=== PATIENT | male | born 1960 | race African-American/Black ===

== ENCOUNTER 2020-11-07 06:56 | Observation (INO) | payer OTHER, SELFPAY ==
[2020-11-07] VITALS (13 sets, daily range): BP systolic 102–141; BP diastolic 66–99; PULSE 70–93; RESP 18–20; TEMP 35.9–36.8; O2SAT 94–100; BMI 32.0
--- NOTE | ~2020-11-07 | US_ITS ---
US abdomen limited INDICATION: Elevated liver function tests PROCEDURE: Realtime right upper abdominal ultrasound. COMPARISON: No prior studies for comparison. FINDINGS: The pancreas is normal without focal mass or pancreatic ductal dilation. Liver echotexture is normal without focal mass or intrahepatic biliary dilatation. There is to and fro flow in the po rtal vein which can be indicative of increased portal venous pressure. There is ascites. There is gallbladder wall thickening. No gallstones. Common bile duct measures 6.5 mm. No sonograph ic Cueva's sign. IMPRESSION: 1: To and fro flow in the portal vein which can be indicative of increased portal venous pressure. 2: Ascites. 3: Mild gallbladder wall thickening measuring 6 mm. This could indicate interstitial edema, chronic l iver disease or chronic cholecystitis. Reviewed, dictated and finalized at location A. IMPRESSION: 1: To and fro flow in the portal vein which can be indicative of increased port al venous pressure. 2: Ascites. 3: Mild gallbladder wall thickening measuring 6 mm. This could indicate interst itial edema, chronic liver disease or chronic cholecystitis.
--- NOTE | ~2020-11-07 | CT_ITS ---
EXAMINATION: CT abdomen pelvis wo con DATE: 11/07/2020 17:18 INDICATION: Hematuria. TECHNIQUE: Computed tomography (CT) of the abdomen and pelvis was performed without intravenous contr ast. Automated exposure control and iterative reconstruction technique were employed. The dose-length product was 971.47 mGy-cm. COMPARISON: None. FINDINGS: The visualized portions of the lung bases demonstrate mild atelectasis. There is a small ri ght pleural effusion. Cardiomegaly is noted. There are pacer wires in the right ventricle and coronar y sinus. No pericardial effusion. Calcifications in the liver and spleen are consistent with old gran ulomatous disease. The gallbladder is normal in size. Gallbladder wall thickening is seen, likely sec ondary to interstitial edema. The pancreas, adrenal glands, and kidneys are normal. There is no uroli thiasis. Stool distends the rectum and sigmoid pain there is a large, severe on the colon. There is p rominent fat in the left inguinal canal that may be a hernia. There are widespread arterial calcifica tions. There is a mildly enlarged right external iliac lymph node, likely reactive. The bladder is de compressed. There is diffuse bladder wall thickening, likely secondary to chronic outlet obstruction from the mildly enlarged prostate. There is a small volume of ascites. There is mild thoracolumbar sp ondylosis. IMPRESSION: 1. Diffuse bladder wall thickening, likely secondary to chronic outlet obstruction from the mildly en larged prostate. 2. Stool distends the rectosigmoid. 3. Small volume of ascites. 4. Small right pleural effusion. 5. Mildly enlarged right external iliac lymph node, likely reactive. Reviewed, dictated and finalized at location A. IMPRESSION: 1. Diffuse bladder wall thickening, likely secondary to chronic outlet obstruct ion from the mildly enlarged prostate. 2. Stool distends the rectosigmoid. 3. Small volume of ascites. 4. Small right pleural effusion. 5. Mildly enlarged right external iliac lymph node, likely reactive.
--- NOTE | ~2020-11-07 | US_ITS ---
US pelvic limited 11/08/2020 09:49 Indication: Hematuria Procedure: High-resolution ultrasound of the pelvis Comparison: No prior studies for comparison. Findings: There is mild bladder wall thickening measuring 0.43 cm. No focal bladder wall mass identif ied. Bilateral ureteral jets are present. Impression: 1: Mild diffuse bladder wall thickening. Consider cystitis in the appropriate clinical setting. Reviewed, dictated and finalized at location A. Impression: 1: Mild diffuse bladder wall thickening. Consider cystitis in the appropriate c linical setting.
--- NOTE | ~2020-11-07 | CT_ITS ---
EXAMINATION: CT brain wo con DATE: 11/07/2020 17:18 INDICATION: Confusion. TECHNIQUE: Computed tomography (CT) of the head was performed without intravenous contrast. The mA wa s adjusted according to patient size. Iterative reconstruction technique was employed. The dose-lengt h product was 605.33 mGy-cm. COMPARISON: None FINDINGS: There is no intracranial hemorrhage, acute infarction, or abnormal intracranial mass lesion . The ventricles are normal in size. There is mucosal thickening in the paranasal sinuses. There is f luid in the maxillary sinuses. There is thickening and sclerosis of the lora of right sphenoid sinus , consistent chronic sinusitis. There is a trace right mastoid effusion. IMPRESSION: 1. Normal brain. 2. Chronic sinusitis. Reviewed, dictated and finalized at location A.
--- NOTE | ~2020-11-07 | XR_ITS ---
EXAMINATION: XR chest 1V portable DATE: 11/07/2020 17:30 INDICATION: Shortness of breath. TECHNIQUE: A single frontal view of the chest was obtained. COMPARISON: CT abdomen and pelvis 11/07/2020 FINDINGS: There is no pneumonia, pleural effusion, or pneumothorax. Cardiomegaly is noted. There is a left chest pacer/defibrillator with leads in right atrium, right ventricle, and coronary sinus. IMPRESSION: 1. Cardiomegaly. Reviewed, dictated and finalized at location A. IMPRESSION: 1. Cardiomegaly.
--- NOTE | ~2020-11-07 | US_ITS ---
EXAMINATION: US renal BI DATE: 11/09/2020 15:23 INDICATION: Acute kidney injury. TECHNIQUE: Multiple ultrasound grayscale images of the kidneys were obtained. COMPARISON: CT abdomen and pelvis 11/07/2020 FINDINGS: The right kidney measures 11.0 x 4.4 x 5.0 cm. The left kidney measures 11.6 x 5.2 x 4.6 cm. The kidn eys demonstrate normal parenchymal echogenicity. There is no hydronephrosis. The bladder is normal. IMPRESSION: 1. Normal kidneys. No hydronephrosis. Reviewed, dictated and finalized at location B.
--- NOTE | 2020-11-07 07:28 | ED.MALEGU ---
HPI - Male Genitourinary General Chief complaint: Urogenital-Male Stated complaint: LETHARGY,HEMATURIA Time Seen by Provider: 11/07/20 07:00 History of Present Illness HPI Narrative: 60 yo male w/ h/o DM, CHF, HTN, atrial fibrillation presents from senior living for hematuria. The patient says that he does not really know why he is here. He reports that the senior living staff woke him up and told him that there was blood in his diaper and he was going to the hospital. He denies dysuria, abdominal pain, back pain, nausea, vomiting, chest pain, SOB, weakness, or any other complaint. He says that he is on blood thinners, although only has aspirin in his med list. Per nurse and EMS report: He was found to have a long blood clot coming from his penis and when it was removed it was followed by dark urine. Related Data Home Medications Medication Instructions Recorded Confirmed allopurinol 100 mg PO DAILY 11/07/20 ascorbic acid (vitamin C) 1 g PO DAILY 11/07/20 aspirin 324 mg PO DAILY 11/07/20 carvedilol [Coreg] 3.125 mg PO BID 11/07/20 duloxetine [Cymbalta] 60 mg PO DAILY 11/07/20 emollient combination no.[id number] ea TOPICAL 11/07/20 [Eucerin] ferrous sulfate 325 mg PO DAILY 11/07/20 furosemide 80 mg PO DAILY 11/07/20 gabapentin 300 mg PO HS 11/07/20 insulin glargine [Lantus U-100 5 unit SUBCUT DAILY 11/07/20 Insulin] isosorbide dinitrate 5 mg PO BID 11/07/20 magnesium gluconate 27 mg PO DAILY 11/07/20 metolazone 2.5 mg PO DAILY 11/07/20 multivitamin [Multiple Vitamin] 1 tablet PO DAILY 11/07/20 potassium chloride 20 meq PO DAILY 11/07/20 pregabalin [Lyrica] 150 mg PO TID 11/07/20 ropinirole [Requip] 0.5 mg PO HS 11/07/20 thiamine HCl (vitamin B1) 100 mg PO DAILY 11/07/20 Allergies Allergy/AdvReac Type Severity Reaction Status Date / Time No Known Allergies Allergy Verified 11/07/20 07:31 Review of Systems Review of Systems: All systems reviewed & are unremarkable except as noted in HPI and below Constitutional: Constitutional: Denies chills, Denies fever(s) and Denies weakness Eyes: Eyes: Reports no additional eye complaints Cardiovascular: Cardiovascular: Denies chest pain Respiratory: Respiratory: Denies dyspnea Gastrointestinal: Gastrointestinal: Denies abdominal pain, Denies diarrhea, Denies nausea and Denies vomiting Genitourinary: Genitourinary: Denies dysuria Musculoskeletal: Musculoskeletal: Denies back pain Neurologic: Denies dizziness and Denies weakness PMFSH Past Medical History Medical History Atrial fibrillation CHF (congestive heart failure) Diabetes mellitus HTN (hypertension) Pacemaker Social History Social History Living arrangements: senior living Gender identity (if verbalized by the patient): Male Exam Const: General: no acute distress and alert Nutritional Appearance: well nourished Orientation/consciousness: patient oriented x3 HENMT: Mouth: Yes dry mucous membranes Eyes: Pupils: Equal, round and reactive pupils present EOM: EOMs intact bilaterally Other: mild exophthalmos and muddy sclera Neck: Neck: normal visual inspection Chest: Chest palpation & inspection: normal inspection of the chest and no tenderness Resp: Effort & Inspection: normal respiratory effort Auscultation: clear to auscultation bilaterally Cardio: Rate: regular rate Rhythm: regular rhythm GI: GI Palp: Yes Soft to palpation and No Tenderness to palpation present (GI) : General: Yes bladder normal to palpation Male General Exam: Yes normal external exam Penis: Yes normal penis and Yes uncircumcised Scrotum: scrotum normal Back/Spine/Pelvis: Back: no CVA tenderness Skin: General skin exam: normal color Rashes: no rashes Neuro: General: patient oriented x3, moves all extremities and no focal motor deficits Cranial nerves: Yes CN's II-XII intact bilaterally S
[2020-11-07] MEDS: SODIUM CHLORIDE 0.9% IV 500 ML 999 ML IV CONT (08:07)
--- NOTE | 2020-11-07 08:20 | PC.NURSE ---
Contacted lab in regards to patients blood and urine from [facility], states did not receive. MD and devulcanizer charger notified. Recollected all specimens and sent to lab.
[2020-11-07 09:09] LABS: Basophils Percent Auto 0.5 % (0.2-1.2); Eosinophils Absolute Auto 0.1 K/mm3 (0-0.3); Eosinophils Percent Auto 1.9 % (0-4.4); Hematocrit 31.4 % (42.0-52.0); Immature Granulocyte Absolute 0.02 K/mm3 (0.00-0.031); Immature Granulocyte Percent A 0.5 % (0-0.5); Immature Platelet Fraction Pct 11.5 % (0.9-11.2); Lymphocytes Absolute Auto 1.23 K/mm3 (0.9-3.2); Lymphocytes Percent Auto 28.6 % (18.3-44.2); Mean Corpuscular HGB Conc 31.8 g/dl (32-36); Mean Corpuscular Hemoglobin 32.3 pg (26-34); Mean Corpuscular Volume 101.3 fl (80-100); Mean Platelet Volume 13.3 fl (7.4-10.4); Monocytes Absolute Auto 0.5 K/mm3 (0.1-0.6); Monocytes Percent Auto 12.6 % (2.6-8.5); Neutrophils Absolute Auto 2.4 K/mm3 (1.3-6.7); Neutrophils Percent Auto 55.9 % (45.5-73.1); Platelet Count Result 61 k/mm3 (150-375); White Blood Count 4.3 K/mm3 (4.5-10.0)
[2020-11-07 09:17] LABS: Lactic Acid Reflex 2.2 mmol/L (0.7-2.1); Potassium 5.2 mmol/L (3.4-5.0)
[2020-11-07 09:18] LABS: Creatine Kinase 412 U/L (55-170)
[2020-11-07 09:20] LABS: Alanine Aminotransferase 22 U/L (4-50); Alkaline Phosphatase 221 U/L (38-126); Anion Gap 9 mmol/L (8-16); Aspartate Amino Transferase 39 U/L (17-59); Bilirubin,Total 2.6 mg/dL (0.2-1.3); Blood Urea Nitrogen 62 mg/dL (9-20); Carbon Dioxide 24 mmol/L (22-30); Chloride 106 mmol/L (98-107); Estimated CRCL calculation 43 ml/min; Estimated Glomerular Filt Rate 39; Glucose 96 mg/dL (75-110); Sodium 139 mmol/L (137-145)
[2020-11-07 09:25] LABS: Large Platelets Present; Macrocytosis 1+ (NORMAL); Ovalocytes 1+ (NORMAL); Platelet Estimate Decreased (Adequate)
[2020-11-07 09:44] LABS: Add Urine Microscopic? YES; Appearance Urine Cloudy (Clear); Bacteria Urine Trace /hpf; Bilirubin Urine Negative (Negative); Blood Urine 3+ (Negative); Color Urine Yellow (Yellow); Glucose Urine UA Negative (Negative); Ketones Urine Negative (Negative); Leukocyte Esterase Ur Trace LEU/UL (Negative); Nitrate Urine Negative (Negative); Protein Urine 1+ mg/dL (Negative); RBC Urine 21-50 /hpf (0-2); Specific Grav Ur 1.014 (1.001-1.035); Squamous Epithelial Cell Urine Rare /hpf (Few); WBC Urine 16-20 /hpf
[2020-11-07 11:33] LABS: T4 Thyroxine 8.57 ug/dL (5.53-11.0)
[2020-11-07 11:46] LABS: Total Triiodothyronine (T3) 0.92 NG/ML (0.97-1.69)
[2020-11-07 12:04] LABS: Reflex Lactic Acid Yes or No Add Lactic
[2020-11-07 12:36] LABS: Lactic Acid 1.8 mmol/L (0.7-2.1)
--- NOTE | 2020-11-07 13:27 | ADMGEN ---
This patient, Clark Montes De Oca, was admitted to [facility] Surg Room 307-01. Patient/family oriented to hospital policies and general routines including ID bracelet, bed and alarms, visiting hours, pain management, procedures, bathroom and other care routines, personal items, smoking policy, room service/diet, and visiting hours. Information on how to activate the Rapid Response Team has been discussed. Patient/Family are encouraged to report perceived risks to care and to ask questions if they do not understand what they are told or what they should do.
[2020-11-07] MEDS: LACTATED RINGERS 1,000 ML 100 ML IV CONT (14:33)
[2020-11-07 16:49] LABS: Glucose Point of Care 106 (65-105)
--- NOTE | 2020-11-07 16:53 | PM.IMHP ---
H&P: HPI History of Present Illness Date/Time: 11/07/20 16:53 this is a 60-year-old male patient who is at it was filled [facility]. The patient was sent to the emergency room due to confusion and a large clot was found in his diaper. The patient still continues to have difficulty urinating. The patient is a very poor historian and I am not able to get much information from the patient. He cannot recall of his information. I did call is power attorney general who gave me some information and also I did not receive any paperwork from the residential at this point. I am awaiting further information from them. I did call the residential and they stated that he is typically alert and orientated to person place and time. However today he had altered mental status changes and was not himself and that is why they sent him to the residential. The patient does not have a Romero catheter in is not unclear if he had previously had a Romero catheter. Or if he had any history of any problems with his prostate. The patient has exophthalmos. The patient's TSH was reported as 13.3 and his T3 0.92 and his T4 is normal. I reported these findings to my collaborative doctor continuous miner operator helper (Dr. Mcmillan) and recommended that there was nothing to do for this at this point. This gentleman looks from earlier to me however I do not see any previous admission note on this patient. The patient's lactic acid was initially 2.2 is now 1.8. Total bilirubin is 2.6 patient does appear to be jaundiced. His liver enzymes are all elevated. The patient is on thiamin so I suspect that he may have a history of alcoholism. He is also on Lyrica. I am awaiting further paperwork from the residential. The patient was started on IV fluids in the emergency room. Admitted for observation on the date of service of 11/07/2020. Chief Complaint: Hematuria Review of Systems Review of Systems: ROS unobtainable: Yes unobtainable due to mental status Constitutional: Constitutional: Reports as per HPI and Reports no additional constitutional complaints Eyes: Eyes: Reports as per HPI and Reports no additional eye complaints ENT: Reports system reviewed and no additional complaints, except as documented and Reports Normal hearing present Cardiovascular: Cardiovascular: Reports no additional cardiovascular complaints Respiratory: Respiratory: Reports no additional respiratory complaints and Reports no additional respiratory complaints Gastrointestinal: Gastrointestinal: Reports as per HPI and Reports no additional gastrointestinal complaints Musculoskeletal: Musculoskeletal: Reports no additional musculoskeletal complaints Integumentary/Breasts: Skin/Breast: Reports system reviewed and no additional complaints, except as docu and Reports as per HPI Neurologic: Reports system reviewed and no additional complaints, except as documented, Reports as per HPI and Reports Normal hearing present Psychiatric: Psychiatric: Reports no additional psychiatric complaints and Reports as per HPI Endocrine: Endocrine: Reports no additional endocrine complaints Hematologic/Lymphatic: Hematologic/Lymphatic: Reports no additional hematologic/lymphatic complaints Allergic/Immunologic: Allergic/Immunologic: Reports no additional allergic/immunologic complaints [facility] Past Medical History Medical History (Updated 11/07/20 @ 17:14 by Abigail Pillai NP) Atrial fibrillation CHF (congestive heart failure) Diabetes mellitus HTN (hypertension) Pacemaker Surgical History Surgical History (Updated 11/07/20 @ 17:07 by Abigail Pillai NP) Surgical history unknown Family History Family History Mother Heart failure Social History Social History (Updated 11/07/20 @ 17:10 by Abigail Pillai NP) Social History: The patient tells me that he is single and that he only has 1 child. The patient was not aware which residential he came from but I
[2020-11-07] MEDS: PREGABALIN (*CRX) 75 MG CAPSULE 150 MG PO (17:58)
[2020-11-07] MEDS: ISOSORBIDE DINITRATE 5 MG TABLET PO (17:59)
--- NOTE | 2020-11-07 18:25 | WPDURCON ---
Assessment and Plan Assessment and plan (1) Acute cystitis: Code(s): N30.00 - Acute cystitis without hematuria Status: Acute (2) BPH loc w urin obs/LUTS: Code(s): N40.1 - Benign prostatic hyperplasia with lower urinary tract symptoms Status: Acute (3) Microscopic hematuria: Code(s): R31.29 - Other microscopic hematuria Status: Acute Assessment and Plan: Combination of reports of difficulty voiding with microscopic hematuria, probable urinary tract infection and CT findings of prostatic enlargement with bladder wall thickening all suggest underlying BPH. I suspect his transient hematuria is a result of a hemorrhagic cystitis. A urine culture has been ordered. I will empirically start Omnicef pending culture completion. Additionally I will start both finasteride and tamsulosin for underlying BPH. Urology Consult Note HPI Date Seen: 11/07/20 Requesting Physician: Bing Mcmillan MD Primary Care Provider: Myke Varela, Consult Narrative Narrative: Clark Montes De Oca is a 60 year old male who was previously a known to our practice. He somewhat of a poor historian but was admitted through the emergency department after it was noted that he had a clot in his depends at his care home resident. In the intake history and physical there is also documentation of difficulty voiding in the past. When questioned specifically, however, the patient denies a sense of urinary hesitancy intermittency diminished stream, sense of incomplete emptying. He denies a history recurring urinary tract infection or urolithiasis in the past. Bladder scan for postvoid residual since admission was less than 25 cc. urinalysis is recently been obtained and does show signs of urinary tract infection. A CT scan abdomen pelvis without contrast shows prostatic enlargement and bladder wall thickening. Review of Systems Cardiovascular: Cardiovascular: Denies chest pain, Denies lightheadedness, Denies palpitations and Denies dyspnea Respiratory: Respiratory: Denies dyspnea Gastrointestinal: Gastrointestinal: Denies diarrhea, Denies nausea and Denies vomiting Genitourinary: Genitourinary: Denies hematuria and Denies dysuria Endocrine: Endocrine: Denies palpitations [facility] Past Medical History Medical History Atrial fibrillation CHF (congestive heart failure) Diabetes mellitus HTN (hypertension) Pacemaker Surgical History Surgical History Surgical history unknown Family History Family History Mother Heart failure Social History Social History Social History: The patient tells me that he is single and that he only has 1 child. The patient was not aware which care home he came from but I was able to talk to the contact acid plant operator helper who is also the power business attorney Misty Ortiz. The patient is listed as a full code. Again I did request information from [facility] rehab. The patient is unemployed most likely on disability. Smoking status: Never smoker Alcohol intake: never Substance use: never Living arrangements: care home Gender identity (if verbalized by the patient): Male Sexual Orientation (if Verbalized by the Patient): Straight or Heterosexual Spiritual care concerns: No Meds Home Medications and Allergies Home Medications Medication Instructions Recorded Confirmed Type allopurinol 100 mg PO DAILY 11/07/20 11/07/20 History ascorbic acid (vitamin C) 1 g PO DAILY 11/07/20 11/07/20 History aspirin 324 mg PO DAILY 11/07/20 11/07/20 History carvedilol [Coreg] 3.125 mg PO BID 11/07/20 11/07/20 History duloxetine [Cymbalta] 60 mg PO DAILY 11/07/20 11/07/20 History ferrous sulfate 325 mg PO DAILY 11/07/20 11/07/20 History furosem
[2020-11-07] MEDS: BISACODYL 10 MG SUPPOSITORY RECTAL (18:32)
[2020-11-07] MEDS: CEFDINIR 300 MG CAPSULE PO (18:33)
[2020-11-07] MEDS: TAMSULOSIN HCL 0.4 MG CAPSULE PO (18:33)
[2020-11-07 18:40] LABS: Hematocrit 32.6 % (42.0-52.0); Hemoglobin 10.3 g/dL (14.0-18.0)
[2020-11-07 18:48] LABS: Ammonia 39 umol/L (9-30)
[2020-11-07 19:03] LABS: Anion Gap 10 mmol/L (8-16); Blood Urea Nitrogen 60 mg/dL (9-20); Calcium 9.1 mg/dL (8.4-10.2); Carbon Dioxide 24 mmol/L (22-30); Chloride 105 mmol/L (98-107); Estimated CRCL calculation 40 ml/min; Estimated Glomerular Filt Rate 35; Glucose 128 mg/dL (75-110); Potassium 4.5 mmol/L (3.4-5.0); Sodium 139 mmol/L (137-145)
[2020-11-07 19:58] LABS: Hepatitis B Surface Antigen Negative (Negative)
[2020-11-07 20:04] LABS: HAV RESULT Negative (Negative); Hepatitis B Core IgM Result Negative (Negative)
[2020-11-07 20:16] LABS: Hepatitis C Virus Antibody Negative (Negative)
[2020-11-07] MEDS: carvediloL 3.125 MG TABLET PO (21:58)
[2020-11-07] MEDS: GABAPENTIN 300 MG CAPSULE PO (21:58)
[2020-11-07] MEDS: rOPINIRole HCL 0.5 MG TABLET PO (21:58)
[2020-11-07 22:09] LABS: Glucose Point of Care 121 (65-105)
[2020-11-07 23:58] LABS: Hematocrit 30.2 % (42.0-52.0); Hemoglobin 9.7 g/dL (14.0-18.0)
[2020-11-08] VITALS (11 sets, daily range): BP systolic 100–118; BP diastolic 71–81; PULSE 73–93; RESP 16–20; TEMP 36.1–36.5; O2SAT 99–100
[2020-11-08] MEDS: CEFDINIR 300 MG CAPSULE PO ×2 (05:28→16:59)
[2020-11-08 07:17] LABS: Basophils Percent Auto 0.5 % (0.2-1.2); Eosinophils Absolute Auto 0.1 K/mm3 (0-0.3); Eosinophils Percent Auto 1.2 % (0-4.4); Hematocrit 30.1 % (42.0-52.0); Hemoglobin 9.6 g/dL (14.0-18.0); Immature Granulocyte Absolute 0.01 K/mm3 (0.00-0.031); Immature Granulocyte Percent A 0.2 % (0-0.5); Lymphocytes Absolute Auto 1.15 K/mm3 (0.9-3.2); Lymphocytes Percent Auto 26.6 % (18.3-44.2); Mean Corpuscular HGB Conc 31.9 g/dl (32-36); Mean Corpuscular Hemoglobin 31.9 pg (26-34); Mean Platelet Volume 12.7 fl (7.4-10.4); Monocytes Absolute Auto 0.5 K/mm3 (0.1-0.6); Monocytes Percent Auto 11.3 % (2.6-8.5); Neutrophils Absolute Auto 2.6 K/mm3 (1.3-6.7); Neutrophils Percent Auto 60.2 % (45.5-73.1); Platelet Count Result 55 k/mm3 (150-375); Red Blood Count 3.01 M/mm3 (4.6-6.20); Red Cell Distribution Width 17.9 % (11.5-14.5); White Blood Count 4.3 K/mm3 (4.5-10.0)
[2020-11-08 07:25] LABS: Hemoglobin A1C 5.7 % (<5.7)
[2020-11-08 07:27] LABS: Lactic Acid Reflex 1.8 mmol/L (0.7-2.1)
[2020-11-08 07:31] LABS: Alanine Aminotransferase 21 U/L (4-50); Albumin Level 3.7 g/dL (3.5-5.1); Alkaline Phosphatase 207 U/L (38-126); Anion Gap 9 mmol/L (8-16); Aspartate Amino Transferase 32 U/L (17-59); Bilirubin,Total 2.8 mg/dL (0.2-1.3); Blood Urea Nitrogen 56 mg/dL (9-20); Calcium 8.9 mg/dL (8.4-10.2); Carbon Dioxide 23 mmol/L (22-30); Chloride 107 mmol/L (98-107); Estimated CRCL calculation 44 ml/min; Estimated Glomerular Filt Rate 39; Glucose 103 mg/dL (75-110); Magnesium 2.3 mg/dL (1.6-2.3); Sodium 139 mmol/L (137-145)
[2020-11-08 07:46] LABS: Glucose Point of Care 82 (65-105)
[2020-11-08 09:13] LABS: Ammonia 47 umol/L (9-30)
[2020-11-08 09:22] LABS: Free T4 Free Thyroxine Reflex 1.62 ng/dL (0.78-2.19)
[2020-11-08] MEDS: INSULIN GLARGINE (*BKC) 100 UNITS/ML SUB-Q (09:43)
[2020-11-08] MEDS: THIAMINE HCL 100 MG TABLET PO (09:57)
[2020-11-08] MEDS: MAGNESIUM 27 MG TABLET (500 MG MAG GLUCONATE) PO (09:57)
[2020-11-08] MEDS: FERROUS SULFATE 324 MG TABLET PO (09:57)
[2020-11-08] MEDS: FINASTERIDE 5 MG TABLET PO (09:57)
[2020-11-08] MEDS: FUROSEMIDE 80 MG TABLET PO (09:57)
[2020-11-08] MEDS: carvediloL 3.125 MG TABLET PO ×2 (09:58→20:14)
[2020-11-08] MEDS: ISOSORBIDE DINITRATE 5 MG TABLET PO ×2 (09:59→16:59)
[2020-11-08] MEDS: MULTIVITAMINS THERAPEUTIC TAB (*BKC) 1 TABLET PO (09:59)
[2020-11-08] MEDS: EUCERIN CREAM 120 GM JAR 1 APPLIC TOPICAL (09:59)
[2020-11-08] MEDS: ASCORBIC ACID 500 MG TABLET 1000 MG PO (10:00)
[2020-11-08] MEDS: PREGABALIN (*CRX) 75 MG CAPSULE 150 MG PO ×3 (10:03→16:59)
[2020-11-08 10:43] LABS: Hematocrit 30.1 % (42.0-52.0); Hemoglobin 9.8 g/dL (14.0-18.0)
[2020-11-08] MEDS: DULoxetine HCL 60 MG CAPSULE.DR PO (10:50)
[2020-11-08] MEDS: LACTULOSE 20 GM/30 ML UDC PO ×2 (10:50→20:17)
[2020-11-08 11:36] LABS: Glucose Point of Care 85 (65-105)
--- NOTE | 2020-11-08 11:37 | WPDUROPN2 ---
Progress Note: A&P Assessment and Plan (1) Acute cystitis: Code(s): N30.00 - Acute cystitis without hematuria Status: Acute (2) BPH loc w urin obs/LUTS: Code(s): N40.1 - Benign prostatic hyperplasia with lower urinary tract symptoms Status: Acute (3) Microscopic hematuria: Code(s): R31.29 - Other microscopic hematuria Status: Acute Assessment and Plan: Combination of reports of difficulty voiding with microscopic hematuria, probable urinary tract infection and CT findings of prostatic enlargement with bladder wall thickening all suggest underlying BPH. I suspect his transient hematuria is a result of a hemorrhagic cystitis. A urine culture has been ordered. I will empirically start Omnicef pending culture completion. Additionally I will start both finasteride and tamsulosin for underlying BPH. 11/08/2020 Continues to void well without gross hematuria or signs of retention. Await urine culture. Continue both Finasteride and Tamsulosin. Subjective Subjective Date/Time Seen: 11/08/20 11:37 Comfortable, voiding well Review of Systems Cardiovascular: Cardiovascular: Denies chest pain, Denies lightheadedness, Denies palpitations and Denies dyspnea Respiratory: Respiratory: Denies dyspnea Gastrointestinal: Gastrointestinal: Denies diarrhea, Denies nausea and Denies vomiting Genitourinary: Genitourinary: Denies hematuria and Denies dysuria Endocrine: Endocrine: Denies palpitations Exam Const: General: no acute distress Resp: Effort & Inspection: normal respiratory effort GI: Inspection: non-distended GI Palp: No abdominal tenderness and No Guarding due to palpation present (GI) Auscultation: normal bowel sounds Objective Data Vital Signs Vital Signs: Vital Signs - 24 hr 11/07/20 11:59 11/07/20 12:33 11/07/20 13:20 Temperature 97.3 F L 97.1 F L 97.4 F L Pulse Rate 92 90 75 Respiratory Rate 18 18 18 Blood Pressure 127/93 H 141/66 H 105/82 Pulse Oximetry 99 97 100 11/07/20 14:00 11/07/20 16:00 11/07/20 20:00 Temperature 97.5 F L Pulse Rate 78 92 91 Respiratory Rate 18 Blood Pressure 117/87 Pulse Oximetry 100 11/07/20 21:46 11/07/20 21:58 11/08/20 00:00 Temperature 98.2 F Pulse Rate 70 92 91 Respiratory Rate 20 Blood Pressure 113/81 Pulse Oximetry 95 11/08/20 04:00 11/08/20 05:30 11/08/20 08:00 Temperature 97.6 F Pulse Rate 90 91 93 Respiratory Rate 20 Blood Pressure 114/71 Pulse Oximetry 99 11/08/20 09:58 Temperature Pulse Rate 74 Respiratory Rate Blood Pressure Pulse Oximetry Intake/Output Intake/Output: Intake & Output 11/05/20 11/06/20 11/07/20 11/08/20 23:59 23:59 23:59 23:59 Intake Total 760 150 Output Total 300 Balance 760 -150 Meds/Results Medications: Active Medications Generic Name Dose Route Start Last Admin Trade Name Freq PRN Reason Stop Dose Admin Ascorbic Acid 1,000 mg 11/08/20 09:00 11/08/20 10:00 Ascorbic Acid 500 Mg Tablet PO 1,000 mg DAILY VALERIY Administration Carvedilol 3.125 mg 11/07/20 21:00 11/08/20 09:58 Carvedilol 3.125 Mg Tablet PO 3.125 mg Q12HR VALERIY Administration Cefdinir 300 mg 11/07/20 18:00 11/08/20 05:28 Cefdinir 300 Mg Capsule PO 300 mg Q12H VALERIY Administration Dextrose 12.5 gm 11/07/20 16:33 Dextrose 50% 25 Gm/50 Ml Syringe IV PUSH PRN PRN Hypoglycemia Protocol Duloxetine HCl 60 mg 11/08/20 09:00 11/08/20 10:50 Duloxetine Hcl 60 Mg Capsule.Dr PO 60 mg DAILY VALERIY Administration Ferrous Sulfate 324 mg 11/08/20 09:00 11/08/20 09:57 Ferrous Sulfate 324 Mg Tablet PO 324 mg DAILY VALERIY Administration Finasteride 5 mg 11/08/20 09:00 11/08/20 09:57 Finasteride 5 Mg Tablet PO 5 mg QAM VALERIY Administration Furosemide 80 mg 11/08/20 09:00 11/08/20 09:57 Furosemide 80 Mg Tablet PO 80 mg DAILY VALERIY Administration Gabapentin 300 mg 11/07/20 21:00
[2020-11-08] MEDS: TAMSULOSIN HCL 0.4 MG CAPSULE PO (12:14)
[2020-11-08] MEDS: LACTATED RINGERS 1,000 ML 100 ML IV CONT (15:15)
--- NOTE | 2020-11-08 15:16 | PM.IMPN ---
Progress Note: A&P Assessment and Plan (1) Hematuria: Qualifiers: Hematuria type: unspecified type Qualified Code(s): R31.9 - Hematuria, unspecified Code(s): R31.9 - Hematuria, unspecified Status: Acute Assessment and Plan: [facility] due to blood in [facility]. No further evidence of bleeding today. H&H low but stable. Appreciate urology recommendations. Suspect may be related to cystitis. Continue cefdinir while awaiting urine culture results. He has been started on Flomax and Proscar as well for BPH. (2) Encephalopathy: Code(s): G93.40 - Encephalopathy, unspecified Status: Acute Assessment and Plan: Differentials include possible metabolic encephalopathy related to acute UTI vs. hepatic encephalopathy vs. both. Unclear patient's cognitive baseline. Today he is oriented to self and place but not time. CT brain shows no acute intracranial abnormalities. Ammonia is elevated at 47, initiate lactulose and titrate to hopefully achieve 2-3 bowel movements per day and monitor mentation. (3) Elevated TSH: Code(s): R79.89 - Other specified abnormal findings of blood chemistry Status: Acute Assessment and Plan: TSH elevated at 10.7, total T3 mildly low, T4 within normal limits. Consider rechecking closer to discharge before initiating thyroid supplementation since he is acutely ill. Vital signs are stable. (4) Anemia: Qualifiers: Anemia type: unspecified type Qualified Code(s): D64.9 - Anemia, unspecified Code(s): D64.9 - Anemia, unspecified Status: Acute Assessment and Plan: H&H low but stable. Chronicity unclear without previous labs available to review. It is possible he may have underlying CKD contributing to anemia. No further hematuria today. Monitor for further bleeding and monitor CBC. Consider transfusion if Hgb less than 7. (5) Elevated liver enzymes: Code(s): R74.8 - Abnormal levels of other serum enzymes Status: Acute Assessment and Plan: AST, ALT within normal limits. Alk-phos is elevated. Again, chronicity unclear with no previous labs for review. Hepatitis panel is negative. Imaging is consistent with liver disease and portal venous hypertension. 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 Continue home Lantus. Blood sugars are appropriate today. Continue to monitor with accu-cheks and adjust treatment as needed, cover with SSI. (7) CHF (congestive heart failure): Qualifiers: Heart failure type: unspecified Heart failure chronicity: unspecified Qualified Code(s): I50.9 - Heart failure, unspecified Code(s): I50.9 - Heart failure, unspecified Status: Chronic Assessment and Plan: Unsure of type without records available. Maintained on home Lasix, metolazone, isosorbide. Monitor with daily weights, I&Os. (8) Atrial fibrillation: Qualifiers: Atrial fibrillation type: unspecified Qualified Code(s): I48.91 - Unspecified atrial fibrillation Code(s): I48.91 - Unspecified atrial fibrillation Status: Chronic Assessment and Plan: Maintained on home Coreg. Aspirin is held due to hematuria. Does not appear to be on sys
[2020-11-08 16:28] LABS: Glucose Point of Care 87 (65-105)
[2020-11-08] MEDS: rOPINIRole HCL 0.5 MG TABLET PO (20:17)
[2020-11-08] MEDS: GABAPENTIN 300 MG CAPSULE PO (20:17)
[2020-11-08 22:51] LABS: Glucose Point of Care 109 (65-105)
[2020-11-09] VITALS (11 sets, daily range): BP systolic 105–124; BP diastolic 68–96; PULSE 72–93; RESP 18–20; TEMP 36.1–36.6; O2SAT 90–99
[2020-11-09 05:55] LABS: Basophils Percent Auto 0.8 % (0.2-1.2); Eosinophils Absolute Auto 0.1 K/mm3 (0-0.3); Eosinophils Percent Auto 1.6 % (0-4.4); Hematocrit 31.8 % (42.0-52.0); Hemoglobin 10.1 g/dL (14.0-18.0); Immature Granulocyte Absolute 0.02 K/mm3 (0.00-0.031); Immature Granulocyte Percent A 0.4 % (0-0.5); Lymphocytes Absolute Auto 1.18 K/mm3 (0.9-3.2); Lymphocytes Percent Auto 24.3 % (18.3-44.2); Mean Corpuscular HGB Conc 31.8 g/dl (32-36); Mean Corpuscular Volume 100.6 fl (80-100); Mean Platelet Volume 12.4 fl (7.4-10.4); Monocytes Absolute Auto 0.5 K/mm3 (0.1-0.6); Monocytes Percent Auto 10.7 % (2.6-8.5); Neutrophils Percent Auto 62.2 % (45.5-73.1); Platelet Count Result 55 k/mm3 (150-375); Red Blood Count 3.16 M/mm3 (4.6-6.20); Red Cell Distribution Width 17.6 % (11.5-14.5); White Blood Count 4.9 K/mm3 (4.5-10.0)
[2020-11-09] MEDS: CEFDINIR 300 MG CAPSULE PO ×2 (06:01→17:03)
[2020-11-09] MEDS: LACTATED RINGERS 1,000 ML 75 ML IV CONT (06:02)
[2020-11-09 06:04] LABS: Alanine Aminotransferase 20 U/L (4-50); Albumin Level 3.5 g/dL (3.5-5.1); Alkaline Phosphatase 203 U/L (38-126); Anion Gap 7 mmol/L (8-16); Aspartate Amino Transferase 30 U/L (17-59); Bilirubin,Total 2.9 mg/dL (0.2-1.3); Blood Urea Nitrogen 50 mg/dL (9-20); Calcium 8.7 mg/dL (8.4-10.2); Carbon Dioxide 25 mmol/L (22-30); Chloride 107 mmol/L (98-107); Estimated CRCL calculation 48 ml/min; Estimated Glomerular Filt Rate 44; Glucose 107 mg/dL (75-110); Magnesium 2.2 mg/dL (1.6-2.3); Potassium 4.2 mmol/L (3.4-5.0); Sodium 139 mmol/L (137-145)
[2020-11-09 06:06] LABS: Ammonia 19 umol/L (9-30)
--- NOTE | 2020-11-09 06:41 | WPDUROPN2 ---
Progress Note: A&P Assessment and Plan (1) BPH loc w urin obs/LUTS: Code(s): N40.1 - Benign prostatic hyperplasia with lower urinary tract symptoms Status: Acute (2) Acute cystitis: Code(s): N30.00 - Acute cystitis without hematuria Status: Acute Assessment and Plan: Nothing new from standpoint. Still waiting for completion of urine culture Subjective Subjective Date/Time Seen: 11/09/20 06:41 Comfortable, voiding well Review of Systems Cardiovascular: Cardiovascular: Denies chest pain, Denies lightheadedness, Denies palpitations and Denies dyspnea Respiratory: Respiratory: Denies dyspnea Gastrointestinal: Gastrointestinal: Denies diarrhea, Denies nausea and Denies vomiting Genitourinary: Genitourinary: Denies hematuria and Denies dysuria Endocrine: Endocrine: Denies palpitations Exam Const: General: no acute distress Resp: Effort & Inspection: normal respiratory effort GI: Inspection: non-distended GI Palp: No abdominal tenderness and No Guarding due to palpation present (GI) Auscultation: normal bowel sounds Objective Data Vital Signs Vital Signs: Vital Signs - 24 hr 11/08/20 08:00 11/08/20 09:58 11/08/20 12:00 Temperature Pulse Rate 93 74 93 Respiratory Rate Blood Pressure Pulse Oximetry 11/08/20 14:00 11/08/20 16:00 11/08/20 20:00 Temperature 97.7 F Pulse Rate 85 87 89 Respiratory Rate 16 Blood Pressure 118/81 Pulse Oximetry 100 11/08/20 20:14 11/08/20 22:00 11/09/20 00:00 Temperature 97 F L Pulse Rate 73 73 76 Respiratory Rate 16 Blood Pressure 100/78 Pulse Oximetry 100 11/09/20 04:00 11/09/20 06:00 Temperature 96.9 F L Pulse Rate 75 78 Respiratory Rate 18 Blood Pressure 118/78 Pulse Oximetry 99 Intake/Output Intake/Output: Intake & Output 11/06/20 11/07/20 11/08/20 11/09/20 23:59 23:59 23:59 23:59 Intake Total 760 1640 1150 Output Total 735 400 Balance 760 905 750 Meds/Results Medications: Active Medications Generic Name Dose Route Start Last Admin Trade Name Freq PRN Reason Stop Dose Admin Ascorbic Acid 1,000 mg 11/08/20 09:00 11/08/20 10:00 Ascorbic Acid 500 Mg Tablet PO 1,000 mg DAILY VALERIY Administration Carvedilol 3.125 mg 11/07/20 21:00 11/08/20 20:14 Carvedilol 3.125 Mg Tablet PO 3.125 mg Q12HR VALERIY Administration Cefdinir 300 mg 11/07/20 18:00 11/09/20 06:01 Cefdinir 300 Mg Capsule PO 300 mg Q12H VALERIY Administration Dextrose 12.5 gm 11/07/20 16:33 Dextrose 50% 25 Gm/50 Ml Syringe IV PUSH PRN PRN Hypoglycemia Protocol Duloxetine HCl 60 mg 11/08/20 09:00 11/08/20 10:50 Duloxetine Hcl 60 Mg Capsule.Dr PO 60 mg DAILY VALERIY Administration Ferrous Sulfate 324 mg 11/08/20 09:00 11/08/20 09:57 Ferrous Sulfate 324 Mg Tablet PO 324 mg DAILY VALERIY Administration Finasteride 5 mg 11/08/20 09:00 11/08/20 09:57 Finasteride 5 Mg Tablet PO 5 mg QAM VALERIY Administration Furosemide 80 mg 11/08/20 09:00 11/08/20 09:57 Furosemide 80 Mg Tablet PO 80 mg DAILY VALERIY Administration Gabapentin 300 mg 11/07/20 21:00 11/08/20 20:17 Gabapentin 300 Mg Capsule PO 300 mg HS VALERIY Administration Glucagon 1 mg 11/07/20 16:33 Glucagon For Inj 1 Mg Vial IM PRN PRN Hypoglycemia Protocol Glucose 15 gm 11/07/20 16:33 Glucose Oral Gel 15 Gm Of Glucse In 37.5 Gm Tube PO PRN PRN Hypoglycemia Protocol Lactated Ringer's 1,000 mls @ 75 mls/hr 11/07/20 10:15 11/09/20 06:02 Lr - Lactated Ringers Iv IV CONT 75 mls/hr .[id number] VALERIY Administration Dextrose 1,000 mls @ 100 mls/hr 11/07/20 16:33 Dextrose 5% 1,000 Ml IVPB PRN PRN Hypoglycemia Protocol Insulin Aspart 2 - 5 units 11/07/20 17:00 11/08/20 16:27 Insulin Aspart (*Bkc) 100 Units/Ml SUB-Q Not Given TIDWM VALERIY Protocol Insulin Glargine 5 units 11/08/20 09:00 050
[2020-11-09 08:24] LABS: Glucose Point of Care 89 (65-105)
--- NOTE | 2020-11-09 11:14 | PM.IMPN ---
Progress Note: A&P Assessment and Plan (1) Hematuria: Qualifiers: Hematuria type: unspecified type Qualified Code(s): R31.9 - Hematuria, unspecified Code(s): R31.9 - Hematuria, unspecified Status: Acute Assessment and Plan: Brought in from intermediate due to blood in diaper. No further evidence of bleeding today. H&H stable and no ongoing blood loss Appreciate urology consultation. Concern for cystitis based on symptoms and findings of mild diffuse bladder wall thickening on pelvic US, however urine culture negative. Continue PO cefdinir until further urology recommendations. He has been started on Flomax and Proscar as well for BPH. (2) Encephalopathy: Code(s): G93.40 - Encephalopathy, unspecified Status: Acute Assessment and Plan: Seems to be improving. Differentials include possible metabolic encephalopathy related to acute UTI vs. hepatic encephalopathy vs. both. Unclear patient's cognitive baseline. He remains oriented to self and place. He can answer all questions appropriately. He cannot accurately state year. CT brain shows no acute intracranial abnormalities. Ammonia was elevated at 47, therefore lactulose was started with goal of 2-3 bowel movements per day. Bowel movements have been regular and ammonia is wnl. Monitor stool patterns for titration of lactulose (3) Elevated TSH: Code(s): R79.89 - Other specified abnormal findings of blood chemistry Status: Acute Assessment and Plan: TSH elevated at 10.7, total T3 mildly low, T4 within normal limits. Will plan to recheck TSH tomorrow morning. Vital signs are stable. (4) Anemia: Qualifiers: Anemia type: unspecified type Qualified Code(s): D64.9 - Anemia, unspecified Code(s): D64.9 - Anemia, unspecified Status: Acute Assessment and Plan: H&H low but stable. Chronicity unclear without previous labs available to review. It is possible he may have underlying CKD contributing to anemia. No further hematuria today. Monitor for further bleeding and monitor CBC. Consider transfusion if Hgb less than 7. Macrocytic anemia noted - will check B12 and folate. (5) Elevated liver enzymes: Code(s): R74.8 - Abnormal levels of other serum enzymes Status: Acute Assessment and Plan: AST, ALT within normal limits. Alk-phos is elevated. Again, chronicity unclear with no previous labs for review. Hepatitis panel is negative. Imaging is consistent with liver disease and portal venous hypertension. No significant ascites noted on exam. Platelets are low and will be monitored. Total bilirubin elevated with mild scleral icterus. Discussed case with GI Dr. Banuelos. Will plan for outpatient referral to GI for further evaluation. (6) Diabetes mellitus: Qualifiers: Diabetes mellitus type: type 2 Diabetes mellitus [facility] insulin use: with [facility] use Diabetes mellitus complication status: without complication Qualified Code(s): E11.9 - Type 2 diabetes mellitus without complications; Z79.4 - petroleum terminal plant operator (current) use of insulin Code(s): E11.9 - Type 2 diabetes mellitus without complications Status: Chronic Assessment and Plan: Hgb A1c 5.7%. Continue low-dose home Lantus. Blood sugars are appropriate today. Continue to monitor with accu-cheks and adjust treatment as needed, cover with SSI. (7) CHF (congestive heart failure): Qualifiers: Heart failure type: unspecified Heart failure chronicity: unspecified Qualified Code(s): I50.9 - Heart failure, unspecified Code(s): I50.9 - Heart failure, unspecified Status: Chronic Assessment and Plan: Unsure of type without records available. No prior echo available for review. Maintained on home Lasix, metolazone, isosorbide. He appears euvolemic. Monitor with daily weights, I&Os. (8) Atrial fibrillation: Qualifiers: A
[2020-11-09] MEDS: PREGABALIN (*CRX) 75 MG CAPSULE 150 MG PO ×2 (11:15→17:03)
[2020-11-09] MEDS: metOLazone 2.5 MG TABLET PO (11:15)
[2020-11-09] MEDS: ASCORBIC ACID 500 MG TABLET 1000 MG PO (11:15)
[2020-11-09] MEDS: FERROUS SULFATE 324 MG TABLET PO (11:15)
[2020-11-09] MEDS: ISOSORBIDE DINITRATE 5 MG TABLET PO ×2 (11:15→17:04)
[2020-11-09] MEDS: MULTIVITAMINS THERAPEUTIC TAB (*BKC) 1 TABLET PO (11:16)
[2020-11-09] MEDS: TAMSULOSIN HCL 0.4 MG CAPSULE PO (11:16)
[2020-11-09] MEDS: FINASTERIDE 5 MG TABLET PO (11:16)
[2020-11-09] MEDS: LACTULOSE 20 GM/30 ML UDC PO (11:16)
[2020-11-09] MEDS: carvediloL 3.125 MG TABLET PO ×2 (11:16→21:08)
[2020-11-09] MEDS: FUROSEMIDE 80 MG TABLET PO (11:16)
[2020-11-09] MEDS: MAGNESIUM 27 MG TABLET (500 MG MAG GLUCONATE) PO (11:17)
[2020-11-09] MEDS: THIAMINE HCL 100 MG TABLET PO (11:17)
[2020-11-09] MEDS: INSULIN GLARGINE (*BKC) 100 UNITS/ML SUB-Q (11:17)
[2020-11-09] MEDS: EUCERIN CREAM 120 GM JAR 1 APPLIC TOPICAL (11:17)
--- NOTE | 2020-11-09 12:08 | PC.NURSE ---
Pt IV access leaking upon assessment. Stopped fluids. Also, pt refusing to take lactulose. PA made aware of both. Okay to hold fluids for now and for pt to not have IV access. PA wants RN to encourage intake of other PO lactulose to promote stooling.
[2020-11-09 12:45] LABS: Glucose Point of Care 183 (65-105)
--- NOTE | 2020-11-09 13:00 | PDONCCN ---
HPI - Date of Consult Date/Time: 11/09/20 13:00 Requesting Physician: Jazmine Allen PA-C Primary Care Provider: Myke Varela, - Consult Narrative Reason for consult: Anemia. Narrative: Clark Montes De Oca is a 60 year old male with history of chronic kidney disease diagnosed more than 10 years ago. Patient is a rehab facility resident for last 6 weeks duration is status post fall. He is getting better with improvement in muscle strain. He remains quite tired and fatigued. He was brought into the hospital with complain of hematuria noted by the nursing staff. His labs showed hemoglobin of 10.0 on admission. Creatinine 1.9. I checked his urine there is no evidence of bleeding. He denies any melena hematochezia. He has been eating well. Patient denies being a vegetarian. He denies any previous history of anemia. Patient also has CT brain done for possible encephalopathy that showed no intracranial abnormalities. The TSH was found to be slightly elevated. Urology service was consulted for hematuria. Pelvic ultrasound showed diffuse bladder wall thickening Review of Systems - Review of Systems All systems reviewed & are unremarkable except as noted in HPI and bel - Neurologic Reports system reviewed and no additional complaints, except as documented, Reports hearing normal, Denies weakness PMFSH Medical History: Medical History (Last Reviewed 11/07/20 @ 18:27 by Gerry Monterroso MD) Atrial fibrillation CHF (congestive heart failure) Diabetes mellitus HTN (hypertension) Pacemaker Surgical History: Surgical History (Last Reviewed 11/07/20 @ 18:27 by Gerry Monterroso MD) Surgical history unknown Family History: Family History (Last Reviewed 11/07/20 @ 18:27 by Gerry Monterroso MD) Mother Heart failure - Social History Social History: Social History (Last Reviewed 11/07/20 @ 18:27 by Gerry Monterroso MD) Gender Identity: Gender identity (if verbalized by the patient): Male Sexual Orientation: Sexual Orientation (if Verbalized by the Patient): Straight or Heterosexual Alcohol Use: Alcohol intake: never Substance Use: Substance use: never Others: Spiritual care concerns: No Living Arrangements: Living arrangements: shelter Smoking Status: Smoking status: Never smoker Meds Home Medications Medication Instructions Recorded Confirmed Type allopurinol 100 mg PO DAILY 11/07/20 11/07/20 History ascorbic acid (vitamin C) 1 g PO DAILY 11/07/20 11/07/20 History aspirin 324 mg PO DAILY 11/07/20 11/07/20 History carvedilol [Coreg] 3.125 mg PO BID 11/07/20 11/07/20 History duloxetine [Cymbalta] 60 mg PO DAILY 11/07/20 11/07/20 History ferrous sulfate 325 mg PO DAILY 11/07/20 11/07/20 History furosemide 80 mg PO DAILY 11/07/20 11/07/20 History gabapentin 300 mg PO HS 11/07/20 11/07/20 History insulin glargine [Lantus U-100 5 unit SUBCUT DAILY 11/07/20 11/07/20 History Insulin] isosorbide dinitrate 5 mg PO BID 11/07/20 11/07/20 History magnesium gluconate 27 mg PO DAILY 11/07/20 11/07/20 History metolazone 2.5 mg PO DAILY 11/07/20 11/07/20 History multivitamin [Multiple Vitamin] 1 tablet PO DAILY 11/07/20 11/07/20 History potassium chloride 20 meq PO DAILY 11/07/20 11/07/20 History pregabalin [Lyrica] 150 mg PO TID 11/07/20 11/07/20 History ropinirole [Requip] 0.5 mg PO HS 11/07/20 11/07/20 History thiamine HCl (vitamin B1) 100 mg PO DAILY 11/07/20 11/07/20 History Allergies Allergy/AdvReac Type Severity Reaction Status Date / Time No Known Allergies Allergy Verified 11/07/20 13:36 Results - Labs CBC & Chem 7: 11/09/20 05:37 11/09/20 05:37 Labs: Short CBC 11/09/20 Range/Units 05:37 WBC 4.9 (4.5-10.0) K/mm3 Hgb 10.1 L (14.0-18.0) g/dL Hct 31.8 L (42.0-52.0) % Plt Count 55 L (150-375) k/mm3 [facility] 11/09/20 05:37 Sodium 139 Potassium 4.2 Chloride 107 Carbon Dioxide 25
[2020-11-09 14:59] LABS: INR 1.7
[2020-11-09 15:00] LABS: Partial Thromboplastin Time 41.5 SECONDS (22.3-36.8)
[2020-11-09 16:36] LABS: Iron 78 ug/dL (49-181)
[2020-11-09 16:59] LABS: Percent Iron Saturation 22 % (20-50)
[2020-11-09] MEDS: DULoxetine HCL 60 MG CAPSULE.DR PO (17:03)
[2020-11-09 17:50] LABS: Glucose Point of Care 123 (65-105)
[2020-11-09 19:19] LABS: SARS-CoV-2 RNA PCR Negative
[2020-11-09] MEDS: GABAPENTIN 300 MG CAPSULE PO (21:08)
[2020-11-09] MEDS: rOPINIRole HCL 0.5 MG TABLET PO (21:08)
--- NOTE | 2020-11-09 21:13 | PC.NURSE ---
patient refused scheduled lactulose tonight, offered it with food, drink, applesauce, etc and he said I don't take that damn stuff .. will try after he gets some rest. -CYNDI RN
[2020-11-09 21:20] LABS: Glucose Point of Care 119 (65-105)
[2020-11-10] VITALS (7 sets, daily range): BP systolic 98–104; BP diastolic 66–76; PULSE 70–81; RESP 16–20; TEMP 36.7; O2SAT 94–100
[2020-11-10] MEDS: CEFDINIR 300 MG CAPSULE PO (05:54)
[2020-11-10 06:23] LABS: Hematocrit 29.4 % (42.0-52.0); Hemoglobin 9.5 g/dL (14.0-18.0); Mean Corpuscular HGB Conc 32.3 g/dl (32-36); Mean Corpuscular Hemoglobin 32.2 pg (26-34); Mean Corpuscular Volume 99.7 fl (80-100); Mean Platelet Volume 12.9 fl (7.4-10.4); Platelet Count Result 57 k/mm3 (150-375); Red Blood Count 2.95 M/mm3 (4.6-6.20); Red Cell Distribution Width 17.5 % (11.5-14.5); White Blood Count 4.6 K/mm3 (4.5-10.0)
[2020-11-10 06:32] LABS: INR 1.7; Prothrombin Time 20.1 Seconds (11.1-14.7)
[2020-11-10 06:37] LABS: Alanine Aminotransferase 20 U/L (4-50); Albumin Level 3.4 g/dL (3.5-5.1); Alkaline Phosphatase 193 U/L (38-126); Anion Gap 8 mmol/L (8-16); Aspartate Amino Transferase 31 U/L (17-59); Bilirubin,Total 2.4 mg/dL (0.2-1.3); Blood Urea Nitrogen 49 mg/dL (9-20); Calcium 8.6 mg/dL (8.4-10.2); Carbon Dioxide 28 mmol/L (22-30); Chloride 103 mmol/L (98-107); Estimated CRCL calculation 54 ml/min; Estimated Glomerular Filt Rate 50; Glucose 109 mg/dL (75-110); Potassium 3.7 mmol/L (3.4-5.0); Sodium 139 mmol/L (137-145)
[2020-11-10 07:41] LABS: Folic Acid > 20.0 ng/mL (2.76->20)
[2020-11-10] MEDS: LACTULOSE 20 GM/30 ML UDC PO (09:40)
[2020-11-10] MEDS: ASCORBIC ACID 500 MG TABLET 1000 MG PO (09:41)
[2020-11-10] MEDS: MAGNESIUM 27 MG TABLET (500 MG MAG GLUCONATE) PO (09:41)
[2020-11-10] MEDS: ISOSORBIDE DINITRATE 5 MG TABLET PO (09:41)
[2020-11-10] MEDS: TAMSULOSIN HCL 0.4 MG CAPSULE PO (09:41)
[2020-11-10] MEDS: FINASTERIDE 5 MG TABLET PO (09:41)
[2020-11-10] MEDS: FERROUS SULFATE 324 MG TABLET PO (09:41)
[2020-11-10] MEDS: PREGABALIN (*CRX) 75 MG CAPSULE 150 MG PO ×2 (09:41→12:30)
[2020-11-10] MEDS: DULoxetine HCL 60 MG CAPSULE.DR PO (09:41)
[2020-11-10] MEDS: carvediloL 3.125 MG TABLET PO (09:41)
[2020-11-10] MEDS: MULTIVITAMINS THERAPEUTIC TAB (*BKC) 1 TABLET PO (09:42)
[2020-11-10] MEDS: INSULIN GLARGINE (*BKC) 100 UNITS/ML SUB-Q (09:42)
[2020-11-10] MEDS: THIAMINE HCL 100 MG TABLET PO (09:42)
[2020-11-10] MEDS: FUROSEMIDE 80 MG TABLET PO (09:42)
[2020-11-10] MEDS: EUCERIN CREAM 120 GM JAR 1 APPLIC TOPICAL (09:42)
[2020-11-10 12:29] LABS: Glucose Point of Care 133 (65-105)
[2020-11-10 12:36] LABS: Glucose Point of Care 93 (65-105)
--- NOTE | 2020-11-10 13:45 | PM.DS ---
DS: Admitting Diagnosis Admitting Diagnosis Admitting Diagnosis: Hematuria DS: Discharge Diagnosis Discharge Diagnosis (1) Hematuria: Qualifiers: Hematuria type: unspecified type Qualified Code(s): R31.9 - Hematuria, unspecified Code(s): R31.9 - Hematuria, unspecified Status: Acute Assessment and Plan: Brought in from senior care due to blood in diaper which resolved. H&H stable with no further blood loss. He was seen in consultation by Urology. There was initially concern for cystitis based on mild diffuse bladder wall thickening noted on pelvic ultrasound. He was started on p.o. cefdinir. Urine culture ultimately negative and antibiotics discontinued per Urology recommendations. Symptoms most likely related to BPH. Flomax and Proscar initiated and will be continued. Follow-up with urology in 4 weeks. (2) Encephalopathy: Code(s): G93.40 - Encephalopathy, unspecified Status: Acute Assessment and Plan: Improved. Cognitive baseline is unknown. He answered all questions appropriately and was accurately oriented to self and place. Head CT was no acute intracranial findings. Ammonia was elevated at 47, therefore hepatic encephalopathy felt to be most likely. Lactulose initiated with goal of 2-3 bowel movements per day. Ammonia levels declined and bowel movements were regular. (3) Elevated liver enzymes: Code(s): R74.8 - Abnormal levels of other serum enzymes Status: Acute Assessment and Plan: AST, ALT within normal limits. Alk-phos is elevated. Chronicity unclear with no previous labs for review. Hepatitis panel is negative. Imaging is consistent with liver disease and portal venous hypertension. No significant ascites noted on exam. Platelets low. Total bilirubin elevated with mild scleral icterus. Discussed case with GI Dr. Banuelos and patient was referred for GI follow up in 1 week. (4) Elevated TSH: Code(s): R79.89 - Other specified abnormal findings of blood chemistry Status: Acute Assessment and Plan: TSH elevated at 10.7, total T3 mildly low, T4 within normal limits. Vitals stable. He should obtain repeat TSH with reflex in 4 weeks for further evaluation. (5) Diabetes mellitus: Qualifiers: Diabetes mellitus type: type 2 Diabetes mellitus intermodal owner operator truck driver insulin use: with intermodal owner operator truck driver use Diabetes mellitus complication status: without complication Qualified Code(s): E11.9 - Type 2 diabetes mellitus without complications; Z79.4 - rn long term care (current) use of insulin Code(s): E11.9 - Type 2 diabetes mellitus without complications Status: Chronic Assessment and Plan: Hgb A1c 5.7%. Continue low-dose home Lantus. Blood sugars well controlled. (6) CHF (congestive heart failure): Qualifiers: Heart failure type: unspecified Heart failure chronicity: unspecified Qualified Code(s): I50.9 - Heart failure, unspecified Code(s): I50.9 - Heart failure, unspecified Status: Chronic Assessment and Plan: Unsure of type without records available. No prior echo available for review. Maintained on home Lasix, metolazone, isosorbide. He was euvolemic on exam. (7) Atrial fibrillation: Qualifiers: Atrial fibrillation type: unspecified Qualified Code(s): I48.91 - Unspecified atrial fibrillation Code(s): I48.91 - Unspecified atrial fibrillation Status: Chronic Assessment and Plan: Rate is controlled. Maintained on home Coreg. Aspirin was held due to hematuria but resumed prior to discharge. Does not appear to be on systemic anticoagulation. (8) CHRISTIANE (acute kidney injury): Code(s): N17.9 - Acute kidney failure, unspecified Status: Acute Assessment and Plan: Cr elevated, unsure of chronicity. Renal US showed normal kidneys without hydronephrosis. Likely pre-renal in etiology given improvement with gentle IV fluids. Creatinin
--- NOTE | 2020-11-10 13:56 | WPDUROPN2 ---
Progress Note: A&P Assessment and Plan (1) BPH loc w urin obs/LUTS: Code(s): N40.1 - Benign prostatic hyperplasia with lower urinary tract symptoms Status: Acute Assessment and Plan: Home on Finasteride and Tamsulosin but no additional abx. Subjective Subjective Date/Time Seen: 11/10/20 13:56 Continues to void well. Urine cultures: no significant growth Review of Systems Cardiovascular: Cardiovascular: Denies chest pain, Denies lightheadedness, Denies palpitations and Denies dyspnea Respiratory: Respiratory: Denies dyspnea Gastrointestinal: Gastrointestinal: Denies diarrhea, Denies nausea and Denies vomiting Genitourinary: Genitourinary: Denies hematuria and Denies dysuria Endocrine: Endocrine: Denies palpitations Exam Const: General: no acute distress Resp: Effort & Inspection: normal respiratory effort GI: Inspection: non-distended GI Palp: No abdominal tenderness and No Guarding due to palpation present (GI) Auscultation: normal bowel sounds Objective Data Vital Signs Vital Signs: Vital Signs - 24 hr 11/09/20 14:00 11/09/20 16:00 11/09/20 20:00 Temperature 97.5 F L Pulse Rate 72 75 76 Respiratory Rate 18 Blood Pressure 105/68 Pulse Oximetry 90 11/09/20 21:08 11/09/20 21:32 11/10/20 00:00 Temperature 97.8 F Pulse Rate 83 91 81 Respiratory Rate 20 Blood Pressure 124/96 H Pulse Oximetry 99 11/10/20 04:00 11/10/20 05:42 11/10/20 08:00 Temperature 98.0 F Pulse Rate 76 75 70 Respiratory Rate 20 Blood Pressure 104/66 Pulse Oximetry 94 11/10/20 09:41 11/10/20 12:00 Temperature Pulse Rate 70 74 Respiratory Rate Blood Pressure Pulse Oximetry Intake/Output Intake/Output: Intake & Output 11/07/20 11/08/20 11/09/20 11/10/20 23:59 23:59 23:59 23:59 Intake Total 760 1640 2180 610 Output Total 735 1100 1000 Balance 105 941 3481 -390 Meds/Results Medications: Active Medications Generic Name Dose Route Start Last Admin Trade Name Freq PRN Reason Stop Dose Admin Ascorbic Acid 1,000 mg 11/08/20 09:00 11/10/20 09:41 Ascorbic Acid 500 Mg Tablet PO 1,000 mg DAILY VALERIY Administration Carvedilol 3.125 mg 11/07/20 21:00 11/10/20 09:41 Carvedilol 3.125 Mg Tablet PO 3.125 mg Q12HR VALERIY Administration Cefdinir 300 mg 11/07/20 18:00 11/10/20 05:54 Cefdinir 300 Mg Capsule PO 300 mg Q12H VALERIY Administration Dextrose 12.5 gm 11/07/20 16:33 Dextrose 50% 25 Gm/50 Ml Syringe IV PUSH PRN PRN Hypoglycemia Protocol Duloxetine HCl 60 mg 11/08/20 09:00 11/10/20 09:41 Duloxetine Hcl 60 Mg Capsule.Dr PO 60 mg DAILY VALERIY Administration Ferrous Sulfate 324 mg 11/08/20 09:00 11/10/20 09:41 Ferrous Sulfate 324 Mg Tablet PO 324 mg DAILY VALERIY Administration Finasteride 5 mg 11/08/20 09:00 11/10/20 09:41 Finasteride 5 Mg Tablet PO 5 mg QAM VALERIY Administration Furosemide 80 mg 11/08/20 09:00 11/10/20 09:42 Furosemide 80 Mg Tablet PO 80 mg DAILY VALERIY Administration Gabapentin 300 mg 11/07/20 21:00 11/09/20 21:08 Gabapentin 300 Mg Capsule PO 300 mg HS VALERIY Administration Glucagon 1 mg 11/07/20 16:33 Glucagon For Inj 1 Mg Vial IM PRN PRN Hypoglycemia Protocol Glucose 15 gm 11/07/20 16:33 Glucose Oral Gel 15 Gm Of Glucse In 37.5 Gm Tube PO PRN PRN Hypoglycemia Protocol Dextrose 1,000 mls @ 100 mls/hr 11/07/20 16:33 Dextrose 5% 1,000 Ml IVPB PRN PRN Hypoglycemia Protocol Insulin Aspart 2 - 5 units 11/07/20 17:00 11/10/20 12:27 Insulin Aspart (*Bkc) 100 Units/Ml SUB-Q Not Given TIDWM ON LICENSE OF [facility] Protocol Insulin Glargine 5 units 11/08/20 09:00 11/10/20 09:42 Insulin Glargine (*Bkc) 100 Units/Ml SUB-Q 5 units DAILY VALERIY Administration Isosorbide Dinitrate 5 mg 11/07/20 17:00 11/10/20 09:41 Isosorbide Dinitrate 5 Mg Tablet PO 5 mg BID VALERIY Administ
[2020-11-13 02:01] LABS: Platelet Antibody, Direct IgG POSITIVE (NEGATIVE)
== END 2020-11-10 17:00 ==
LOC: ANHED 10:38 → ANH3MEDSUR 12:24
PROVIDERS: Internal Medicine Hematology & Oncology; Nurse Practitioner; Physician Assistant; Admitting Provider Family Medicine; Emergency Provider Emergency Medicine; PCP Internal Medicine; Visit Provider Physician Assistant
DX: N30.01 Acute cystitis with hematuria (principal); G93.40 Encephalopathy, unspecified; N17.9 Acute kidney failure, unspecified; E86.0 Dehydration; D64.9 Anemia, unspecified; E11.9 Type 2 diabetes mellitus without complications; I48.91 Unspecified atrial fibrillation; I50.9 Heart failure, unspecified; I11.0 Hypertensive heart disease with heart failure; N40.1 Benign prostatic hyperplasia with lower urinary tract symptoms; N30.00 Acute cystitis without hematuria; R74.8 Abnormal levels of other serum enzymes; R79.89 Other specified abnormal findings of blood chemistry; Z79.4 Long term (current) use of insulin; H05.20 Unspecified exophthalmos; R94.5 Abnormal results of liver function studies
CPT/HCPCS: 36415; 51701; 70450; 71045; 74176; 76705; 76775; 76857; 80048; 80053; 80074; 81001; 82140; 82550; 82607; 82728; 82746; 82948; 83036; 83540; 83550; 83605; 83735; 84436; 84439; 84443; 84480; 85014; 85018; 85025; 85027; 85055; 85610; 85730; 86023; 87086; 87088; 96360; 96361; 97161; 97165; 99285; A9270; C9803; G0378; G0379; J1815; J7040; J7120; U0003; U0005

== ENCOUNTER 2020-12-02 13:50 | Outpatient (CLI) | payer OTHER, SELFPAY ==
[2020-12-02 14:21] LABS: Hematocrit 31.1 % (42.0-52.0); Hemoglobin 9.8 g/dL (14.0-18.0); Mean Corpuscular HGB Conc 31.5 g/dl (32-36); Mean Corpuscular Hemoglobin 31.2 pg (26-34); Mean Platelet Volume 12.7 fl (7.4-10.4); Platelet Count Result 53 k/mm3 (150-375); Red Blood Count 3.14 M/mm3 (4.6-6.20); Red Cell Distribution Width 16.7 % (11.5-14.5); White Blood Count 3.7 K/mm3 (4.5-10.0)
[2020-12-02 17:19] LABS: Iron 78 ug/dL (49-181)
[2020-12-02 17:24] LABS: Anion Gap 15 mmol/L (8-16); Blood Urea Nitrogen 67 mg/dL (9-20); Calcium 8.7 mg/dL (8.4-10.2); Carbon Dioxide 23 mmol/L (22-30); Chloride 105 mmol/L (98-107); Estimated Glomerular Filt Rate 35; Glucose 147 mg/dL (75-110); Potassium 4.3 mmol/L (3.4-5.0); Sodium 143 mmol/L (137-145)
[2020-12-02 17:29] LABS: Percent Iron Saturation 20 % (20-50)
== END 2020-12-02 13:51 | disposition home or self-care (01) ==
PROVIDERS: PCP Internal Medicine; Visit Provider Internal Medicine Hematology & Oncology
DX: D64.9 Anemia, unspecified (principal)
CPT/HCPCS: 36415; 80048; 82728; 83540; 83550; 85027

== ENCOUNTER 2021-09-03 07:46 | Outpatient (CLI) | payer OTHER, SELFPAY ==
--- NOTE | ~2021-09-03 | US_ITS ---
EXAMINATION: US paracentesis abd w/image DATE: 09/03/2021 09:55 INDICATION: Ascites. TECHNIQUE: The procedure and its risks, benefits, and alternatives were discussed with the patient. P otential risks discussed included bleeding and infection. The skin was prepped and draped in sterile fashion. 1% lidocaine was used for local anesthesia. Under ultrasound guidance, a 5 Fr catheter with trochar was advanced into the ascites in the left lower quadrant. Fluid was aspirated. The catheter w as removed, and a dressing was applied. There were no immediate complications. FINDINGS: Ultrasound images demonstrate ascites and the catheter within the fluid. IMPRESSION: 1. Successful ultrasound-guided paracentesis yielding 5000 mL of renae-colored fluid. 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
[2021-09-03 08:36] LABS: Immature Platelet Fraction Pct 14.8 % (0.9-11.2); Mean Platelet Volume 13.4 fl (7.4-10.4); Platelet Count Result 58 k/mm3 (150-375)
[2021-09-03 08:45] LABS: INR 1.5; Prothrombin Time 17.5 Seconds (11.1-14.7)
[2021-09-03 10:28] LABS: Appearance Peritoneal Fluid Bloody (Clear); Color Peritoneal Fluid Brown (Colorless); Source Peritoneal Fluid Peritoneal Fluid
[2021-09-03 10:32] LABS: Lymphocytes Peritoneal Fluid 9 %; Macrophages Peritoneal Fluid 42 %; Mesothelial Cells Peritoneal Fluid 44 %; Neutrophils Peritoneal Fluid 5 % (0-25)
[2021-09-06 05:56] LABS: Total Protein Peritoneal Fluid 3.5 g/dL
[2021-09-06 15:12] LABS: Albumin Peritoneal Fluid 1.6 g/dL
== END 2021-09-03 07:47 | disposition home or self-care (01) ==
LOC: ANHIMG 07:49
PROVIDERS: Radiology Diagnostic Radiology; PCP Internal Medicine; Visit Provider Internal Medicine
DX: I50.22 Chronic systolic (congestive) heart failure (principal); L29.9 Pruritus, unspecified; F33.9 Major depressive disorder, recurrent, unspecified; I10 Essential (primary) hypertension; D64.9 Anemia, unspecified; I47.2 Ventricular tachycardia; I48.91 Unspecified atrial fibrillation; E11.42 Type 2 diabetes mellitus with diabetic polyneuropathy; M62.82 Rhabdomyolysis; N17.9 Acute kidney failure, unspecified; E83.41 Hypermagnesemia; N18.9 Chronic kidney disease, unspecified; Z95.0 Presence of cardiac pacemaker; R77.8 Other specified abnormalities of plasma proteins
CPT/HCPCS: 36415; 49083; 82042; 84157; 85049; 85055; 85610; 89051

== ENCOUNTER 2021-10-25 01:25 | Emergency (ER) | payer OTHER, SELFPAY ==
--- NOTE | ~2021-10-25 | CT_ITS ---
EXAMINATION: CT brain wo con DATE: 10/25/2021 02:12 INDICATION: Head injury. TECHNIQUE: Computed tomography (CT) of the head was performed without intravenous contrast. The mA wa s adjusted according to patient size. Iterative reconstruction technique was employed. The dose-lengt h product was 605.33 mGy-cm. COMPARISON: Head CT 11/07/2020 FINDINGS: There is a small old infarct in right cerebellum. There is no intracranial hemorrhage, acut e infarction, or abnormal intracranial mass lesion. The ventricles are normal in size. The orbits are normal. There is mucosal thickening in the paranasal sinuses. There is a small right mastoid effusio n. IMPRESSION: 1. Small old infarct in right cerebellum. Reviewed, dictated and finalized at location A.
[2021-10-25 01:24] VITALS: BP 102/74; PULSE 75; RESP 16; TEMP 36.6; O2SAT 100
--- NOTE | 2021-10-25 03:18 | ED.FALL ---
HPI - Fall General Chief Complaint: Fall Stated Complaint: fall out of bed Time Seen by Provider: 10/25/21 01:28 History of Present Illness HPI Narrative: Patient is a 61-year-old male who presents ER with reports of fall when slipping and spilled urine. Suffered skin tears to his toes. He also has abrasions to his knees bilaterally. Denies striking his head and losing consciousness however he is oriented x2 and due to this being unwitnessed the long-term was concerned. Patient has no other complaints at this time. Related Data Home Medications Medication Instructions Recorded Confirmed Lantus U-100 Insulin 5 unit SUBCUT DAILY 11/07/20 11/07/20 allopurinol 100 mg PO DAILY 11/07/20 11/07/20 ascorbic acid (vitamin C) 1 g PO DAILY 11/07/20 11/07/20 aspirin 324 mg PO DAILY 11/07/20 11/07/20 carvedilol [Coreg] 3.125 mg PO BID 11/07/20 11/07/20 duloxetine [Cymbalta] 60 mg PO DAILY 11/07/20 11/07/20 ferrous sulfate 325 mg PO DAILY 11/07/20 11/07/20 furosemide 80 mg PO DAILY 11/07/20 11/07/20 gabapentin 300 mg PO HS 11/07/20 11/07/20 isosorbide dinitrate 5 mg PO BID 11/07/20 11/07/20 magnesium gluconate 27 mg PO DAILY 11/07/20 11/07/20 metolazone 2.5 mg PO DAILY 11/07/20 11/07/20 multivitamin 1 tablet PO DAILY 11/07/20 11/07/20 potassium chloride 20 meq PO DAILY 11/07/20 11/07/20 pregabalin [Lyrica] 150 mg PO TID 11/07/20 11/07/20 ropinirole 0.5 mg PO HS 11/07/20 11/07/20 thiamine HCl (vitamin B1) 100 mg PO DAILY 11/07/20 11/07/20 Allergies Allergy/AdvReac Type Severity Reaction Status Date / Time No Known Allergies Allergy Verified 11/26/20 10:50 Review of Systems Constitutional: Constitutional: Denies chills and Denies fever(s) Cardiovascular: Cardiovascular: Denies chest pain and Denies radiating jaw, neck or arm pain Respiratory: Respiratory: Denies cough and Denies dyspnea Gastrointestinal: Gastrointestinal: Denies abdominal pain, Denies nausea and Denies vomiting Integumentary/Breasts: Comments: skin tears to the toes PMFSH Past Medical History Medical History (Updated 10/25/21 @ 03:28 by Darion Ross MD) Atrial fibrillation CHF (congestive heart failure) CKD (chronic kidney disease) stage 3, GFR 30-59 ml/min Colon cancer screening Diabetes mellitus HTN (hypertension) Pacemaker Surgical History Surgical History Surgical history unknown Family History Family History Mother Heart failure Social History Social History Social History: The patient tells me that he is single and that he only has 1 child. The patient was not aware which long-term he came from but I was able to talk to the shoe salesperson who is also the power senior attorney Misty Ortiz. The patient is listed as a full code. Again I did request information from [facility] and rehab. The patient is unemployed most likely on disability. Smoking status: Never smoker Alcohol intake: never Substance use: never Gender identity (if verbalized by the patient): Male Sexual Orientation (if Verbalized by the Patient): Straight or Heterosexual Spiritual care concerns: No Exam Narrative: GENERAL: Well-appearing, well-nourished, and in no acute distress. HEAD: Normocephalic, atraumatic. ENT: Mucous membranes moist. CHEST: Clear to auscultation. No respiratory distress. HEART: Regular rate and rhythm. Normal peripheral pulses.. EXTREMITIES: Normal range of motion. Chronic venous stasis changes lower extremities. SKIN: Warm, dry, no rash. Small skin tears to the plantar aspect of the big toes bilaterally, left with persistent bleeding. NEURO: Alert and oriented x2-3. PSYCH: Normal mood and affect. Course Course Emergency Course: CT negative. Discharge home. Vital Signs Vital signs: Vital Signs Temperature 97.8 F
[2021-10-25 04:22] VITALS: BP 100/80; PULSE 75; RESP 12; O2SAT 100
--- NOTE | 2021-10-25 05:39 | PC.NURSE ---
NOTED OOZING BLOOD FROM L FOOT. DR INFANTE TO BEDSIDE. NEW DRESSING PLACED WITH SURGICEL AROUND GREAT TOE WHERE SKIN TEAR IS. COBAN AND TELFA PAD REPLACED TO REST OF FOOT.PMS INTACT
--- NOTE | 2021-10-25 05:52 | PC.NURSE ---
[facility] here.
== END 2021-10-25 06:00 ==
PROVIDERS: Emergency Provider Emergency Medicine; PCP Internal Medicine
DX: S91.112A Laceration without foreign body of left great toe without damage to nail, initial encounter (principal); S91.111A Laceration without foreign body of right great toe without damage to nail, initial encounter; I48.91 Unspecified atrial fibrillation; I13.0 Hypertensive heart and chronic kidney disease with heart failure and stage 1 through stage 4 chronic kidney disease, or unspecified chronic kidney disease; N18.30 Chronic kidney disease, stage 3 unspecified; I50.9 Heart failure, unspecified; E11.22 Type 2 diabetes mellitus with diabetic chronic kidney disease; Z79.82 Long term (current) use of aspirin; Z79.4 Long term (current) use of insulin; Z95.0 Presence of cardiac pacemaker; W01.0XXA Fall on same level from slipping, tripping and stumbling without subsequent striking against object, initial encounter
CPT/HCPCS: 70450; 99284

== ENCOUNTER 2021-11-04 03:47 | Inpatient (IN) | payer OTHER, SELFPAY ==
[2021-11-04] VITALS (16 sets, daily range): BP systolic 90–116; BP diastolic 63–97; PULSE 70–76; RESP 14–22; TEMP 34.4–36.6; O2SAT 96–100; BMI 28.3
--- NOTE | ~2021-11-04 | XR_ITS ---
EXAMINATION: XR abdomen/kub 1V DATE: 11/11/2021 19:29 INDICATION: Vomiting. Abdominal distention. TECHNIQUE: A supine view of the abdomen on 2 radiographs was obtained. COMPARISON: Chest CT 11/08/21 FINDINGS: There are no dilated loops of bowel. There is medial displacement of bowel loops, consisten t with ascites. Pacer wires overlie the heart. IMPRESSION: 1. Ascites. 2. Nonobstructive bowel gas pattern. Reviewed, dictated and finalized at location A.
--- NOTE | ~2021-11-04 | NM_ITS ---
EXAMINATION: NM pulmonary perfusion DATE: 11/08/2021 15:36 INDICATION: Shortness of breath TECHNIQUE: 5.3 mCi Tc-99m MAA by intravenous route. Scintigraphic images of the chest were obtained. COMPARISON: Chest radiograph dated 11/16/[address] dated 11/08/2021 FINDINGS: Cardiomegaly. Photopenic defect at the left anterior upper lung corresponding to the power supply for a cardiac pacemaker. Small perfusion defects in the bilateral posterior basilar lower lobes resultin g with blunting of the bilateral posterior sulci which correspond to small bilateral pleural effusion s. No other perfusion defects identified. No other unmatched perfusion defects identified. IMPRESSION: 1. Low probability for pulmonary embolism. 2. Cardiomegaly. Reviewed, dictated and finalized at location A.
--- NOTE | ~2021-11-04 | US_ITS ---
EXAMINATION: US right upper quadrant DATE: 11/04/2021 18:07 INDICATION: Cirrhosis of the liver. TECHNIQUE: Multiple grayscale and Doppler ultrasound images of the abdomen were obtained. COMPARISON: CT abdomen and pelvis 11/07/2020 FINDINGS: The pancreas is obscured by bowel gas. The liver is normal without focal lesion. There is p ulsatile, predominantly antegrade flow in main portal vein, likely secondary to right heart failure. The gallbladder is normal in size. No gallstones. Gallbladder wall thickening is likely secondary to interstitial edema. The common duct is normal and measures 3 mm. There is a moderate volume of ascite s. IMPRESSION: 1. Moderate volume of ascites. 2. Normal liver. Reviewed, dictated and finalized at location A.
--- NOTE | ~2021-11-04 | CT_ITS ---
EXAMINATION: CT diagnostic chest wo con DATE: 11/08/2021 11:31 INDICATION: Shortness of breath TECHNIQUE: Computed tomography (CT) of the chest was performed without intravenous contrast. The dose -length product (DLP) was 853.02 mGy-cm. Automated exposure control and iterative reconstruction tech nique were employed. COMPARISON: None FINDINGS: Cardiomegaly is noted. There are small pleural effusions. There is dependent atelectasis. A few patchy airspace opacities are scattered throughout the lungs. There is no pneumothorax. A triple lead cardiac pacemaker of the left chest wall ends with leads in expected locations. There is mild t horacic spondylosis. IMPRESSION: 1. Cardiomegaly. 2. Small pleural effusions with associated dependent atelectasis. 3. Patchy bilateral airspace opacities, consistent with pneumonia. Reviewed, dictated and finalized at location A.
--- NOTE | ~2021-11-04 | US_ITS ---
EXAMINATION: US paracentesis abd w/image DATE: 11/15/2021 13:56 INDICATION: Ascites. TECHNIQUE: The procedure and its risks and benefits were discussed with the patient. Potential risks discussed included bleeding and infection. The skin was prepped and draped in sterile fashion. 1% lid ocaine was used for local anesthesia. Under ultrasound guidance, a 5 Fr catheter with trochar was adv anced into the ascites in the left lower quadrant. Fluid was aspirated into vacuum bottles. The gurpreet ter was removed, and a dressing was applied. There were no immediate complications. FINDINGS: Ultrasound images demonstrate ascites and the catheter within the fluid. IMPRESSION: 1. Successful ultrasound-guided paracentesis yielding 5000 mL of dark reddish fluid. Reviewed, dictated and finalized at location A.
--- NOTE | ~2021-11-04 | XR_ITS ---
EXAMINATION: XR chest 1V portable INDICATION: Shortness of breath TECHNIQUE: Portable AP chest at 1201 hours COMPARISON: 11/07/2020 FINDINGS: Cardiomegaly is noted. The lung volumes are low. The lungs are free of acute opacities. A t riple lead cardiac pacemaker of the left chest wall ends with leads in expected locations. IMPRESSION: 1. Cardiomegaly. Reviewed, dictated and finalized at location A. IMPRESSION: 1. Cardiomegaly.
--- NOTE | 2021-11-04 04:00 | ED.SKABFB ---
HPI - Skin/Abscess/Foreign Bdy General Chief complaint: Skin/Abscess/Foreign Body Stated complaint: BLEEDING HEEL ULCER/WOUND Time Seen by Provider: 11/04/21 04:00 Source: patient and EMS Mode of arrival: EMS Limitations: no limitations History of Present Illness HPI narrative: Patient is a 61-year-old male with a history of diabetes, chronic thrombocytopenia, anemia, congestive heart failure, presenting for evaluation of right heel wound. Pt seen at this facility previously for ground level fall, in which he presented here for evaluation of his wounds, and ultimately they were dressed and he was found to have no other acute injuries. Pt then discharged back to facility. Patient states that he was picking a scab on his right heel this evening, when it was noted to be bleeding by staff at the care facility. They were unable to stop the bleeding, despite direct pressure, applying ice, and patient was transferred here for evaluation. Patient denies any significant pain. He has history of this in the past. He does not take Coumadin, is unsure if he is on any anticoagulation. He denies other easy bruising but has history of easy bleeding. Chart review, patient takes daily aspirin. Pt also with history of potential cirrhosis, thrombocytopenia. Has seen Dr. Banuelos in the past. Related Data Home Medications Medication Instructions Recorded Confirmed ascorbic acid (vitamin C) 1 g PO DAILY 11/07/20 11/07/20 aspirin 324 mg PO DAILY 11/07/20 11/07/20 multivitamin 1 tablet PO DAILY 11/07/20 11/07/20 thiamine HCl (vitamin B1) 100 mg PO DAILY 11/07/20 11/07/20 allopurinol 10/25/21 ammonium lactate TOPICAL 10/25/21 carvedilol 10/25/21 duloxetine mg PO 10/25/21 duloxetine mg PO 10/25/21 finasteride mg 10/25/21 furosemide 10/25/21 gabapentin 10/25/21 insulin glargine [Lantus U-100 SUBCUT 10/25/21 Insulin] isosorbide dinitrate mg 10/25/21 lactulose [Enulose] 10/25/21 metolazone 10/25/21 paroxetine HCl mg PO 10/25/21 potassium chloride meq PO 10/25/21 pregabalin 10/25/21 ropinirole mg 10/25/21 tamsulosin mg PO 10/25/21 Allergies Allergy/AdvReac Type Severity Reaction Status Date / Time No Known Allergies Allergy Verified 11/04/21 04:03 Review of Systems Review of Systems: CONSTITUTIONAL: Denies fever CARDIOVASCULAR: Denies chest pain RESPIRATORY: Denies cough or dyspnea. GASTROINTESTINAL: Denies abdominal pain SKIN: Denies rash, reports bleeding right heel wound MUSCULOSKELETAL: Denies back pain NEUROLOGIC: Denies headache PMFSH Past Medical History Medical History Atrial fibrillation CHF (congestive heart failure) CKD (chronic kidney disease) stage 3, GFR 30-59 ml/min Colon cancer screening Diabetes mellitus HTN (hypertension) Pacemaker Surgical History Surgical History Surgical history unknown Family History Family History Mother Heart failure Social History Social History Social History: The patient tells me that he is single and that he only has 1 child. The patient was not aware which senior living he came from but I was able to talk to the contact finger assembler who is also the power pile driving supervisor Misty Ortiz. The patient is listed as a full code. Again I did request information from [facility] and rehab. The patient is unemployed most likely on disability. Smoking status: Never smoker Alcohol intake: never Substance use: never Gender identity (if verbalized by the patient): Male Sexual Orientation (if Verbalized by the Patient): Straight or Heterosexual Spiritual care concerns: No Exam Narrative: GENERAL: Awake, alert, conversant HEAD: Normocephalic, atraumatic. EYES: PERRLA and EOMI. ENT: Nares clear, no rhinorrhea or epistaxis. Mu
[2021-11-04 05:08] LABS: Basophils Percent Auto 0.9 % (0.2-1.2); Eosinophils Absolute Auto 0.1 K/mm3 (0-0.3); Eosinophils Percent Auto 1.5 % (0-4.4); Hematocrit 23.4 % (42.0-52.0); Hemoglobin 7.2 g/dL (14.0-18.0); Immature Granulocyte Absolute 0.02 K/mm3 (0.00-0.031); Immature Granulocyte Percent A 0.4 % (0-0.5); Immature Platelet Fraction Pct 16.3 % (0.9-11.2); Lymphocytes Absolute Auto 0.96 K/mm3 (0.9-3.2); Lymphocytes Percent Auto 20.9 % (18.3-44.2); Mean Corpuscular HGB Conc 30.8 g/dl (32-36); Mean Corpuscular Hemoglobin 31.3 pg (26-34); Mean Corpuscular Volume 101.7 fl (80-100); Mean Platelet Volume 14.1 fl (7.4-10.4); Monocytes Absolute Auto 0.5 K/mm3 (0.1-0.6); Monocytes Percent Auto 11.3 % (2.6-8.5); Nucleated Red Blood Cells Perc 0.4 % (0.0-0.2); Platelet Count Result 69 k/mm3 (150-375); Red Cell Distribution Width 19.1 % (11.5-14.5); White Blood Count 4.6 K/mm3 (4.5-10.0)
[2021-11-04 05:19] LABS: INR 1.9; Prothrombin Time 20.7 Seconds (11.1-14.7)
[2021-11-04 05:20] LABS: Partial Thromboplastin Time 46.1 SECONDS (22.3-36.8)
[2021-11-04] MEDS: FAMOTIDINE 20 MG/2 ML VIAL IV PUSH (06:49)
[2021-11-04] MEDS: TRANEXAMIC ACID 1,000 MG/10 ML AMPUL 1000 MG IV PUSH (06:56)
[2021-11-04 07:21] LABS: Anion Gap 9 mmol/L (8-16); Blood Urea Nitrogen 64 mg/dL (9-20); Calcium 7.3 mg/dL (8.4-10.2); Carbon Dioxide 25 mmol/L (22-30); Chloride 104 mmol/L (98-107); Estimated Glomerular Filt Rate 30; Glucose 93 mg/dL (65-110); Sodium 138 mmol/L (137-145)
[2021-11-04 07:40] LABS: Hematocrit 24.4 % (42.0-52.0); Hemoglobin 7.5 g/dL (14.0-18.0)
--- NOTE | 2021-11-04 08:02 | PC.NURSE ---
This patient, Clark Montes De Oca, was admitted to Intensive Care Unit-11. Patient/family oriented to hospital policies and general routines including ID bracelet, bed and alarms, visiting hours, pain management, procedures, bathroom and other care routines, personal items, smoking policy, room service/diet, and visiting hours. Information on how to activate the Rapid Response Team has been discussed. Patient/Family are encouraged to report perceived risks to care and to ask questions if they do not understand what they are told or what they should do.
[2021-11-04 08:21] LABS: SARS-CoV-2 RNA PCR Negative
--- NOTE | 2021-11-04 09:43 | PM.IMHP ---
H&P: HPI History of Present Illness Date/Time: 11/04/21 09:43 Chief Complaint: 61 years old male with past medical history of recurrent UTI hematuria thrombocytopenia CHF AFib on aspirin presented to the hospital with bleeding from the lower extremity wound was not controlled by local hemostasis associated with acute blood loss anemia also patient recently was seen in the ER for a fall and was sent back to the facility but he started having bleeding from lower extremity wound as patient was picking up on his wound surgery was consulted hemostasis achieved rectal exam was done in the ER was occult positive patient was started on Protonix drip also on IV antibiotic for possible lower extremity cellulitis Review of Systems Review of Systems: Patient is poor historian as above [facility] Past Medical History Medical History Atrial fibrillation CHF (congestive heart failure) CKD (chronic kidney disease) stage 3, GFR 30-59 ml/min Colon cancer screening Diabetes mellitus HTN (hypertension) Pacemaker Surgical History Surgical History Surgical history unknown Family History Family History Mother Heart failure Social History Social History Social History: The patient tells me that he is single and that he only has 1 child. The patient was not aware which [facility] he came from but I was able to talk to the personal lines account manager who is also the power insurance attorney Misty Ortiz. The patient is listed as a full code. Again I did request information from [facility] and rehab. The patient is unemployed most likely on disability. Smoking status: Never smoker Alcohol intake: never Substance use: never Gender identity (if verbalized by the patient): Male Sexual Orientation (if Verbalized by the Patient): Straight or Heterosexual Spiritual care concerns: No Meds Home Medications and Allergies Home Medications Medication Instructions Recorded Confirmed Type aspirin 81 mg PO DAILY 11/07/20 11/04/21 History multivitamin 1 tablet PO DAILY 11/07/20 11/04/21 History thiamine HCl (vitamin B1) 100 mg PO DAILY 11/07/20 11/04/21 History allopurinol 100 mg PO DAILY 10/25/21 11/04/21 History ammonium lactate See Rx Instructions .ROUTE .COMPLEX 10/25/21 11/04/21 History carvedilol 3.125 mg PO BID 10/25/21 11/04/21 History duloxetine 50 mg PO DAILY 10/25/21 11/04/21 History finasteride 5 mg PO DAILY 10/25/21 11/04/21 History furosemide 80 mg PO DAILY 10/25/21 11/04/21 History gabapentin 300 mg PO HS 10/25/21 11/04/21 History insulin glargine [Lantus U-100 5 unit SUBCUT HS 10/25/21 11/04/21 History Insulin] isosorbide dinitrate 5 mg PO BID 10/25/21 11/04/21 History lactulose [Enulose] 20 g PO BID 10/25/21 11/04/21 History metolazone See Rx Instructions .ROUTE .COMPLEX 10/25/21 11/04/21 History paroxetine HCl 20 mg PO DAILY 10/25/21 11/04/21 History potassium chloride 20 meq PO DAILY 10/25/21 11/04/21 History pregabalin 225 mg PO BID 10/25/21 11/04/21 History ropinirole 0.5 mg PO HS 10/25/21 11/04/21 History tamsulosin 0.4 mg PO DAILY 10/25/21 11/04/21 History ferrous sulfate [Iron (ferrous 325 mg PO BID 11/04/21 11/04/21 History sulfate)] magnesium gluconate 500 mg PO DAILY 11/04/21 11/04/21 History Allergies Allergy/AdvReac Type Severity Reaction Status Date / Time No Known Allergies Allergy Verified 11/04/21 04:03 Vital Signs Vital Signs - 24 hr 11/04/21 03:45 11/04/21 05:00 11/04/21 06:00 Temperature 97.8 F Pulse Rate 70 75 75 Respiratory Rate 16 16 16 Blood Pressure 100/82 107/78 116/84 Pulse Oximetry 99 97 96 11/04/21 07:40 11/04/21 08:02 Temperature 94 F L Pulse Rate 74 75 Respiratory Rate 16 15 Blood Pressure 113/87 101/79 Pulse Oximetry 100 97
--- NOTE | 2021-11-04 12:04 | PM.CNGS ---
Assessment and Plan Assessment and plan (1) Open wound of right heel: Code(s): S91.301A - Unspecified open wound, right foot, initial encounter Status: Acute Assessment and Plan: Right lateral foot wound that continued to bleed despite multiple attempts of holding pressure and suturing in the ER to achieve hemostasis. This is the reason for our consultation. Pressure dressing was applied and has been in place since admission. When evaluating the patient on two occasions today, the dressing has remained dry and intact. The bleeding appears to be controlled at this time with the pressure dressing. Will leave in place to avoid aggravating the bleeding again and closely monitor. If the dressing becomes saturated, then we could take this down to evaluate the wound today, otherwise we will continue to monitor and plan to evaluate the wound tomorrow. (2) Acute GI bleeding: Code(s): K92.2 - Gastrointestinal hemorrhage, unspecified Status: Acute Assessment and Plan: Anemia with a concern of GI bleed due to rectal exam being guaiac positive. GI consulted, will await their recommendations. (3) Anemia: Code(s): D64.9 - Anemia, unspecified Status: Acute Assessment and Plan: Hemoglobin 7.2 and repeat at 7.5. GI has been consulted for concern of GI bleed. Monitor labs and transfuse as needed. Right heel wound could have contributed slightly to the anemia, but currently the bleeding seems to be controlled. See plan above. (4) Thrombocytopenia: Code(s): D69.6 - Thrombocytopenia, unspecified Status: Acute Assessment and Plan: Platelets 69,000 on admission, which is not low enough to be concerned for spontaneous bleeding, but appears he is chronically low. Continue to monitor. See plan above. (5) Dehydration: Code(s): E86.0 - Dehydration Status: Acute (6) CHF (congestive heart failure): Qualifiers: Heart failure type: unspecified Heart failure chronicity: unspecified Qualified Code(s): I50.9 - Heart failure, unspecified Code(s): I50.9 - Heart failure, unspecified Status: Chronic (7) Diabetes mellitus: Qualifiers: Diabetes mellitus type: type 2 Diabetes mellitus intermediate insulin use: with intermediate use Diabetes mellitus complication status: without complication Qualified Code(s): E11.9 - Type 2 diabetes mellitus without complications; Z79.4 - computer terminal operator (current) use of insulin Code(s): E11.9 - Type 2 diabetes mellitus without complications Status: Chronic (8) Atrial fibrillation: Qualifiers: Atrial fibrillation type: unspecified Qualified Code(s): I48.91 - Unspecified atrial fibrillation Code(s): I48.91 - Unspecified atrial fibrillation Status: Chronic Assessment and Plan: In review of his medications, he does not appear to be on any oral anticoagulation. (9) CKD (chronic kidney disease) stage 3, GFR 30-59 ml/min: Code(s): N18.30 - Chronic kidney disease, stage 3 unspecified Status: Acute (10) HTN (hypertension): Qualifiers: Hypertension type: essential hypertension Qualified Code(s): I10 - Essential (primary) hypertension Code(s): I10 - Essential (primary) hypertension Status: Chronic Additional Plan I have discussed the patient's case and plan of care with Dr. Solitario. Thank you for allowing us to see the patient in consultation and we will continue to follow along with you. History of Present Illness Consult details Consult date: 11/04/21 Reason for consult: wound care (Bleeding right heel wound) Requesting physician: Blanca Brush MD Narrative: This is a 61-year-old male with a history of CHF, atrial fibrillation not on oral anticoagulation, chronic thrombocytopenia and anemia, insulin-dependent diabetes mellitus, and hypertension. He resides at [facility] re[facility], and was brought into the ER on 10/02
[2021-11-04] MEDS: SODIUM CHLORIDE 0.9% IV 250 ML 30 ML IV CONT (12:09)
[2021-11-04] MEDS: FINASTERIDE 5 MG TABLET PO (12:10)
[2021-11-04] MEDS: PHYTONADIONE 5 MG TABLET PO (12:10)
[2021-11-04] MEDS: PARoxetine 20 MG TABLET PO (12:10)
[2021-11-04] MEDS: MAGNESIUM 27 MG TABLET (500 MG MAG GLUCONATE) PO (12:10)
[2021-11-04] MEDS: allopurinoL 100 MG TABLET PO (12:10)
[2021-11-04] MEDS: DULoxetine HCL 30 MG CAPSULE.DR PO (12:11)
[2021-11-04] MEDS: DULoxetine HCL 20 MG CAPSULE.DR PO (12:11)
[2021-11-04] MEDS: TAMSULOSIN HCL 0.4 MG CAPSULE PO (12:11)
[2021-11-04] MEDS: THIAMINE HCL 100 MG TABLET PO (12:11)
[2021-11-04] MEDS: MULTIVITAMINS THERAPEUTIC TAB (*BKC) 1 TABLET PO (12:11)
[2021-11-04] MEDS: SODIUM CHLORIDE 0.9% IV 1,000 ML 50 ML IV CONT (12:15)
[2021-11-04] MEDS: PREGABALIN (*CRX) 75 MG CAPSULE 225 MG PO ×2 (12:15→18:19)
[2021-11-04 12:22] LABS: Glucose Point of Care 88 mg/dl (65-105)
--- NOTE | 2021-11-04 12:45 | PDONCCN ---
HPI - Date of Consult Date/Time: 11/04/21 12:45 Requesting Physician: Colt Eason DO Primary Care Provider: Myke Varela, - Consult Narrative Reason for consult: Thrombocytopenia and anemia Narrative: Clark Montes De Oca is a 61 year old male with history of anemia of chronic kidney disease and chronic ITP. He was last seen in the office in December of 2020. Patient also has a history of congestive heart failure and atrial fibrillation and has been on aspirin presented to the hospital with bleeding from the right lower extremity wound. Labs showed hemoglobin [place] 7[place]5 [place] [address]. Pressure dressing was applied by the surgery after initial suturing in the ER to achieve the hemostasis. He denies any further bleeding. He denies any melena hematochezia. He complain of tiredness and fatigue. Patient has received 1 unit of packed red blood cell. Review of Systems - Review of Systems All systems reviewed & are unremarkable except as noted in [facility] and [facility] Medical History: Medical History (Last Reviewed 11/04/21 @ 12:27 by MARSHALL Coreas) Atrial fibrillation CHF (congestive heart failure) CKD (chronic kidney disease) stage 3, GFR 30-59 ml/min Colon cancer screening Diabetes mellitus History of abdominal paracentesis HTN (hypertension) Pacemaker Surgical History: Surgical History (Last Reviewed 11/04/21 @ 12:27 by MARSHALL Coreas) Surgical history unknown Family History: Family History (Last Reviewed 11/04/21 @ 12:27 by MARSHALL Coreas) Mother Heart failure - Social History Social History: Social History (Last Reviewed 11/04/21 @ 12:28 by MARSHALL Coreas) Gender Identity: Gender identity (if verbalized by the patient): Male Sexual Orientation: Sexual Orientation (if Verbalized by the Patient): Straight or Heterosexual Alcohol Use: Alcohol intake: never Substance Use: Substance use: never Others: Spiritual care concerns: No Living Arrangements: Living arrangements: halfway Oppucation/Education: Occupation/Education: unemployed Smoking Status: Smoking status: Never smoker Meds Home Medications Medication Instructions Recorded Confirmed Type aspirin 81 mg PO DAILY 11/07/20 11/04/21 History multivitamin 1 tablet PO DAILY 11/07/20 11/04/21 History thiamine HCl (vitamin B1) 100 mg PO DAILY 11/07/20 11/04/21 History allopurinol 100 mg PO DAILY 10/25/21 11/04/21 History ammonium lactate See Rx Instructions .ROUTE .COMPLEX 10/25/21 11/04/21 History carvedilol 3.125 mg PO BID 10/25/21 11/04/21 History duloxetine 50 mg PO DAILY 10/25/21 11/04/21 History finasteride 5 mg PO DAILY 10/25/21 11/04/21 History furosemide 80 mg PO DAILY 10/25/21 11/04/21 History gabapentin 300 mg PO HS 10/25/21 11/04/21 History insulin glargine [Lantus U-100 5 unit SUBCUT HS 10/25/21 11/04/21 History Insulin] isosorbide dinitrate 5 mg PO BID 10/25/21 11/04/21 History lactulose [Enulose] 20 g PO BID 10/25/21 11/04/21 History metolazone See Rx Instructions .ROUTE .COMPLEX 10/25/21 11/04/21 History paroxetine HCl 20 mg PO DAILY 10/25/21 11/04/21 History potassium chloride 20 meq PO DAILY 10/25/21 11/04/21 History pregabalin 225 mg PO BID 10/25/21 11/04/21 History ropinirole 0.5 mg PO HS 10/25/21 11/04/21 History tamsulosin 0.4 mg PO DAILY 10/25/21 11/04/21 History ferrous sulfate [Iron (ferrous 325 mg PO BID 11/04/21 11/04/21 History sulfate)] magnesium gluconate 500 mg PO DAILY 11/04/21 11/04/21 History Allergies Allergy/AdvReac Type Severity Reaction Status Date / Time No Known Allergies Allergy Verified 11/04/21 04:03 Results - Labs CBC & Chem 7: 11/04/21 07:33 11/04/21 04:53 Labs: Short CBC 11/04/21 11/04/21 Range/Units 04:53 07:33 WBC 4.6 (4.5-10.0) K/mm3 Hgb 7.2 L 7.5 L (14.0-18.0) g/dL Hct 23.4 L 24.4 L (42.0-52.0) % Plt Count 69 L (150-375) k/mm3 BMP
[2021-11-04 13:06] LABS: Hematocrit 28.5 % (42.0-52.0); Hemoglobin 8.9 g/dL (14.0-18.0)
[2021-11-04 13:13] LABS: Hemoglobin A1C 5.4 % (<5.7)
[2021-11-04] MEDS: EUCERIN CREAM 120 GM JAR 1 APPLIC TOPICAL (13:40)
[2021-11-04] MEDS: EPOETIN ALFA-EPBX 20,000 UNITS/ML VIAL 20000 UNITS SUB-Q (13:41)
[2021-11-04 15:01] LABS: INR 1.8; Prothrombin Time 20.1 Seconds (11.1-14.7)
[2021-11-04 15:02] LABS: Partial Thromboplastin Time 35.6 SECONDS (22.3-36.8)
--- NOTE | 2021-11-04 16:52 | WPDGICN ---
Assessment and Plan Assessment and plan (1) Acute GI bleeding: Code(s): K92.2 - Gastrointestinal hemorrhage, unspecified Status: Acute Assessment and Plan: he has chronic anemia and noted drop h/h but could be from wound bleeding, also h/o ckd with ITP but given possible history of cirrhosis will do EGD tomorrow to assess if PHG, varices, etc he is on protonix iv npo after midnight (2) Acute on chronic anemia: Code(s): D64.9 - Anemia, unspecified Status: Acute Assessment and Plan: continue to monitor hematology on board (3) Occult blood in stools: Code(s): R19.5 - Other fecal abnormalities Status: Acute Assessment and Plan: egd tomorrow, ? perianal (4) Cirrhosis: Code(s): K74.60 - Unspecified cirrhosis of liver Status: Acute Assessment and Plan: hepatitis panel negative ? etiology, will complete work up for chronic liver disease will get labs in order to calculate meld score (5) Thrombocytopenia: Code(s): D69.6 - Thrombocytopenia, unspecified Status: Acute Assessment and Plan: itp, also possible cirrhosis (6) Open wound of right heel: Code(s): S91.301A - Unspecified open wound, right foot, initial encounter Status: Acute Assessment and Plan: no more bleeding, surgery on board (7) Elevated liver enzymes: Code(s): R74.8 - Abnormal levels of other serum enzymes Status: Acute Assessment and Plan: get labs again, also abdominal ultrasound (8) Acute on chronic renal failure: Code(s): N17.9 - Acute kidney failure, unspecified; N18.9 - Chronic kidney disease, unspecified Status: Acute Assessment and Plan: monitro renal function (9) Chronic ITP (idiopathic thrombocytopenia): Code(s): D69.3 - Immune thrombocytopenic purpura Status: Acute (10) History of abdominal paracentesis: Code(s): Z98.890 - Other specified postprocedural states Status: Inactive Assessment and Plan: he required in the past 2g na diet GI Consult Note Consult date/time: 11/04/21 16:52 Reason for consult: gib, acute on chronic anemia, FOBT + HPI: Clark Montes De Oca is a 61 year old male with history of chronic anemia (hb 9-10) with thrombocytopenia 50-60 (h/o chronic ITP seeing by hematology), history of congestive heart failure and atrial fibrillation on baby aspirin who is staying in a local retirement. I saw him last year in the office because ascites with possible liver disease, also had elevated bili ~ 2.5 and he has history of paracentesis in the past. My plan was to do endoscopies as outpatient. This time he was sent here after developed a skin tear on the lateral aspect of his right foot with ongoing significant bleeding, Emergency room doctor had tried numerous efforts at stopping this bleeding including suturing the skin tear, finally wound stopped bleeding after dressed with gauze and Coban. Platelets are 69,000, PT 20.7, INR 1.9, and PTT 46.1, hb7.5, creat 2.6 (baseline 2). Patient denies overt gib but ER physician performed rectal exam and was positive for occult blood, started on iv protonix. He is stable. Review of Systems Constitutional: Constitutional: Denies chills Eyes: Eyes: Reports no additional eye complaints ENT: Reports Normal hearing present Cardiovascular: Cardiovascular: Denies chest pain Respiratory: Respiratory: Denies dyspnea Gastrointestinal: Gastrointestinal: Denies abdominal pain Genitourinary: Genitourinary: Denies dysuria Musculoskeletal: Musculoskeletal: Denies neck pain Integumentary/Breasts: Skin/Breast: Reports wounds Neurologic: Denies headache(s) Psychiatric: Psychiatric: Denies behavioral changes [facility] Past Medical History Medical History (Updated 11/04/21 @ 17:03 by Davie Santos MD) Acute on chronic anemia Acute on chronic renal failure Atrial fibrillation CHF (congestive heart failure) Chronic
[2021-11-04 18:05] LABS: Glucose Point of Care 102 mg/dl (65-105)
[2021-11-04] MEDS: LACTULOSE 20 GM/30 ML UDC PO (18:19)
[2021-11-04 18:54] LABS: Iron 165 ug/dL (49-181)
[2021-11-04 19:05] LABS: Percent Iron Saturation 57 % (20-50)
[2021-11-04 20:49] LABS: Glucose Point of Care 131 mg/dl (65-105)
[2021-11-04] MEDS: INSULIN GLARGINE (*BKC) 100 UNITS/ML SUB-Q (20:49)
[2021-11-04] MEDS: GABAPENTIN 300 MG CAPSULE PO (20:49)
[2021-11-04] MEDS: rOPINIRole HCL 0.5 MG TABLET PO (20:49)
[2021-11-04 22:08] LABS: Folic Acid 14.8 ng/mL (2.76->20)
[2021-11-05] VITALS (19 sets, daily range): BP systolic 86–121; BP diastolic 53–88; PULSE 69–86; RESP 12–20; TEMP 35.7–36.5; O2SAT 90–100
[2021-11-05 04:48] LABS: Basophils Percent Auto 0.8 % (0.2-1.2); Eosinophils Absolute Auto 0.1 K/mm3 (0-0.3); Eosinophils Percent Auto 1.4 % (0-4.4); Hematocrit 26.1 % (42.0-52.0); Hemoglobin 8.3 g/dL (14.0-18.0); Immature Granulocyte Absolute 0.01 K/mm3 (0.00-0.031); Immature Granulocyte Percent A 0.2 % (0-0.5); Immature Platelet Fraction Pct 15.8 % (0.9-11.2); Lymphocytes Absolute Auto 0.95 K/mm3 (0.9-3.2); Lymphocytes Percent Auto 18.7 % (18.3-44.2); Mean Corpuscular HGB Conc 31.8 g/dl (32-36); Mean Corpuscular Hemoglobin 31.7 pg (26-34); Mean Corpuscular Volume 99.6 fl (80-100); Mean Platelet Volume 13.9 fl (7.4-10.4); Monocytes Absolute Auto 0.5 K/mm3 (0.1-0.6); Monocytes Percent Auto 9.3 % (2.6-8.5); Neutrophils Absolute Auto 3.5 K/mm3 (1.3-6.7); Neutrophils Percent Auto 69.6 % (45.5-73.1); Platelet Count Result 75 k/mm3 (150-375); Red Blood Count 2.62 M/mm3 (4.6-6.20); Red Cell Distribution Width 18.9 % (11.5-14.5); White Blood Count 5.1 K/mm3 (4.5-10.0)
[2021-11-05 04:58] LABS: Alanine Aminotransferase 15 U/L (4-50); Albumin Level 2.9 g/dL (3.5-5.1); Alkaline Phosphatase 175 U/L (38-126); Anion Gap 10 mmol/L (8-16); Aspartate Amino Transferase 29 U/L (17-59); Bilirubin,Total 1.6 mg/dL (0.2-1.3); Blood Urea Nitrogen 59 mg/dL (9-20); Calcium 7.4 mg/dL (8.4-10.2); Carbon Dioxide 24 mmol/L (22-30); Chloride 104 mmol/L (98-107); Estimated CRCL calculation 31 ml/min; Estimated Glomerular Filt Rate 30; Glucose 77 mg/dL (65-110); Potassium 4.6 mmol/L (3.4-5.0); Sodium 138 mmol/L (137-145)
[2021-11-05 05:13] LABS: Magnesium 2.6 mg/dL (1.6-2.3)
[2021-11-05 08:26] LABS: Glucose Point of Care 58 mg/dl (65-105)
[2021-11-05] MEDS: THIAMINE HCL 100 MG TABLET PO (08:33)
[2021-11-05] MEDS: TAMSULOSIN HCL 0.4 MG CAPSULE PO (08:33)
[2021-11-05] MEDS: PARoxetine 20 MG TABLET PO (08:34)
[2021-11-05] MEDS: LACTULOSE 20 GM/30 ML UDC PO ×2 (08:34→18:26)
[2021-11-05] MEDS: DULoxetine HCL 20 MG CAPSULE.DR PO (08:34)
[2021-11-05] MEDS: MAGNESIUM 27 MG TABLET (500 MG MAG GLUCONATE) PO (08:34)
[2021-11-05] MEDS: metOLazone 2.5 MG TABLET PO (08:34)
[2021-11-05] MEDS: MULTIVITAMINS THERAPEUTIC TAB (*BKC) 1 TABLET PO (08:34)
[2021-11-05] MEDS: carvediloL 3.125 MG TABLET PO (08:35)
[2021-11-05] MEDS: FERROUS SULFATE 324 MG TABLET PO ×2 (08:35→18:25)
[2021-11-05] MEDS: allopurinoL 100 MG TABLET PO (08:35)
[2021-11-05] MEDS: DULoxetine HCL 30 MG CAPSULE.DR PO (08:35)
[2021-11-05] MEDS: ISOSORBIDE DINITRATE 5 MG TABLET PO (08:36)
[2021-11-05] MEDS: FINASTERIDE 5 MG TABLET PO (08:36)
[2021-11-05] MEDS: PREGABALIN (*CRX) 75 MG CAPSULE 225 MG PO ×2 (08:37→18:25)
[2021-11-05] MEDS: PANTOPRAZOLE SODIUM IV 40 MG VIAL IV PUSH ×2 (08:37→21:53)
[2021-11-05 09:05] LABS: Glucose Point of Care 56 mg/dl (65-105)
[2021-11-05] MEDS: GLUCOSE ORAL GEL 15 GM OF GLUCSE IN 37.5 GM TUBE PO (09:08)
[2021-11-05 09:28] LABS: Glucose Point of Care 66 mg/dl (65-105)
[2021-11-05] MEDS: DEXTROSE 50% 25 GM/50 ML SYRINGE IV PUSH (09:30)
[2021-11-05 09:52] LABS: Glucose Point of Care 154 mg/dl (65-105)
[2021-11-05 09:52] LABS: Hematocrit 24.6 % (42.0-52.0); Hemoglobin 7.7 g/dL (14.0-18.0)
--- NOTE | 2021-11-05 10:20 | PC.NURSE ---
This patient, Clark Montes De Oca, was transferred to [facility] on 11/05/21 at 1020. Personal belongings sent with patient. Report given to Fern WOODS. Appropriate documentation sent with patient.
[2021-11-05] MEDS: EUCERIN CREAM 120 GM JAR 1 APPLIC TOPICAL (10:37)
[2021-11-05] MEDS: SODIUM CHLORIDE 0.9% IV 1,000 ML 50 ML IV CONT (10:37)
[2021-11-05] MEDS: PHYTONADIONE ADULT INJ 10 MG in DEXTROSE 5% IN WATER 50 ML 100 MG IVPB (10:37)
[2021-11-05 12:27] LABS: Glucose Point of Care 120 mg/dl (65-105)
[2021-11-05 14:25] LABS: Glucose Point of Care 105 mg/dl (65-105)
[2021-11-05] MEDS: LACTATED RINGERS 1,000 ML 150 ML IV CONT (14:32)
--- NOTE | 2021-11-05 14:57 | PM.IMPN ---
Progress Note: A&P Assessment and Plan (1) Open wound of right heel: Code(s): S91.301A - Unspecified open wound, right foot, initial encounter Status: Acute Assessment and Plan: Surgery is following the patient, no more bleeding noted, hemostasis was achieved -continue antibiotics for possible cellulitis (2) Acute GI bleeding: Code(s): K92.2 - Gastrointestinal hemorrhage, unspecified Status: Acute Assessment and Plan: Patient has a history of chronic anemia, noted the drop in hemoglobin. Could be from wound bleeding, patient also has a history of ITP. Stool for occult blood was positive, possible history of cirrhosis. -appreciate GI evaluation recommendation, EGD today (3) Anemia: Code(s): D64.9 - Anemia, unspecified Status: Acute Assessment and Plan: Continue to monitor H&H this could be related from bleeding from the heel,, possible GI bleed as history possible cirrhosis -Hematology-Oncology following the patient, patient started on Procrit per Heme-Onc -GI following the patient -EGD today (4) CKD (chronic kidney disease) stage 3, GFR 30-59 ml/min: Code(s): N18.30 - Chronic kidney disease, stage 3 unspecified Status: Acute Assessment and Plan: Creatinine has been stable, urine output, will continue to monitor (5) Diabetes mellitus: Qualifiers: Diabetes mellitus type: type 2 Diabetes mellitus prison insulin use: with prison use Diabetes mellitus complication status: without complication Qualified Code(s): E11.9 - Type 2 diabetes mellitus without complications; Z79.4 - predatory animal exterminator (current) use of insulin Code(s): E11.9 - Type 2 diabetes mellitus without complications Status: Chronic Assessment and Plan: Continue sliding scale insulin, patient was hypoglycemic is he received Lantus last night and was NPO , glucose gel and D50. (6) Atrial fibrillation: Qualifiers: Atrial fibrillation type: unspecified Qualified Code(s): I48.91 - Unspecified atrial fibrillation Code(s): I48.91 - Unspecified atrial fibrillation Status: Chronic Assessment and Plan: Patient has a pacemaker in place, will hold aspirin due to possible GI bleed (7) CHF (congestive heart failure): Qualifiers: Heart failure type: unspecified Heart failure chronicity: unspecified Qualified Code(s): I50.9 - Heart failure, unspecified Code(s): I50.9 - Heart failure, unspecified Status: Chronic Assessment and Plan: Likely diastolic dysfunction, avoid fluid overload Additional Plan DVT prophylaxis: SCDs, no chemoprophylaxis due to anemia Subjective Date/time seen: 11/05/21 14:57 Interval history: Anemia, bleeding right heel wound 11/05/2021: Patient seen and examined the ICU, patient is awake, alert, hemodynamically stable, denies any chest pain abdominal pain, nausea vomiting at this time. There is no bleeding from the right heel wound. EGD today Review of Systems Review of Systems: All systems reviewed & are unremarkable except as noted in HPI and below Exam Narrative: General: Patient is lying comfortably in bed in no acute distress HEENT: Dry oral mucosa, pupils equal and reactive Neck: Supple, no lymphadenopathy Respiratory: Clear to auscultation anterior Cardiac: Regular rate and rhythm, S1-S2 is normal Abdomen: distended, soft, no tenderness, dullness to percussion, distant bowel sounds Extremities: Bilateral lower extremity edema Neuro: Patient is awake, alert, follows simple commands in all extremities Skin: Skin dryness with scales all over the body, patient states that he has some skin disease since Psych: Anxious Objective Data Vital Signs Vital Signs: Vital Signs - 24 hr 11/04/21 16:00 11/04/21 18:00 11/04/21 18:08 Temperature 96.0 F L Pulse Rate 75 75 75 Respiratory Rate 16 Blood Pressure 110/84 Pulse Oximetry 100 11/04/21 20:00 05
--- NOTE | 2021-11-05 15:17 | WPDANESEPPF ---
Anes - Initial Pre Proc Eval Procedure: Operation Date: 11/05/21 17:15 Proposed Procedures p Esophagogastroduodenoscopy - Davie Santos MD Date/Time: 11/05/21 15:17 Surgeon: Colt Eason DO Pre Op Diagnosis: Anemia, GI Bleed, Foot Wound Patient Data Age: 61 Gender: M Height: 1.85 m Weight: 102.4 kg Last Vital Signs Temp 36.2 C L 11/05/21 14:27 Pulse 75 11/05/21 14:27 Resp 15 11/05/21 14:27 BP 90/70 L 11/05/21 14:27 Pulse Ox 97 11/05/21 14:41 Allergies Allergy/AdvReac Type Severity Reaction Status Date / Time No Known Allergies Allergy Verified 11/05/21 14:23 Home Medications Medication Instructions Recorded Confirmed Type aspirin 81 mg PO DAILY 11/07/20 11/04/21 History multivitamin 1 tablet PO DAILY 11/07/20 11/04/21 History thiamine HCl (vitamin B1) 100 mg PO DAILY 11/07/20 11/04/21 History allopurinol 100 mg PO DAILY 10/25/21 11/04/21 History ammonium lactate See Rx Instructions .ROUTE .COMPLEX 10/25/21 11/04/21 History carvedilol 3.125 mg PO BID 10/25/21 11/04/21 History duloxetine 50 mg PO DAILY 10/25/21 11/04/21 History finasteride 5 mg PO DAILY 10/25/21 11/04/21 History furosemide 80 mg PO DAILY 10/25/21 11/04/21 History gabapentin 300 mg PO HS 10/25/21 11/04/21 History insulin glargine [Lantus U-100 5 unit SUBCUT HS 10/25/21 11/04/21 History Insulin] isosorbide dinitrate 5 mg PO BID 10/25/21 11/04/21 History lactulose [Enulose] 20 g PO BID 10/25/21 11/04/21 History metolazone See Rx Instructions .ROUTE .COMPLEX 10/25/21 11/04/21 History paroxetine HCl 20 mg PO DAILY 10/25/21 11/04/21 History potassium chloride 20 meq PO DAILY 10/25/21 11/04/21 History pregabalin 225 mg PO BID 10/25/21 11/04/21 History ropinirole 0.5 mg PO HS 10/25/21 11/04/21 History tamsulosin 0.4 mg PO DAILY 10/25/21 11/04/21 History ferrous sulfate [Iron (ferrous 325 mg PO BID 11/04/21 11/04/21 History sulfate)] magnesium gluconate 500 mg PO DAILY 11/04/21 11/04/21 History Laboratory Tests 11/04/21 11/04/21 11/04/21 04:53 16:14 18:03 WBC RBC Hgb Hct MCV MCH MCHC RDW Plt Count MPV Immature Gran % (Auto) Neut % (Auto) Lymph % (Auto) [place] % (Auto) Eos % (Auto) Baso % (Auto) Lymph # (Auto) [place] # (Auto) Eos # (Auto) Baso # (Auto) Abs Immat Gran (auto) Absolute Neuts (auto) Absolute Nucleated RBC Nucleated RBC % % Immature Plt Fraction Sodium Potassium Chloride Carbon Dioxide Anion Gap BUN Creatinine Estim Creat Clear Calc Estimated GFR Glucose POC Capillary Glucose 102 mg/dl mg/dl (65-105) Calcium Magnesium Iron 165 ug/dL ug/dL (49-181) TIBC 289 ug/dL ug/dL (265-497) % Saturation 57 % H % (20-50) Ferritin 464.00 ng/mL H ng/mL (11.1-264) Total Bilirubin AST ALT Alkaline Phosphatase Total Protein Albumin Alpha-1-AT Phenotype Ceruloplasmin Vitamin B12 932.0 pg/mL H pg/mL (239-931) Folate 14.8 ng/mL ng/mL (2.76->20) DYLAN Screen Mitochondria M2 IgG Ab 11/04/21 11/05/21 11/05/21 20:39 04:17 04:24 WBC RBC Hgb Hct MCV MCH MCHC RDW Plt Count MPV Immature Gran % (Auto) Neut % (Auto) Lymph % (Auto) [place] % (Auto) Eos % (Auto) Baso % (Auto)
--- NOTE | 2021-11-05 15:26 | PM.PNGS ---
Progress Note: A&P Assessment and Plan (1) Skin tear of right lower leg without complication: Qualifiers: Encounter type: subsequent encounter Qualified Code(s): S81.811D - Laceration without foreign body, right lower leg, subsequent encounter Code(s): S81.811A - Laceration without foreign body, right lower leg, initial encounter Status: Acute Assessment and Plan: was bleeding profusely in the emergency room early yesterday morning. No sign of bleeding whatsoever. Emergency room physician reported she had sutured the wound but I did not see any sutures on my review today. Wound does seem to be healing. Redressed with Xeroform, gauze, Paresh wrap. Recheck again on Monday. Daily dressing changes until then. Can be discharged from surgical standpoint. Subjective Subjective Date/Time Seen: 11/05/21 15:26 Patient reports: no new complaints Interval history: Patient seen at this time to check right lateral foot skin tear that was bleeding profusely in the emergency room on admission. Dressing has been intact all day yesterday and until this point today. Exam Extrem: Right lower extremity: foot ( dressing removed. Skin tear seems to be healing. No sutures evident. ) Details: other ( No bleeding whatsoever.) Objective Data Vital Signs Vital Signs: Vital Signs - 24 hr 11/04/21 16:00 11/04/21 18:00 11/04/21 18:08 Temperature 35.6 C L Pulse Rate 75 75 75 Respiratory Rate 16 Blood Pressure 110/84 Pulse Oximetry 100 11/04/21 20:00 11/04/21 22:00 11/05/21 00:00 Temperature 36.3 C L 36.5 C Pulse Rate 76 75 75 Respiratory Rate 14 12 Blood Pressure 115/97 H 91/66 L Pulse Oximetry 99 99 11/05/21 02:00 11/05/21 04:00 11/05/21 06:00 Temperature 36.3 C L Pulse Rate 76 75 75 Respiratory Rate 15 Blood Pressure 97/74 L Pulse Oximetry 100 11/05/21 08:00 11/05/21 08:02 11/05/21 08:35 Temperature 35.7 C L Pulse Rate 75 81 75 Respiratory Rate 17 Blood Pressure 110/86 Pulse Oximetry 100 11/05/21 11:14 11/05/21 12:00 11/05/21 14:00 Temperature 36.3 C L Pulse Rate 75 75 76 Respiratory Rate 20 Blood Pressure 110/69 Pulse Oximetry 100 11/05/21 14:27 11/05/21 14:41 Temperature 36.2 C L Pulse Rate 75 Respiratory Rate 15 Blood Pressure 90/70 L Pulse Oximetry 95 97 Intake/Output Intake/Output: Intake & Output 11/02/21 11/03/21 11/04/21 11/05/21 23:59 23:59 23:59 23:59 Intake Total 1074 1341 Output Total 375 Balance 699 1341 Meds/Results Medications: Active Medications Generic Name Dose Route Start Last Admin Trade Name Freq PRN Reason Stop Dose Admin Allopurinol 100 mg 11/04/21 09:50 11/05/21 08:35 Allopurinol 100 Mg Tablet PO 100 mg DAILY VALERIY Administration Bisacodyl 5 mg 11/04/21 09:40 Bisacodyl 5 Mg Tablet Ec PO DAILY PRN Constipation Carvedilol 3.125 mg 11/04/21 17:00 11/05/21 08:35 Carvedilol 3.125 Mg Tablet PO 3.125 mg BID VALERIY Administration Dextrose 12.5 gm 11/04/21 09:39 11/05/21 09:30 Dextrose 50% 25 Gm/50 Ml Syringe IV PUSH 12.5 gm PRN PRN Administration Hypoglycemia Protocol Duloxetine HCl 20 mg 11/04/21 09:55 11/05/21 08:34 Duloxetine Hcl 20 Mg Capsule.Dr PO 20 mg DAILY VALERIY Administration Duloxetine HCl 30 mg 11/04/21 10:00 11/05/21 08:35 Duloxetine Hcl 30 Mg Capsule.Dr PO 30 mg DAILY VALERIY Administration Ferrous Sulfate 324 mg 11/04/21 17:00 11/05/21 08:35 Ferrous Sulfate 324 Mg Tablet PO 324 mg BID VALERIY Administration Finasteride 5 mg 11/04/21 09:50 11/05/21 08:36 Finasteride 5 Mg Tablet PO 5 mg DAILY VALERIY Administration Gabapentin 300 mg 11/04/21 21:00 11/04/21 20:49 Gabapentin 300 Mg Capsule PO 300 mg HS VALERIY Administration Glucagon 1 mg 11/04/21 09:39 Glucagon For Inj 1 Mg Vial IM PRN PRN Hypoglycemia Protocol Glucose 15 gm 11/04/21 09:39 11/05/21 09:
[2021-11-05 16:32] LABS: Glucose Point of Care 80 mg/dl (65-105)
[2021-11-05 17:13] LABS: Glucose Point of Care 79 mg/dl (65-105)
[2021-11-05 20:39] LABS: Glucose Point of Care 86 mg/dl (65-105)
[2021-11-05] MEDS: GABAPENTIN 300 MG CAPSULE PO (21:53)
[2021-11-05] MEDS: rOPINIRole HCL 0.5 MG TABLET PO (21:53)
[2021-11-05] MEDS: INSULIN GLARGINE (*BKC) 100 UNITS/ML SUB-Q (21:54)
[2021-11-06] VITALS (15 sets, daily range): BP systolic 94–133; BP diastolic 49–91; PULSE 75–84; RESP 12–24; TEMP 35.9–36.5; O2SAT 95–100
[2021-11-06 05:29] LABS: Basophils Absolute Auto 0.1 K/mm3 (0.0-0.1); Eosinophils Absolute Auto 0.1 K/mm3 (0-0.3); Eosinophils Percent Auto 1.6 % (0-4.4); Hematocrit 29.2 % (42.0-52.0); Hemoglobin 8.9 g/dL (14.0-18.0); Immature Granulocyte Absolute 0.02 K/mm3 (0.00-0.031); Immature Granulocyte Percent A 0.4 % (0-0.5); Immature Platelet Fraction Pct 15.2 % (0.9-11.2); Lymphocytes Absolute Auto 1.06 K/mm3 (0.9-3.2); Lymphocytes Percent Auto 20.9 % (18.3-44.2); Mean Corpuscular HGB Conc 30.5 g/dl (32-36); Mean Corpuscular Hemoglobin 31.2 pg (26-34); Mean Corpuscular Volume 102.5 fl (80-100); Monocytes Absolute Auto 0.7 K/mm3 (0.1-0.6); Monocytes Percent Auto 12.8 % (2.6-8.5); Neutrophils Absolute Auto 3.2 K/mm3 (1.3-6.7); Neutrophils Percent Auto 63.3 % (45.5-73.1); Nucleated Red Blood Cells Perc 0.6 % (0.0-0.2); Platelet Count Result 75 k/mm3 (150-375); Red Blood Count 2.85 M/mm3 (4.6-6.20); Red Cell Distribution Width 18.6 % (11.5-14.5); White Blood Count 5.1 K/mm3 (4.5-10.0)
[2021-11-06 05:41] LABS: Anion Gap 9 mmol/L (8-16); Carbon Dioxide 22 mmol/L (22-30); Chloride 106 mmol/L (98-107); Potassium 5.2 mmol/L (3.4-5.0); Sodium 137 mmol/L (137-145)
[2021-11-06 05:42] LABS: Alanine Aminotransferase 16 U/L (4-50); Albumin Level 2.8 g/dL (3.5-5.1); Alkaline Phosphatase 157 U/L (38-126); Aspartate Amino Transferase 36 U/L (17-59); Bilirubin,Total 1.6 mg/dL (0.2-1.3); Blood Urea Nitrogen 58 mg/dL (9-20); Calcium 7.3 mg/dL (8.4-10.2); Estimated CRCL calculation 39 ml/min; Estimated Glomerular Filt Rate 35; Glucose 64 mg/dL (65-110)
[2021-11-06 07:52] LABS: Glucose Point of Care 68 mg/dl (65-105)
[2021-11-06] MEDS: PARoxetine 20 MG TABLET PO (08:56)
[2021-11-06] MEDS: TAMSULOSIN HCL 0.4 MG CAPSULE PO (08:56)
[2021-11-06] MEDS: DULoxetine HCL 30 MG CAPSULE.DR PO (08:56)
[2021-11-06] MEDS: MAGNESIUM 27 MG TABLET (500 MG MAG GLUCONATE) PO (08:56)
[2021-11-06] MEDS: THIAMINE HCL 100 MG TABLET PO (08:56)
[2021-11-06] MEDS: PREGABALIN (*CRX) 75 MG CAPSULE 225 MG PO ×2 (08:57→18:12)
[2021-11-06] MEDS: MULTIVITAMINS THERAPEUTIC TAB (*BKC) 1 TABLET PO (08:57)
[2021-11-06] MEDS: DULoxetine HCL 20 MG CAPSULE.DR PO (08:58)
[2021-11-06] MEDS: ISOSORBIDE DINITRATE 5 MG TABLET PO ×2 (08:58→18:11)
[2021-11-06] MEDS: allopurinoL 100 MG TABLET PO (08:58)
[2021-11-06] MEDS: FINASTERIDE 5 MG TABLET PO (08:59)
[2021-11-06] MEDS: FERROUS SULFATE 324 MG TABLET PO ×2 (09:00→18:10)
[2021-11-06] MEDS: LACTULOSE 20 GM/30 ML UDC PO ×2 (09:00→18:11)
[2021-11-06] MEDS: carvediloL 3.125 MG TABLET PO ×2 (09:00→18:09)
[2021-11-06] MEDS: PANTOPRAZOLE SODIUM IV 40 MG VIAL IV PUSH ×2 (09:01→21:33)
--- NOTE | 2021-11-06 09:46 | WPDANESPN ---
Anes - Prog Note Post-Op Date/Time: 11/06/21 09:46 Cardiovascular status: normal Respiratory status: normal Airway patency: baseline Mental status: baseline Post-Op hydration status: normal Vital Signs: Last Vital Signs Temp 96.7 F L 11/06/21 08:00 Pulse 75 11/06/21 09:00 Resp 12 11/06/21 08:00 BP 109/49 L 11/06/21 08:00 Pulse Ox 100 11/06/21 08:00 Pain Score (VAS): 10 I/O: Intake & Output 11/05/21 11/06/21 11/06/21 23:59 07:59 15:59 Intake Total 620 50 Output Total 200 250 Balance 420 -200 Laboratory Tests 11/06/21 05:16 11/06/21 05:16 11/05/21 11/05/21 11/05/21 09:17 09:50 12:14 WBC RBC Hgb 7.7 L Hct 24.6 L MCV MCH MCHC RDW Plt Count MPV Immature Gran % (Auto) Neut % (Auto) Lymph % (Auto) [place] % (Auto) Eos % (Auto) Baso % (Auto) Lymph # (Auto) [place] # (Auto) Eos # (Auto) Baso # (Auto) Abs Immat Gran (auto) Absolute Neuts (auto) Absolute Nucleated RBC Nucleated RBC % % Immature Plt Fraction Puncture Site ABG pH ABG pCO2 ABG pO2 ABG PO2/FiO2 Ratio ABG HCO3 ABG O2 Saturation ABG O2 Content ABG Base Excess A-a Gradient Oxyhemoglobin Carboxyhemoglobin Methemoglobin Reduced Hemoglobin Total Hemoglobin O2 Delivery Device O2 Liters/Min Sodium Potassium Chloride Carbon Dioxide Anion Gap BUN Creatinine Estim Creat Clear Calc Estimated GFR Glucose POC Capillary Glucose 154 H 120 H Calcium Total Bilirubin AST ALT Alkaline Phosphatase Total Protein Albumin 11/05/21 11/05/21 11/05/21 14:23 16:30 17:07 WBC RBC Hgb Hct MCV MCH MCHC RDW Plt Count MPV Immature Gran % (Auto) Neut % (Auto) Lymph % (Auto) [place] % (Auto) Eos % (Auto) Baso % (Auto) Lymph # (Auto) [place] # (Auto) Eos # (Auto) Baso # (Auto) Abs Immat Gran (auto) Absolute Neuts (auto) Absolute Nucleated RBC Nucleated RBC % % Immature Plt Fraction Puncture Site ABG pH ABG pCO2 ABG pO2 ABG PO2/FiO2 Ratio ABG HCO3 ABG O2 Saturation ABG O2 Content ABG Base Excess A-a Gradient Oxyhemoglobin Carboxyhemoglobin Methemoglobin Reduced Hemoglobin Total Hemoglobin O2 Delivery Device O2 Liters/Min Sodium Potassium Chloride Carbon Dioxide Anion Gap BUN Creatinine Estim Creat Clear Calc Estimated GFR Glucose POC Capillary Glucose 105 80 79 Calcium Total Bilirubin AST ALT Alkaline Phosphatase Total Protein Albumin 11/05/21 11/06/21 11/06/21 19:42 04:59 05:16 WBC 5.1 RBC 2.85 L Hgb 8.9 L Hct 29.2 L MCV 102.5 H MCH 31.2 MCHC 30.5 L RDW 18.6 H Plt Count 75 L MPV 14.0 H Immature Gran % (Auto) 0.4 Neut % (Auto) 63.3 Lymph % (Auto) 20.9 [place] % (Auto) 12.8 H Eos % (Auto) 1.6 Baso % (Auto) 1.0 Lymph # (Auto) 1.06 [place] # (Auto) 0.7 H Eos # (Auto) 0.1 Baso # (Auto) 0.1 Abs Immat Gran (auto) 0.02 Absolute Neuts (auto) 3.2 Absolute Nucleated RBC 0.0 Nucleated RBC % 0.6 H % Immature Plt Fraction 15.2 H Puncture Site Pending ABG pH Pending ABG pCO2 Pending ABG pO2 Pending ABG PO2/FiO2 Ratio Pending ABG HCO3 Pending ABG O2 Saturation Pending ABG O2 Content Pending ABG Base Excess Pending A-a Gradient Pending Oxyhemoglobin Pending Carboxyhemoglobin Pending Methemoglobin Pending Reduced Hemoglobin Pending Total Hemoglobin Pending O2 Delivery Device Pending O2 Liters/Min Pending Sodium Potassium Chloride Carbon Dioxide Anion Gap BUN Creatinine Estim Creat Clear Calc Estimated GFR Glucose POC Capillary Glucose 86 Calcium Total Bilirubin AST
--- NOTE | 2021-11-06 11:13 | PM.IMPN ---
Progress Note: A&P Assessment and Plan (1) Open wound of right heel: Code(s): S91.301A - Unspecified open wound, right foot, initial encounter Status: Acute Assessment and Plan: Surgery consult probably associated with acute blood loss anemia hemostasis achieved associated with cellulitis continue IV antibiotics (2) Acute GI bleeding: Code(s): K92.2 - Gastrointestinal hemorrhage, unspecified Status: Acute Assessment and Plan: Positive occult blood GI consult Monitor H&H Protonix Status post EGD on 11/05/2021 showed esophageal ring moderate to severe gastritis continue PPI (3) Anemia: Code(s): D64.9 - Anemia, unspecified Status: Acute Assessment and Plan: Multifactorial most likely acute worsening of chronic anemia associated with acute blood loss anemia multifactorial secondary to bleeding from lower extremity ulcer and probable GI bleed secondary to moderate to severe gastritis management as above (4) CKD (chronic kidney disease) stage 3, GFR 30-59 ml/min: Code(s): N18.30 - Chronic kidney disease, stage 3 unspecified Status: Acute Assessment and Plan: Stable avoid nephrotoxic medication (5) HTN (hypertension): Qualifiers: Hypertension type: essential hypertension Qualified Code(s): I10 - Essential (primary) hypertension Code(s): I10 - Essential (primary) hypertension Status: Chronic Assessment and Plan: Blood pressure on the lower side monitor closely (6) Diabetes mellitus: Qualifiers: Diabetes mellitus type: type 2 Diabetes mellitus detention insulin use: with detention use Diabetes mellitus complication status: without complication Qualified Code(s): E11.9 - Type 2 diabetes mellitus without complications; Z79.4 - buttermaker helper (current) use of insulin Code(s): E11.9 - Type 2 diabetes mellitus without complications Status: Chronic Assessment and Plan: Insulin sliding scale Lantus (7) CHF (congestive heart failure): Qualifiers: Heart failure type: unspecified Heart failure chronicity: unspecified Qualified Code(s): I50.9 - Heart failure, unspecified Code(s): I50.9 - Heart failure, unspecified Status: Chronic Assessment and Plan: Most likely acute on top of chronic diastolic CHF exacerbation developed during hospitalization associated with acute on top of chronic hypoxemic respiratory failure continue oxygen Patient short of breath today Will get chest x-ray DC IV fluid Started IV Lasix (8) Atrial fibrillation: Qualifiers: Atrial fibrillation type: unspecified Qualified Code(s): I48.91 - Unspecified atrial fibrillation Code(s): I48.91 - Unspecified atrial fibrillation Status: Chronic Assessment and Plan: Status post pacemaker placement patient on aspirin hold aspirin due to possible GI bleed (9) Dehydration: Code(s): E86.0 - Dehydration Status: Acute Assessment and Plan: Resolved DC IV fluid Additional Plan Repeat prophylaxis SCD Subjective Date/time seen: 11/06/21 11:13 Interval history: Patient seen and examined Patient currently on oxygen for breath EGD was done yesterday shows gastritis esophageal ring Patient denies fever headache chest pain I am seeing the patient for GI bleed Exam Narrative: General: Patient is lying comfortably in bed in no acute distress HEENT: Dry oral mucosa, pupils equal and reactive Neck: Supple, no lymphadenopathy Respiratory: Clear to auscultation anterior Cardiac: Regular rate and rhythm, S1-S2 is normal Abdomen: distended, soft, no tenderness, dullness to percussion, distant bowel sounds Extremities: Bilateral lower extremity edema Neuro: Patient is awake, alert, follows simple commands in all extremities Skin: Skin dryness with scales all over the body, patient states that he has some skin disease since Psych: Anxious Objective Data
[2021-11-06 12:44] LABS: Glucose Point of Care 81 mg/dl (65-105)
[2021-11-06 14:46] LABS: Hematocrit 29.7 % (42.0-52.0); Hemoglobin 9.2 g/dL (14.0-18.0)
[2021-11-06 16:00] LABS: Glucose Point of Care 84 mg/dl (65-105)
[2021-11-06] MEDS: FUROSEMIDE INJ 40 MG/4 ML VIAL 20 MG IV PUSH (18:10)
[2021-11-06 20:25] LABS: Glucose Point of Care 111 mg/dl (65-105)
[2021-11-06] MEDS: GABAPENTIN 300 MG CAPSULE PO (21:32)
[2021-11-06] MEDS: rOPINIRole HCL 0.5 MG TABLET PO (21:32)
[2021-11-06] MEDS: INSULIN GLARGINE (*BKC) 100 UNITS/ML SUB-Q (21:33)
[2021-11-07] VITALS (16 sets, daily range): BP systolic 92–103; BP diastolic 50–73; PULSE 75–81; RESP 12–20; TEMP 36.2–36.7; O2SAT 96–100
[2021-11-07] MEDS: DEXTROSE 50% 25 GM/50 ML SYRINGE IV PUSH (08:01)
[2021-11-07 08:28] LABS: Glucose Point of Care 48 mg/dl (65-105)
[2021-11-07 08:29] LABS: Glucose Point of Care 127 mg/dl (65-105)
--- NOTE | 2021-11-07 08:32 | PC.NURSE ---
Patient had blood glucose of 48. PRN IV dextrose given. Follow-up accucheck of 127. Doctor notified of blood sugar, as well as 24 beat run of V-tach. Stat lab draws ordered.
[2021-11-07 09:31] LABS: Basophils Percent Auto 0.6 % (0.2-1.2); Eosinophils Absolute Auto 0.1 K/mm3 (0-0.3); Eosinophils Percent Auto 1.7 % (0-4.4); Hematocrit 27.4 % (42.0-52.0); Hemoglobin 8.3 g/dL (14.0-18.0); Immature Granulocyte Absolute 0.01 K/mm3 (0.00-0.031); Immature Granulocyte Percent A 0.2 % (0-0.5); Immature Platelet Fraction Pct 14.7 % (0.9-11.2); Lymphocytes Absolute Auto 0.76 K/mm3 (0.9-3.2); Lymphocytes Percent Auto 15.7 % (18.3-44.2); Mean Corpuscular HGB Conc 30.3 g/dl (32-36); Mean Corpuscular Hemoglobin 31.4 pg (26-34); Mean Corpuscular Volume 103.8 fl (80-100); Mean Platelet Volume 14.2 fl (7.4-10.4); Monocytes Absolute Auto 0.6 K/mm3 (0.1-0.6); Monocytes Percent Auto 11.4 % (2.6-8.5); Neutrophils Absolute Auto 3.4 K/mm3 (1.3-6.7); Neutrophils Percent Auto 70.4 % (45.5-73.1); Nucleated Red Blood Cells Perc 0.4 % (0.0-0.2); Platelet Count Result 66 k/mm3 (150-375); Red Blood Count 2.64 M/mm3 (4.6-6.20); Red Cell Distribution Width 18.8 % (11.5-14.5); White Blood Count 4.8 K/mm3 (4.5-10.0)
[2021-11-07 09:39] LABS: Alanine Aminotransferase 15 U/L (6-50); Albumin Level 2.9 g/dL (3.5-5.1); Alkaline Phosphatase 165 U/L (38-126); Anion Gap 7 mmol/L (8-16); Aspartate Amino Transferase 34 U/L (17-59); Bilirubin,Total 1.3 mg/dL (0.2-1.3); Blood Urea Nitrogen 56 mg/dL (9-20); Calcium 7.5 mg/dL (8.4-10.2); Carbon Dioxide 27 mmol/L (22-30); Chloride 105 mmol/L (98-107); Estimated CRCL calculation 39 ml/min; Estimated Glomerular Filt Rate 35; Glucose 100 mg/dL (65-110); Magnesium 2.5 mg/dL (1.6-2.3); Potassium 4.9 mmol/L (3.4-5.0); Sodium 139 mmol/L (137-145)
[2021-11-07] MEDS: PREGABALIN (*CRX) 75 MG CAPSULE 225 MG PO ×2 (09:53→18:01)
[2021-11-07] MEDS: PANTOPRAZOLE SODIUM IV 40 MG VIAL IV PUSH ×2 (09:53→21:40)
[2021-11-07] MEDS: LACTULOSE 20 GM/30 ML UDC PO ×2 (09:53→18:00)
[2021-11-07] MEDS: FUROSEMIDE INJ 40 MG/4 ML VIAL 20 MG IV PUSH ×2 (09:53→18:00)
[2021-11-07] MEDS: ISOSORBIDE DINITRATE 5 MG TABLET PO ×2 (09:54→18:01)
[2021-11-07] MEDS: DULoxetine HCL 20 MG CAPSULE.DR PO (09:54)
[2021-11-07] MEDS: PARoxetine 20 MG TABLET PO (09:54)
[2021-11-07] MEDS: TAMSULOSIN HCL 0.4 MG CAPSULE PO (09:54)
[2021-11-07] MEDS: carvediloL 3.125 MG TABLET PO (09:54)
[2021-11-07] MEDS: DULoxetine HCL 30 MG CAPSULE.DR PO (09:54)
[2021-11-07] MEDS: allopurinoL 100 MG TABLET PO (09:55)
[2021-11-07] MEDS: MULTIVITAMINS THERAPEUTIC TAB (*BKC) 1 TABLET PO (09:55)
[2021-11-07] MEDS: FINASTERIDE 5 MG TABLET PO (09:55)
[2021-11-07] MEDS: THIAMINE HCL 100 MG TABLET PO (09:55)
[2021-11-07] MEDS: FERROUS SULFATE 324 MG TABLET PO ×2 (09:55→18:01)
--- NOTE | 2021-11-07 10:29 | PM.IMPN ---
Progress Note: A&P Assessment and Plan (1) Open wound of right heel: Code(s): S91.301A - Unspecified open wound, right foot, initial encounter Status: Acute Assessment and Plan: Surgery consult probably associated with acute blood loss anemia hemostasis achieved associated with cellulitis continue IV antibiotics (2) Acute GI bleeding: Code(s): K92.2 - Gastrointestinal hemorrhage, unspecified Status: Acute Assessment and Plan: Positive occult blood GI consult Monitor H&H Protonix Status post EGD on 11/05/2021 showed esophageal ring moderate to severe gastritis continue PPI (3) Anemia: Code(s): D64.9 - Anemia, unspecified Status: Acute Assessment and Plan: Multifactorial most likely acute worsening of chronic anemia associated with acute blood loss anemia multifactorial secondary to bleeding from lower extremity ulcer and probable GI bleed secondary to moderate to severe gastritis management as above (4) CKD (chronic kidney disease) stage 3, GFR 30-59 ml/min: Code(s): N18.30 - Chronic kidney disease, stage 3 unspecified Status: Acute Assessment and Plan: Stable avoid nephrotoxic medication (5) HTN (hypertension): Qualifiers: Hypertension type: essential hypertension Qualified Code(s): I10 - Essential (primary) hypertension Code(s): I10 - Essential (primary) hypertension Status: Chronic Assessment and Plan: Blood pressure on the lower side monitor closely (6) Diabetes mellitus: Qualifiers: Diabetes mellitus type: type 2 Diabetes mellitus mcc insulin use: with mcc use Diabetes mellitus complication status: without complication Qualified Code(s): E11.9 - Type 2 diabetes mellitus without complications; Z79.4 - balloon tester (current) use of insulin Code(s): E11.9 - Type 2 diabetes mellitus without complications Status: Chronic Assessment and Plan: Insulin sliding scale Lantus (7) CHF (congestive heart failure): Qualifiers: Heart failure type: unspecified Heart failure chronicity: unspecified Qualified Code(s): I50.9 - Heart failure, unspecified Code(s): I50.9 - Heart failure, unspecified Status: Chronic Assessment and Plan: Most likely acute on top of chronic diastolic CHF exacerbation developed during hospitalization associated with acute on top of chronic hypoxemic respiratory failure continue oxygen Patient short of breath today Chest x-ray shows cardiomegaly DC IV fluid Continue IV Lasix Wean off oxygen Anticipate discharge in 1-2 days (8) Atrial fibrillation: Qualifiers: Atrial fibrillation type: unspecified Qualified Code(s): I48.91 - Unspecified atrial fibrillation Code(s): I48.91 - Unspecified atrial fibrillation Status: Chronic Assessment and Plan: Status post pacemaker placement patient on aspirin hold aspirin due to GI bleed will resume once okay with GI probably in a.m. (9) Dehydration: Code(s): E86.0 - Dehydration Status: Acute Assessment and Plan: Resolved DC IV fluid Additional Plan Repeat prophylaxis SCD Subjective Date/time seen: 11/07/21 10:29 Interval history: Patient seen and examined Patient currently on oxygen short of breath Chest x-ray shows cardiomegaly EGD was done on 11/05/2021 shows gastritis esophageal ring Patient denies fever headache chest pain I am seeing the patient for GI bleed Exam Narrative: General: Patient is lying comfortably in bed in no acute distress HEENT: Dry oral mucosa, pupils equal and reactive Neck: Supple, no lymphadenopathy Respiratory: Clear to auscultation anterior Cardiac: Regular rate and rhythm, S1-S2 is normal Abdomen: distended, soft, no tenderness, dullness to percussion, distant bowel sounds Extremities: Bilateral lower extremity edema Neuro: Patient is awake, alert, follows simple commands in all extremities
--- NOTE | 2021-11-07 11:39 | ECG_ITS ---
Measurements Intervals [place] Rate: 75 P: SD: 0 QRS: -70 QRSD: 177 T: 113 QT: 463 QTc: 520 Interpretive Statements ELECTRONIC VENTRICULAR PACEMAKER VENTRICULAR PREMATURE COMPLEXES NO FURTHER INTERPRETATION IS POSSIBLE ATYPICAL ECG Electronically Signed On 11-07-2021 18:54:00 CDT by Marc Rushing D.O.
[2021-11-07 11:55] LABS: Glucose Point of Care 73 mg/dl (65-105)
[2021-11-07] MEDS: carvediloL 12.5 MG TABLET PO ×2 (13:23→21:40)
[2021-11-07 16:51] LABS: Glucose Point of Care 139 mg/dl (65-105)
[2021-11-07] MEDS: EUCERIN CREAM 120 GM JAR 1 APPLIC TOPICAL (18:00)
[2021-11-07 20:40] LABS: Glucose Point of Care 89 mg/dl (65-105)
[2021-11-07] MEDS: rOPINIRole HCL 0.5 MG TABLET PO (21:40)
[2021-11-07] MEDS: GABAPENTIN 300 MG CAPSULE PO (21:40)
[2021-11-08] VITALS (15 sets, daily range): BP systolic 80–106; BP diastolic 54–72; PULSE 67–86; RESP 14–24; TEMP 36.1–36.4; O2SAT 95–100
--- NOTE | 2021-11-08 | ECHO_ITS ---
Patient Info Name: Clark Murguia Young Age: 61 years : 1960 Gender: Male Ht: 73 in Wt: 240 lbs BSA: 2.40 m2 HR: 75 bpm BP: 106 / 72 mmHg Heart Rhythm: Paced Technical Quality: Fair Exam Date: 11/08/2021 9:24 AM Exam Location: [facility] Pulmonary Patient Status: Inpatient Admit Date: 11/07/2021 Staff Ordering Physician: Kathe Gale M.A., MD Senior Business Objects Developer: Princess Gavin RDCS Attending Provider: Colt Eason DO Referring Physician: Star SANCHES; Exam Type: CA echo doppler color flow Study Info Indications - vtach Complete two-dimensional, color flow and Doppler transthoracic echocardiogram is performed. Summary 1. Complete two-dimensional, color flow and Doppler transthoracic echocardiogram is performed. 2. Left ventricular chamber dimension is severely enlarged. 3. Left ventricular systolic function is severely reduced, estimated at 20-25%. 4. There is no increased left ventricular wall thickness. 5. The left ventricular diastolic function is grade II diastolic dysfunction. 6. Right ventricular systolic function is severely reduced. 7. Right ventricular chamber dimension is severely enlarged. 8. Left atrial chamber dimension is severely enlarged. 9. Right atrial chamber dimension is severely enlarged. 10. There is moderate to severe tricuspid valve regurgitation. 11. Severe pulmonary hypertension, estimated pulmonary arterial systolic pressure is 63 mmHg. Left Ventricle Left ventricular chamber dimension is severely enlarged. Left ventricular systolic function is severely reduced, estimated at 20-25%. There is no increased left ventricular wall thickness. Left ventricular septal wall motion is abnormal with septal motion related to pacing. The left ventricular diastolic function is grade II diastolic dysfunction. Right Ventricle Right ventricular chamber dimension is severely enlarged. Right ventricular systolic function is severely reduced. Linear artifact in right ventricle suggestive of catheter(s), pacemaker lead(s), or ICD lead(s). Left Atria Left atrial chamber dimension is severely enlarged. Right Atria Right atrial chamber dimension is severely enlarged. Linear artifact in the right atrium suggestive of catheter(s), pacemaker lead(s), or ICD lead(s). Aortic Valve The aortic valve is probable trileaflet. There is no aortic valve stenosis. There is no aortic valve regurgitation. Pulmonic Valve The pulmonic valve is normal. There is mild pulmonic regurgitation. Mitral Valve The mitral valve has normal leaflets. There is moderate mitral valve regurgitation. Tricuspid Valve The tricuspid valve leaflets are normal. There is moderate to severe tricuspid valve regurgitation. Severe pulmonary hypertension, estimated pulmonary arterial systolic pressure is 63 mmHg. Pericardium/Pleural The pericardium appears normal. There is no pericardial effusion. Large left pleural effusion noted. Ascites noted. Inferior Vena Cava Dilated inferior vena cava with no collapse upon inspiration consistent with significantly elevated right atrial pressure, 15 mmHg. Aorta The aortic root size at the sinus of Valsalva is normal. There is mild aortic atherosclerosis. Left Ventricular Outflow Tract Name Value Normal LVOT 2D
[2021-11-08 06:26] LABS: Glucose Point of Care 102 mg/dl (65-105)
[2021-11-08 08:23] LABS: Glucose Point of Care 99 mg/dl (65-105)
[2021-11-08] MEDS: THIAMINE HCL 100 MG TABLET PO (09:14)
[2021-11-08] MEDS: FUROSEMIDE INJ 40 MG/4 ML VIAL 20 MG IV PUSH (09:14)
[2021-11-08] MEDS: FINASTERIDE 5 MG TABLET PO (09:14)
[2021-11-08] MEDS: ISOSORBIDE DINITRATE 5 MG TABLET PO ×2 (09:14→17:32)
[2021-11-08] MEDS: DULoxetine HCL 20 MG CAPSULE.DR PO (09:14)
[2021-11-08] MEDS: LACTULOSE 20 GM/30 ML UDC PO ×2 (09:14→17:31)
[2021-11-08] MEDS: allopurinoL 100 MG TABLET PO (09:14)
[2021-11-08] MEDS: carvediloL 12.5 MG TABLET PO ×2 (09:14→21:31)
[2021-11-08] MEDS: PARoxetine 20 MG TABLET PO (09:14)
[2021-11-08] MEDS: DULoxetine HCL 30 MG CAPSULE.DR PO (09:14)
[2021-11-08] MEDS: MULTIVITAMINS THERAPEUTIC TAB (*BKC) 1 TABLET PO (09:15)
[2021-11-08] MEDS: TAMSULOSIN HCL 0.4 MG CAPSULE PO (09:15)
[2021-11-08] MEDS: MAGNESIUM 27 MG TABLET (500 MG MAG GLUCONATE) PO (09:15)
[2021-11-08] MEDS: metOLazone 2.5 MG TABLET PO (09:15)
[2021-11-08] MEDS: FERROUS SULFATE 324 MG TABLET PO ×2 (09:15→17:32)
[2021-11-08] MEDS: PANTOPRAZOLE SODIUM IV 40 MG VIAL IV PUSH ×2 (09:15→21:32)
[2021-11-08 10:01] LABS: Hematocrit 27.3 % (42.0-52.0); Hemoglobin 8.6 g/dL (14.0-18.0)
[2021-11-08] MEDS: PREGABALIN (*CRX) 75 MG CAPSULE 225 MG PO ×2 (10:17→17:31)
--- NOTE | 2021-11-08 10:44 | PM.IMPN ---
Progress Note: A&P Assessment and Plan (1) Open wound of right heel: Code(s): S91.301A - Unspecified open wound, right foot, initial encounter Status: Acute Assessment and Plan: Surgery consult probably associated with acute blood loss anemia hemostasis achieved associated with cellulitis continue IV antibiotics (2) Acute GI bleeding: Code(s): K92.2 - Gastrointestinal hemorrhage, unspecified Status: Acute Assessment and Plan: Positive occult blood GI consult Monitor H&H Protonix Status post EGD on 11/05/2021 showed esophageal ring moderate to severe gastritis continue PPI Avoid NSAID No antiplatelet/anticoagulation for couple weeks from time of endoscopy (3) Anemia: Code(s): D64.9 - Anemia, unspecified Status: Acute Assessment and Plan: Multifactorial most likely acute worsening of chronic anemia associated with acute blood loss anemia multifactorial secondary to bleeding from lower extremity ulcer and probable GI bleed secondary to moderate to severe gastritis management as above (4) CKD (chronic kidney disease) stage 3, GFR 30-59 ml/min: Code(s): N18.30 - Chronic kidney disease, stage 3 unspecified Status: Acute Assessment and Plan: Stable avoid nephrotoxic medication (5) HTN (hypertension): Qualifiers: Hypertension type: essential hypertension Qualified Code(s): I10 - Essential (primary) hypertension Code(s): I10 - Essential (primary) hypertension Status: Chronic Assessment and Plan: Blood pressure on the lower side monitor closely Blood pressure on the lower side hold IV Lasix (6) Diabetes mellitus: Qualifiers: Diabetes mellitus type: type 2 Diabetes mellitus mcc insulin use: with long wall mining machine tender use Diabetes mellitus complication status: without complication Qualified Code(s): E11.9 - Type 2 diabetes mellitus without complications; Z79.4 - retirement (current) use of insulin Code(s): E11.9 - Type 2 diabetes mellitus without complications Status: Chronic Assessment and Plan: Insulin sliding scale Lantus (7) CHF (congestive heart failure): Qualifiers: Heart failure type: unspecified Heart failure chronicity: unspecified Qualified Code(s): I50.9 - Heart failure, unspecified Code(s): I50.9 - Heart failure, unspecified Status: Chronic Assessment and Plan: Most likely acute on top of chronic diastolic CHF exacerbation developed during hospitalization associated with acute on top of chronic hypoxemic respiratory failure continue oxygen Patient short of breath today Chest x-ray shows cardiomegaly DC IV fluid Hold IV Lasix pending cardiology evaluation Wean off oxygen (8) Atrial fibrillation: Qualifiers: Atrial fibrillation type: unspecified Qualified Code(s): I48.91 - Unspecified atrial fibrillation Code(s): I48.91 - Unspecified atrial fibrillation Status: Chronic Assessment and Plan: Status post pacemaker placement patient on aspirin hold aspirin due to GI bleed will resume once okay with GI probably in a.m. (9) Dehydration: Code(s): E86.0 - Dehydration Status: Acute Assessment and Plan: Resolved DC IV fluid (10) Acute hypoxemic respiratory failure: Code(s): J96.01 - Acute respiratory failure with hypoxia Status: Acute Assessment and Plan: Will get CT scan of the chest Will get V/Q scan rule out PE Probably related to CHF exacerbation (11) Encephalopathy: Code(s): G93.40 - Encephalopathy, unspecified Status: Acute Assessment and Plan: Check ammonia level Probably related to CHF exacerbation anemia and cellulitis (12) Cirrhosis: Code(s): K74.60 - Unspecified cirrhosis of liver Status: Acute Assessment and Plan: Workup for liver cirrhosis pending Autoimmune workup pending GI following Additional Plan Repeat prophylaxis SCD
[2021-11-08 10:50] LABS: Basophils Percent Auto 0.7 % (0.2-1.2); Eosinophils Absolute Auto 0.1 K/mm3 (0-0.3); Hematocrit 27.6 % (42.0-52.0); Hemoglobin 8.5 g/dL (14.0-18.0); Immature Granulocyte Absolute 0.02 K/mm3 (0.00-0.031); Immature Granulocyte Percent A 0.4 % (0-0.5); Immature Platelet Fraction Pct 13.7 % (0.9-11.2); Lymphocytes Absolute Auto 0.79 K/mm3 (0.9-3.2); Lymphocytes Percent Auto 17.2 % (18.3-44.2); Mean Corpuscular HGB Conc 30.8 g/dl (32-36); Mean Corpuscular Hemoglobin 31.1 pg (26-34); Mean Corpuscular Volume 101.1 fl (80-100); Mean Platelet Volume 13.7 fl (7.4-10.4); Monocytes Absolute Auto 0.7 K/mm3 (0.1-0.6); Monocytes Percent Auto 14.3 % (2.6-8.5); Neutrophils Percent Auto 64.4 % (45.5-73.1); Platelet Count Result 57 k/mm3 (150-375); Red Blood Count 2.73 M/mm3 (4.6-6.20); Red Cell Distribution Width 18.3 % (11.5-14.5); White Blood Count 4.6 K/mm3 (4.5-10.0)
[2021-11-08 10:56] LABS: Alanine Aminotransferase 14 U/L (6-50); Albumin Level 2.6 g/dL (3.5-5.1); Alkaline Phosphatase 162 U/L (38-126); Anion Gap 5 mmol/L (8-16); Aspartate Amino Transferase 32 U/L (17-59); Blood Urea Nitrogen 55 mg/dL (9-20); Calcium 7.2 mg/dL (8.4-10.2); Carbon Dioxide 26 mmol/L (22-30); Chloride 104 mmol/L (98-107); Estimated CRCL calculation 41 ml/min; Estimated Glomerular Filt Rate 37; Glucose 109 mg/dL (65-110); Magnesium 2.3 mg/dL (1.6-2.3); Potassium 4.5 mmol/L (3.4-5.0); Sodium 135 mmol/L (137-145)
[2021-11-08 12:38] LABS: Glucose Point of Care 101 mg/dl (65-105)
[2021-11-08 13:49] LABS: Ammonia < 9 umol/L (9-30)
--- NOTE | 2021-11-08 14:20 | WPDGIPROGNO ---
Progress Note: A&P Assessment and Plan (1) Erosive gastritis: Code(s): K29.60 - Other gastritis without bleeding Status: Acute Assessment and Plan: egd showed erosive gastritis but no active bleeding continue with protonix twice daiy, avoid nsaid's will follow from [place], call if questions (2) Occult blood in stools: Code(s): R19.5 - Other fecal abnormalities Status: Acute Assessment and Plan: no overt gib (3) Acute on chronic anemia: Code(s): D64.9 - Anemia, unspecified Status: Acute (4) Acute hypoxemic respiratory failure: Code(s): J96.01 - Acute respiratory failure with hypoxia Status: Acute Assessment and Plan: primary ordered CT chest (5) Chronic ITP (idiopathic thrombocytopenia): Code(s): D69.3 - Immune thrombocytopenic purpura Status: Acute Assessment and Plan: hematology on board, chronic diagnosis platelets low but stable (6) Cirrhosis: Code(s): K74.60 - Unspecified cirrhosis of liver Status: Acute Assessment and Plan: possible diagnosis no varices in EGD Subjective Date/time seen: 11/08/21 14:20 Interval history: egd Monday showed erosive gastritis, hb stable over the weekend, no report of gib Review of Systems Review of Systems: All systems reviewed & are unremarkable except as noted in HPI and below Exam Const: General: comfortable, no acute distress, alert, awake and ill appearing chronically HENMT: Head: normocephalic and atraumatic Ears: hearing grossly normal bilaterally Mouth: Yes moist mucous membranes Eyes: Pupils: Equal, round and reactive pupils present Neck: Neck: normal visual inspection, full ROM and supple Resp: Effort & Inspection: no respiratory distress Cardio: Rate: regular rate Rhythm: regular rhythm GI: Inspection: no scars GI Palp: Yes Soft to palpation, No Tenderness to palpation present (GI), No Guarding due to palpation present (GI), Yes Ascites present and No Rebound tenderness present Auscultation: normal bowel sounds Other: ? fluid wave Skin: Other: Right foot pressure dressing dry and intact. dry skin Neuro: General: moves all extremities Speech: normal speech Motor exam (neuro): 5/5 motor strength present throughout Extrem: General: no edema Psych: Mental Status: mental status grossly normal Insight: Fair insight present (Psych) Judgement: Fair judgement present (Psych) Objective Data Vital Signs Vital Signs: Vital Signs - 24 hr 11/07/21 16:00 11/07/21 18:00 11/07/21 20:00 Temperature 98.0 F 97.3 F L Pulse Rate 75 76 78 Respiratory Rate 17 20 Blood Pressure 92/50 L 101/67 Pulse Oximetry 97 100 11/07/21 21:40 11/07/21 22:00 11/07/21 23:40 Temperature 97.6 F Pulse Rate 78 78 77 Respiratory Rate 20 Blood Pressure 102/69 Pulse Oximetry 97 11/08/21 00:00 11/08/21 02:00 11/08/21 04:00 Temperature 97.3 F L Pulse Rate 81 81 68 Respiratory Rate 20 22 H Blood Pressure 106/72 Pulse Oximetry 97 96 11/08/21 05:47 11/08/21 08:00 11/08/21 12:00 Temperature 97.3 F L 97.1 F L Pulse Rate 75 83 84 Respiratory Rate 14 20 Blood Pressure 99/63 L 90/62 L Pulse Oximetry 95 100 Intake/Output Intake/Output: Intake & Output 11/05/21 11/06/21 11/07/21 11/08/21 23:59 23:59 23:59 23:59 Intake Total 1961 1460 650 610 Output Total 200 375 530 650 Balance 1761 1085 120 -40 Meds/Results Medications: Active Medications Generic Name Dose Route Start Last Admin Trade Name Freq PRN Reason Stop Dose Admin Allopurinol 100 mg 11/04/21 09:50 11/08/21 09:14 Allopurinol 100 Mg Tablet PO 100 mg DAILY VALERIY Administration Bisacodyl 5 mg 11/04/21 09:40 Bisacodyl 5 Mg Tablet Ec PO DAILY PRN Constipation Carvedilol 12.5 mg 11/07/21 11:40 11/08/21 09:14 Carvedilol 12.5 Mg Tablet PO 12.5 mg Q12HR VALERIY Administration Dextrose 12.5 gm 11/04/21 09:39 11/07/21 08:01 Dext
--- NOTE | 2021-11-08 14:56 | PM.CNCAR ---
Assessment and Plan Assessment and plan (1) Nonsustained ventricular tachycardia: Code(s): I47.2 - Ventricular tachycardia Status: Acute Assessment and Plan: Intermittent, asymptomatic nonsustained VT longest duration identified 13 beats. Based upon available imaging, exam and patient corroboration. Patient has a biventricular ICD. Obtain records for further clarification as the etiology of LV dysfunction and details of ICD implantation. Continue carvedilol at present dose as BP tolerates. Monitor electrolytes, potassium and magnesium stable. Patient is and will remain at elevated risk for ventricular tachycardia and or ventricular fibrillation given severe LV dysfunction hence indication for ICD implantation. (2) Biventricular ICD (implantable cardioverter-defibrillator) in place: Code(s): Z95.810 - Presence of automatic (implantable) cardiac defibrillator Status: Acute Assessment and Plan: Need to obtain prior Cardiology records to confirm management analyst and last interrogation. He is paced. (3) Heart failure with reduced ejection fraction: Code(s): I50.20 - Unspecified systolic (congestive) heart failure Status: Acute Assessment and Plan: Patient does not appear to be grossly volume overloaded at this time. Monitor renal function, blood pressure closely. He has severe LV systolic dysfunction EF 20-25% with a documented history of nonischemic cardiomyopathy, heart failure with reduced ejection fraction and evidence of biventricular ICD. I would not expect him to mount a significant blood pressure response. Caution to hold medications for relative hypotension unless systolic blood pressure in the 80s or symptomatic with worsening renal failure. (4) Cardiomyopathy: Code(s): I42.9 - Cardiomyopathy, unspecified Status: Acute Assessment and Plan: As above, documentation nonischemic etiology. Further corroborating details unavailable at this time. (5) Atrial fibrillation: Qualifiers: Atrial fibrillation type: unspecified Qualified Code(s): I48.91 - Unspecified atrial fibrillation Code(s): I48.91 - Unspecified atrial fibrillation Status: Chronic Assessment and Plan: Reported history on aspirin only which has been held secondary to anemia, severe erosive gastritis, occult blood a concern for GI bleed. (6) Acute hypoxemic respiratory failure: Code(s): J96.01 - Acute respiratory failure with hypoxia Status: Acute Assessment and Plan: Wean O2 as tolerated. Cautious diuresis. He was on Lasix 80 mg daily at home. As tolerated resume home Lasix. CT with evidence of possible pneumonia. Defer management to primary service. Patient also has severe pulmonary hypertension with RVSP 63 mm Hg. (7) Erosive gastritis: Code(s): K29.60 - Other gastritis without bleeding Status: Acute Assessment and Plan: As above, ppi, avoidance of NSAIDs. Monitor for bleeding. (8) Occult blood in stools: Code(s): R19.5 - Other fecal abnormalities Status: Acute Assessment and Plan: As above (9) Diabetes mellitus: Qualifiers: Diabetes mellitus type: type 2 Diabetes mellitus long term care phlebotomist insulin use: with long term care phlebotomist use Diabetes mellitus complication status: without complication Qualified Code(s): E11.9 - Type 2 diabetes mellitus without complications; Z79.4 - termite exterminator helper (current) use of insulin Code(s): E11.9 - Type 2 diabetes mellitus without complications Status: Chronic Assessment and Plan: Management per primary service. (10) Acute on chronic renal failure: Code(s): N17.9 - Acute kidney failure, unspecified; N18.9 - Chronic kidney disease, unspecified Status: Acute Assessment and Plan: Avoid nephrotoxic agents as tolerated. History of Present Illness History of Present Illness Consult date/time: Date of service: 11/08/21 14:56 Cardiology cons
[2021-11-08 16:41] LABS: Glucose Point of Care 140 mg/dl (65-105)
[2021-11-08] MEDS: DOXYCYCLINE 100 MG/NS 100 ML 100 MG/100 ML BAG IVPB (17:29)
[2021-11-08 18:25] LABS: Influenza A QL RT-PCR Negative (Negative); Influenza B QL RT-PCR Negative (Negative); SARS-CoV-2 RNA PCR Negative
[2021-11-08] MEDS: MIDODRINE HCL 2.5 MG TABLET 5 MG PO (18:48)
[2021-11-08 20:25] LABS: Glucose Point of Care 107 mg/dl (65-105)
[2021-11-08] MEDS: GABAPENTIN 300 MG CAPSULE PO (21:31)
[2021-11-08] MEDS: rOPINIRole HCL 0.5 MG TABLET PO (21:31)
[2021-11-09] VITALS (16 sets, daily range): BP systolic 83–105; BP diastolic 46–77; PULSE 75–84; RESP 16–22; TEMP 36.2–36.9; O2SAT 95–100
[2021-11-09 03:18] LABS: Basophils Percent Auto 0.4 % (0.2-1.2); Eosinophils Absolute Auto 0.1 K/mm3 (0-0.3); Eosinophils Percent Auto 3.1 % (0-4.4); Hematocrit 24.9 % (42.0-52.0); Hemoglobin 7.7 g/dL (14.0-18.0); Immature Granulocyte Absolute 0.03 K/mm3 (0.00-0.031); Immature Granulocyte Percent A 0.7 % (0-0.5); Immature Platelet Fraction Pct 13.2 % (0.9-11.2); Lymphocytes Absolute Auto 0.84 K/mm3 (0.9-3.2); Lymphocytes Percent Auto 18.9 % (18.3-44.2); Mean Corpuscular HGB Conc 30.9 g/dl (32-36); Mean Corpuscular Hemoglobin 31.3 pg (26-34); Mean Corpuscular Volume 101.2 fl (80-100); Mean Platelet Volume 13.6 fl (7.4-10.4); Monocytes Absolute Auto 0.5 K/mm3 (0.1-0.6); Monocytes Percent Auto 10.3 % (2.6-8.5); Neutrophils Percent Auto 66.6 % (45.5-73.1); Nucleated Red Blood Cells Perc 0.4 % (0.0-0.2); Platelet Count Result 63 k/mm3 (150-375); Red Blood Count 2.46 M/mm3 (4.6-6.20); Red Cell Distribution Width 18.1 % (11.5-14.5); White Blood Count 4.5 K/mm3 (4.5-10.0)
[2021-11-09 03:29] LABS: Alanine Aminotransferase 14 U/L (6-50); Albumin Level 2.7 g/dL (3.5-5.1); Alkaline Phosphatase 174 U/L (38-126); Anion Gap 8 mmol/L (8-16); Aspartate Amino Transferase 30 U/L (17-59); Blood Urea Nitrogen 56 mg/dL (9-20); Calcium 7.2 mg/dL (8.4-10.2); Carbon Dioxide 25 mmol/L (22-30); Chloride 104 mmol/L (98-107); Estimated CRCL calculation 39 ml/min; Estimated Glomerular Filt Rate 35; Glucose 114 mg/dL (65-110); Magnesium 2.3 mg/dL (1.6-2.3); Potassium 4.3 mmol/L (3.4-5.0); Sodium 137 mmol/L (137-145)
[2021-11-09] MEDS: DOXYCYCLINE 100 MG/NS 100 ML 100 MG/100 ML BAG IVPB ×2 (04:26→17:49)
[2021-11-09 08:59] LABS: Glucose Point of Care 120 mg/dl (65-105)
[2021-11-09] MEDS: PREGABALIN (*CRX) 75 MG CAPSULE 225 MG PO ×2 (09:30→17:53)
[2021-11-09] MEDS: MIDODRINE HCL 2.5 MG TABLET 5 MG PO ×2 (09:30→17:58)
[2021-11-09] MEDS: THIAMINE HCL 100 MG TABLET PO (09:31)
[2021-11-09] MEDS: LACTULOSE 20 GM/30 ML UDC PO ×2 (09:31→17:56)
[2021-11-09] MEDS: FINASTERIDE 5 MG TABLET PO (09:31)
[2021-11-09] MEDS: DULoxetine HCL 30 MG CAPSULE.DR PO (09:31)
[2021-11-09] MEDS: TAMSULOSIN HCL 0.4 MG CAPSULE PO (09:31)
[2021-11-09] MEDS: PARoxetine 20 MG TABLET PO (09:31)
[2021-11-09] MEDS: ISOSORBIDE DINITRATE 5 MG TABLET PO (09:31)
[2021-11-09] MEDS: carvediloL 12.5 MG TABLET PO (09:31)
[2021-11-09] MEDS: MULTIVITAMINS THERAPEUTIC TAB (*BKC) 1 TABLET PO (09:31)
[2021-11-09] MEDS: MAGNESIUM 27 MG TABLET (500 MG MAG GLUCONATE) PO (09:31)
[2021-11-09] MEDS: DULoxetine HCL 20 MG CAPSULE.DR PO (09:32)
[2021-11-09] MEDS: allopurinoL 100 MG TABLET PO (09:32)
[2021-11-09] MEDS: FERROUS SULFATE 324 MG TABLET PO ×2 (09:32→17:53)
[2021-11-09] MEDS: PANTOPRAZOLE SODIUM IV 40 MG VIAL IV PUSH ×2 (09:32→20:51)
[2021-11-09] MEDS: EUCERIN CREAM 120 GM JAR 1 APPLIC TOPICAL (09:32)
[2021-11-09 10:08] LABS: Hematocrit 24.7 % (42.0-52.0); Hemoglobin 7.9 g/dL (14.0-18.0)
--- NOTE | 2021-11-09 10:11 | W.PM.PROC2 ---
Procedure Note - Detailed Date of Procedure 11/09/21 Pre-op Diagnosis Right lateral foot wound Post-op Diagnosis Same Procedure Performed partial suture removal, silver nitrate cautery Surgeon Myke Solitario MD Anesthesia None Indications patient is a 61-year-old man with chronic thrombocytopenia. On his day of admission, he came to the emergency room due to bleeding from what was described as a skin tear on the lateral aspect of the right foot closer to the heel and lateral malleolus. Emergency room physician had a difficult time stopping this bleeding and called me. She had already placed sutures to attempt hemostasis. Eventually it did stop bleeding. The patient has a few fine Prolene sutures still in the wound. I attempted to remove all the sutures at the bedside at this time. Findings I was able to remove 2 sutures but two more still remain. During the process, bleeding again started. Also the patient was complaining of pain with any type of touch or manipulation to the area. I had to stop due to the bleeding and poor visualization. Description of Procedure patient was placed in left lateral position so that the lateral aspect of the right foot was exposed. The wound and the blue Prolene suture were visualized. The 1st suture was able to be removed with minimal discomfort. On removing the 2nd suture, the patient had more discomfort and venous bleeding resulted. There were still 2 more suture remaining. I attempted to remove these but the patient was very uncomfortable and the bleeding was making visualization unacceptable. I had to stop and hold pressure on the wound. The bleeding persisted and I used silver nitrate cautery and pressure. This resulted in cessation of the bleeding. I tried once again to remove a suture but the patient again experienced pain. The bleeding started. I held pressure again and achieved hemostasis. Patient was having pain with attempts at suture removal as well as silver nitrate cautery administration as well as holding pressure over the site. I dressed the wound with a large Band-Aid. It was dry and in good condition at the conclusion of the procedure. Estimated Blood Loss -5 Urine Output 200 Packing No Pathology None sent Complications No immediate complications Condition Stable Disposition No change
--- NOTE | 2021-11-09 10:34 | PCSTNOTE ---
Please refer to the Bedside Swallow Evaluation in the EMR. Please note, silent aspiration cannot be ruled out at bedside.
[2021-11-09 12:09] LABS: Glucose Point of Care 120 mg/dl (65-105)
[2021-11-09 12:23] LABS: Ceruloplasmin 49 mg/dL (18-36)
[2021-11-09 16:45] LABS: Glucose Point of Care 116 mg/dl (65-105)
[2021-11-09] MEDS: ACETAMINOPHEN 325 MG TABLET 650 MG PO (17:35)
--- NOTE | 2021-11-09 18:36 | PM.IMPN ---
Progress Note: A&P Assessment and Plan (1) Open wound of right heel: Code(s): S91.301A - Unspecified open wound, right foot, initial encounter Status: Acute Assessment and Plan: Surgery consult probably associated with acute blood loss anemia hemostasis achieved associated with cellulitis continue IV antibiotics (2) Acute GI bleeding: Code(s): K92.2 - Gastrointestinal hemorrhage, unspecified Status: Acute Assessment and Plan: Positive occult blood GI consult Monitor H&H Protonix Status post EGD on 11/05/2021 showed esophageal ring moderate to severe gastritis continue PPI Avoid NSAID No antiplatelet/anticoagulation for couple weeks from time of endoscopy (3) Anemia: Qualifiers: Anemia type: other cause Other causes of anemia: chronic disease, other Qualified Code(s): D63.8 - Anemia in other chronic diseases classified elsewhere Code(s): D64.9 - Anemia, unspecified Status: Acute Assessment and Plan: Multifactorial most likely acute worsening of chronic anemia associated with acute blood loss anemia multifactorial secondary to bleeding from lower extremity ulcer and probable GI bleed secondary to moderate to severe gastritis management as above (4) CKD (chronic kidney disease) stage 3, GFR 30-59 ml/min: Code(s): N18.30 - Chronic kidney disease, stage 3 unspecified Status: Acute Assessment and Plan: Stable avoid nephrotoxic medication (5) HTN (hypertension): Qualifiers: Hypertension type: essential hypertension Qualified Code(s): I10 - Essential (primary) hypertension Code(s): I10 - Essential (primary) hypertension Status: Chronic Assessment and Plan: Blood pressure on the lower side monitor closely Blood pressure on the lower side hold IV Lasix (6) Diabetes mellitus: Qualifiers: Diabetes mellitus type: type 2 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: with long-term use Diabetes mellitus complication status: without complication Qualified Code(s): E11.9 - Type 2 diabetes mellitus without complications; Z79.4 - halfway (current) use of insulin Code(s): E11.9 - Type 2 diabetes mellitus without complications Status: Chronic Assessment and Plan: Insulin sliding scale Lantus (7) CHF (congestive heart failure): Qualifiers: Heart failure type: unspecified Heart failure chronicity: unspecified Qualified Code(s): I50.9 - Heart failure, unspecified Code(s): I50.9 - Heart failure, unspecified Status: Chronic Assessment and Plan: Most likely acute on top of chronic diastolic CHF exacerbation developed during hospitalization associated with acute on top of chronic hypoxemic respiratory failure continue oxygen Patient short of breath today Chest x-ray shows cardiomegaly DC IV fluid Hold IV Lasix pending cardiology evaluation Wean off oxygen (8) Atrial fibrillation: Qualifiers: Atrial fibrillation type: unspecified Qualified Code(s): I48.91 - Unspecified atrial fibrillation Code(s): I48.91 - Unspecified atrial fibrillation Status: Chronic Assessment and Plan: Status post pacemaker placement patient on aspirin hold aspirin due to GI bleed will resume once okay with GI probably in a.m. (9) Dehydration: Code(s): E86.0 - Dehydration Status: Acute Assessment and Plan: Resolved DC IV fluid (10) Acute hypoxemic respiratory failure: Code(s): J96.01 - Acute respiratory failure with hypoxia Status: Acute Assessment and Plan: Will get CT scan of the chest Will get V/Q scan rule out PE Probably related to CHF exacerbation (11) Encephalopathy: Code(s): G93.40 - Encephalopathy, unspecified Status: Acute Assessment and Plan: Check ammonia level Probably related to CHF exacerbation anemia and cellulitis (12) Cirrhosis: Code(s): K74.60 - Unspecified cirrhos
[2021-11-09 20:25] LABS: Glucose Point of Care 114 mg/dl (65-105)
[2021-11-09] MEDS: rOPINIRole HCL 0.5 MG TABLET PO (20:50)
[2021-11-09] MEDS: carvediloL 6.25 MG TABLET PO (20:51)
[2021-11-09] MEDS: GABAPENTIN 300 MG CAPSULE PO (20:51)
[2021-11-09 21:20] LABS: Mitochondrial (M2) Ab (IgG) <=20.0 U (<=20.0)
[2021-11-10] VITALS (16 sets, daily range): BP systolic 86–97; BP diastolic 57–70; PULSE 75–81; RESP 16–22; TEMP 36.3–36.8; O2SAT 93–100
[2021-11-10] MEDS: DOXYCYCLINE 100 MG/NS 100 ML 100 MG/100 ML BAG IVPB ×2 (04:56→17:25)
[2021-11-10 05:19] LABS: Basophils Percent Auto 0.6 % (0.2-1.2); Eosinophils Absolute Auto 0.1 K/mm3 (0-0.3); Eosinophils Percent Auto 2.7 % (0-4.4); Hematocrit 25.8 % (42.0-52.0); Hemoglobin 7.9 g/dL (14.0-18.0); Immature Granulocyte Absolute 0.03 K/mm3 (0.00-0.031); Immature Granulocyte Percent A 0.6 % (0-0.5); Immature Platelet Fraction Pct 14.8 % (0.9-11.2); Lymphocytes Absolute Auto 0.96 K/mm3 (0.9-3.2); Lymphocytes Percent Auto 18.4 % (18.3-44.2); Mean Corpuscular HGB Conc 30.6 g/dl (32-36); Mean Corpuscular Volume 101.2 fl (80-100); Mean Platelet Volume 13.9 fl (7.4-10.4); Monocytes Absolute Auto 0.8 K/mm3 (0.1-0.6); Monocytes Percent Auto 14.5 % (2.6-8.5); Neutrophils Absolute Auto 3.3 K/mm3 (1.3-6.7); Neutrophils Percent Auto 63.2 % (45.5-73.1); Platelet Count Result 59 k/mm3 (150-375); Red Blood Count 2.55 M/mm3 (4.6-6.20); Red Cell Distribution Width 18.6 % (11.5-14.5); White Blood Count 5.2 K/mm3 (4.5-10.0)
[2021-11-10 05:30] LABS: Alanine Aminotransferase 13 U/L (6-50); Albumin Level 2.7 g/dL (3.5-5.1); Alkaline Phosphatase 187 U/L (38-126); Anion Gap 8 mmol/L (8-16); Aspartate Amino Transferase 29 U/L (17-59); Blood Urea Nitrogen 57 mg/dL (9-20); Calcium 7.1 mg/dL (8.4-10.2); Carbon Dioxide 25 mmol/L (22-30); Chloride 103 mmol/L (98-107); Estimated CRCL calculation 33 ml/min; Estimated Glomerular Filt Rate 33; Glucose 99 mg/dL (65-110); Magnesium 2.3 mg/dL (1.6-2.3); Potassium 4.5 mmol/L (3.4-5.0); Sodium 136 mmol/L (137-145)
[2021-11-10 08:20] LABS: Glucose Point of Care 108 mg/dl (65-105)
[2021-11-10 10:03] LABS: Hematocrit 25.5 % (42.0-52.0); Hemoglobin 7.7 g/dL (14.0-18.0)
--- NOTE | 2021-11-10 11:21 | PM.PNCARD ---
Progress Note: A&P Assessment and Plan (1) Nonsustained ventricular tachycardia: Code(s): I47.2 - Ventricular tachycardia Status: Acute Assessment and Plan: Intermittent, asymptomatic nonsustained VT longest duration identified 13 beats. Based upon available imaging, exam and patient corroboration. Patient has a biventricular ICD. Obtain records for further clarification as the etiology of LV dysfunction and details of ICD implantation. Continue carvedilol at present dose as BP tolerates. Monitor electrolytes, potassium and magnesium stable. Patient is and will remain at elevated risk for ventricular tachycardia and or ventricular fibrillation given severe LV dysfunction hence indication for ICD implantation. Carvedilol as BP permits. No significant recurrence past 24 hours. 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 He is paced. (3) Hypotension: Qualifiers: Hypotension type: hypotension due to drug Qualified Code(s): I95.2 - Hypotension due to drugs Code(s): I95.9 - Hypotension, unspecified Status: Acute Assessment and Plan: Hold antihypertensive medications. Reduce carvedilol to 3.125 mg twice daily, held this morning. Midodrine added by primary service. Appropriate management and workup per primary service including blood cultures, urinalysis and urine culture. Follow H& H. Monitor for signs of recurrent bleeding. Monitor nutritional volume status closely. If he becomes more hypotensive IV normal saline 250 cc most reasonable as he is at increased risk for dehydration despite low EF. (4) Cardiomyopathy: Qualifiers: Cardiomyopathy type: dilated Qualified Code(s): I42.0 - Dilated cardiomyopathy Code(s): I42.9 - Cardiomyopathy, unspecified Status: Acute Assessment and Plan: As above, documentation nonischemic etiology. EF 20-25%. (5) Anemia: Qualifiers: Anemia type: other cause Other causes of anemia: chronic disease, other Qualified Code(s): D63.8 - Anemia in other chronic diseases classified elsewhere Code(s): D64.9 - Anemia, unspecified Status: Acute Assessment and Plan: Acute on chronic likely multifactorial related to blood loss secondary to bleeding and presentation, occult positive stools chronic chronic kidney disease. Management per primary service. (6) Heart failure with reduced ejection fraction: Code(s): I50.20 - Unspecified systolic (congestive) heart failure Status: Acute Assessment and Plan: Patient does not appear to be grossly volume overloaded at this time. Diuretics held due to relative hypotension. Monitor renal function, blood pressure. He has severe LV systolic dysfunction EF 20-25% with a documented history of nonischemic cardiomyopathy, heart failure with reduced ejection fraction and evidence of biventricular ICD. I would not expect him to mount a significant blood pressure response. (7) Acute on chronic renal failure: Qualifiers: Chronic kidney disease stage: stage 3 (moderate) Acute renal failure type: unspecified Code(s): N17.9 - Acute kidney failure, unspecified; N18.9 - Chronic kidney disease, unspecified Status: Acute Assessment and Plan: Avoid nephrotoxic agents as tolerated. (8) Acute hypoxemic respiratory failure: Code(s): J96.01 - Acute respiratory failure with hypoxia Status: Acute Assessment and Plan: Wean O2 as tolerated. Cautious diuresis. He was on Lasix 80 mg daily at home. As tolerated resume home Lasix. CT with evidence of possible pneumonia. Defer management to primary service. Patient also has severe pulmonary hypertension with RVSP 63 mm Hg.
[2021-11-10 12:32] LABS: Glucose Point of Care 97 mg/dl (65-105)
[2021-11-10] MEDS: LACTULOSE 20 GM/30 ML UDC PO (13:10)
[2021-11-10] MEDS: MIDODRINE HCL 2.5 MG TABLET 5 MG PO ×2 (13:10→17:24)
[2021-11-10] MEDS: MAGNESIUM 27 MG TABLET (500 MG MAG GLUCONATE) PO (13:11)
[2021-11-10] MEDS: TAMSULOSIN HCL 0.4 MG CAPSULE PO (13:12)
[2021-11-10] MEDS: MULTIVITAMINS THERAPEUTIC TAB (*BKC) 1 TABLET PO (13:12)
[2021-11-10] MEDS: DULoxetine HCL 30 MG CAPSULE.DR PO (13:12)
[2021-11-10] MEDS: FERROUS SULFATE 324 MG TABLET PO ×2 (13:12→17:24)
[2021-11-10] MEDS: PARoxetine 20 MG TABLET PO (13:13)
[2021-11-10] MEDS: FINASTERIDE 5 MG TABLET PO (13:13)
[2021-11-10] MEDS: allopurinoL 100 MG TABLET PO (13:13)
[2021-11-10] MEDS: PANTOPRAZOLE SODIUM IV 40 MG VIAL IV PUSH ×2 (13:13→21:56)
[2021-11-10] MEDS: THIAMINE HCL 100 MG TABLET PO (13:13)
[2021-11-10] MEDS: DULoxetine HCL 20 MG CAPSULE.DR PO (13:13)
[2021-11-10] MEDS: EUCERIN CREAM 120 GM JAR 1 APPLIC TOPICAL (13:14)
[2021-11-10] MEDS: PREGABALIN (*CRX) 75 MG CAPSULE 225 MG PO (13:18)
[2021-11-10] MEDS: ACETAMINOPHEN 325 MG TABLET 650 MG PO (13:28)
--- NOTE | 2021-11-10 15:10 | P.OP_ITS ---
Procedure Note - Detailed Date of Procedure 11/10/21 Pre-op Diagnosis Bleeding wound right foot Post-op Diagnosis Same Procedure Performed Suture removal, control of bleeding right foot wound Surgeon Myke Solitario MD Supervisor [employer] Alethea [place] [facility] Anesthesia Local (1% lidocaine with epinephrine) Indications Patient is a 61-year-old man who is admitted with GI bleeding. He had came to the emergency room over week ago however because he had persistent bleeding from a wound on the lateral aspect of his right foot near the heel and lateral malleolus. The emergency room physician was having difficulty controlling this bleeding and put several Prolene sutures in the wound in attempts to stop the bleeding. Heavy bandaging did result in hemostasis. Yesterday, I removed 2 of the sutures but the wound started bleeding again and the patient was experiencing significant pain with silver nitrate cautery and pressure to the wound. We returned to the bedside today to remove the remaining 2 sutures and gain hemostasis of the wound under local anesthetic. Findings The wound was a result of the flaking skin of the lower extremity becoming removing some of the overlying skin and venous bleeding resulted. Description of Procedure Patient was placed in left lateral decubitus position and the right lateral foot was exposed with a pillow between the 2 feet. The wound was dry from previous silver nitrate cautery done yesterday. Fine Prolene suture were again visible in the wound. The area was prepped with alcohol and then local anesthetic was infiltrated in the area of the wound using a full 10 cc of local. The suture material was grasped with a DeBakey forceps and I was able to remove this suture. After removal, some venous bleeding did start but was fairly mild. With some pressure, the into the remaining suture was found and pulling this up into the wound it was removed as well. This did result in quite a bit more venous oozing. We used silver nitrate cautery and pressure to achieve hemostasis. Eventually the wound was very dry and looked good. All suture had been removed. I placed a Band-Aid over the wound. Patient was comfortable throughout the procedure. Estimated Blood Loss -5 Urine Output 0 Drains No Packing No Pathology None sent Complications No immediate complications Condition Stable Disposition No change
[2021-11-10 17:00] LABS: Glucose Point of Care 144 mg/dl (65-105)
--- NOTE | 2021-11-10 17:43 | P.PNIM_ITS ---
Progress Note: A&P Assessment and Plan (1) Open wound of right heel: Code(s): S91.301A - Unspecified open wound, right foot, initial encounter Status: Acute Assessment and Plan: Surgery consult probably associated with acute blood loss anemia hemostasis achieved associated with cellulitis continue IV antibiotics (2) Acute GI bleeding: Code(s): K92.2 - Gastrointestinal hemorrhage, unspecified Status: Acute Assessment and Plan: Positive occult blood GI consult Monitor H&H Protonix Status post EGD on 11/05/2021 showed esophageal ring moderate to severe gastritis continue PPI Avoid NSAID No antiplatelet/anticoagulation for couple weeks from time of endoscopy (3) Anemia: Qualifiers: Anemia type: other cause Other causes of anemia: chronic disease, other Qualified Code(s): D63.8 - Anemia in other chronic diseases classified elsewhere Code(s): D64.9 - Anemia, unspecified Status: Acute Assessment and Plan: Multifactorial most likely acute worsening of chronic anemia associated with acute blood loss anemia multifactorial secondary to bleeding from lower extremity ulcer and probable GI bleed secondary to moderate to severe gastritis management as above (4) CKD (chronic kidney disease) stage 3, GFR 30-59 ml/min: Code(s): N18.30 - Chronic kidney disease, stage 3 unspecified Status: Acute Assessment and Plan: Stable avoid nephrotoxic medication (5) HTN (hypertension): Qualifiers: Hypertension type: essential hypertension Qualified Code(s): I10 - Essential (primary) hypertension Code(s): I10 - Essential (primary) hypertension Status: Chronic Assessment and Plan: Blood pressure on the lower side monitor closely Blood pressure on the lower side hold IV Lasix (6) Diabetes mellitus: Qualifiers: Diabetes mellitus type: type 2 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 Diabetes mellitus complication status: without complication Qualified Code(s): E11.9 - Type 2 diabetes mellitus without complications; Z79.4 - half-way (current) use of insulin Code(s): E11.9 - Type 2 diabetes mellitus without complications Status: Chronic Assessment and Plan: Insulin sliding scale Lantus (7) CHF (congestive heart failure): Qualifiers: Heart failure type: unspecified Heart failure chronicity: unspecified Qualified Code(s): I50.9 - Heart failure, unspecified Code(s): I50.9 - Heart failure, unspecified Status: Chronic Assessment and Plan: Most likely acute on top of chronic diastolic CHF exacerbation developed during hospitalization associated with acute on top of chronic hypoxemic respiratory failure continue oxygen Patient short of breath today Chest x-ray shows cardiomegaly DC IV fluid Hold IV Lasix pending cardiology evaluation Wean off oxygen (8) Atrial fibrillation: Qualifiers: Atrial fibrillation type: unspecified Qualified Code(s): I48.91 - Unspecified atrial fibrillation Code(s): I48.91 - Unspecified atrial fibrillation Status: Chronic Assessment and Plan: Status post pacemaker placement patient on aspirin hold aspirin due to GI bleed will resume once okay with GI probably in a.m. (9) Dehydration: Code(s): E86.0 - Dehydration Status: Acute Assessment and Plan: Resolved DC IV fluid (10) Acute hypoxemic respiratory failure: Code(s): J96.01 - Acute respiratory failure with hypoxia Status: Acute
[2021-11-10 20:07] LABS: Glucose Point of Care 141 mg/dl (65-105)
[2021-11-10] MEDS: carvediloL 6.25 MG TABLET PO (21:56)
[2021-11-10] MEDS: rOPINIRole HCL 0.5 MG TABLET PO (21:56)
[2021-11-10] MEDS: GABAPENTIN 300 MG CAPSULE PO (21:56)
[2021-11-10] MEDS: ONDANSETRON INJ 4 MG/2 ML VIAL IV PUSH (22:11)
[2021-11-11] VITALS (22 sets, daily range): BP systolic 88–128; BP diastolic 52–78; PULSE 75–112; RESP 13–22; TEMP 35.8–36.4; O2SAT 95–100
[2021-11-11] MEDS: DOXYCYCLINE 100 MG/NS 100 ML 100 MG/100 ML BAG IVPB ×2 (03:25→16:55)
[2021-11-11] MEDS: ACETAMINOPHEN 325 MG TABLET 650 MG PO ×2 (03:53→11:01)
[2021-11-11 04:46] LABS: Basophils Percent Auto 0.6 % (0.2-1.2); Eosinophils Absolute Auto 0.2 K/mm3 (0-0.3); Hematocrit 27.2 % (42.0-52.0); Hemoglobin 8.5 g/dL (14.0-18.0); Immature Granulocyte Absolute 0.01 K/mm3 (0.00-0.031); Immature Granulocyte Percent A 0.2 % (0-0.5); Immature Platelet Fraction Pct 15.6 % (0.9-11.2); Lymphocytes Absolute Auto 0.97 K/mm3 (0.9-3.2); Lymphocytes Percent Auto 19.6 % (18.3-44.2); Mean Corpuscular HGB Conc 31.3 g/dl (32-36); Mean Corpuscular Hemoglobin 31.5 pg (26-34); Mean Corpuscular Volume 100.7 fl (80-100); Monocytes Absolute Auto 0.6 K/mm3 (0.1-0.6); Monocytes Percent Auto 12.1 % (2.6-8.5); Neutrophils Absolute Auto 3.2 K/mm3 (1.3-6.7); Neutrophils Percent Auto 64.5 % (45.5-73.1); Nucleated Red Blood Cells Perc 0.6 % (0.0-0.2); Platelet Count Result 63 k/mm3 (150-375); Red Cell Distribution Width 18.5 % (11.5-14.5)
[2021-11-11 04:55] LABS: Alanine Aminotransferase 15 U/L (6-50); Albumin Level 3.2 g/dL (3.5-5.1); Alkaline Phosphatase 200 U/L (38-126); Anion Gap 11 mmol/L (8-16); Aspartate Amino Transferase 30 U/L (17-59); Bilirubin,Total 1.3 mg/dL (0.2-1.3); Blood Urea Nitrogen 56 mg/dL (9-20); Calcium 7.3 mg/dL (8.4-10.2); Carbon Dioxide 22 mmol/L (22-30); Chloride 101 mmol/L (98-107); Estimated CRCL calculation 31 ml/min; Estimated Glomerular Filt Rate 30; Glucose 110 mg/dL (65-110); Magnesium 2.5 mg/dL (1.6-2.3); Potassium 4.8 mmol/L (3.4-5.0); Sodium 134 mmol/L (137-145)
[2021-11-11 05:16] LABS: Macrocytosis 1+ (NORMAL); Platelet Estimate Decreased (Adequate)
[2021-11-11 10:20] LABS: Hematocrit 26.9 % (42.0-52.0); Hemoglobin 8.1 g/dL (14.0-18.0)
[2021-11-11] MEDS: PREGABALIN (*CRX) 75 MG CAPSULE 225 MG PO (10:51)
[2021-11-11] MEDS: MAGNESIUM 27 MG TABLET (500 MG MAG GLUCONATE) PO (10:52)
[2021-11-11] MEDS: FINASTERIDE 5 MG TABLET PO (10:52)
[2021-11-11] MEDS: FERROUS SULFATE 324 MG TABLET PO (10:52)
[2021-11-11] MEDS: allopurinoL 100 MG TABLET PO (10:52)
[2021-11-11] MEDS: DULoxetine HCL 20 MG CAPSULE.DR PO (10:52)
[2021-11-11] MEDS: DULoxetine HCL 30 MG CAPSULE.DR PO (10:52)
[2021-11-11] MEDS: TAMSULOSIN HCL 0.4 MG CAPSULE PO (10:52)
[2021-11-11] MEDS: MIDODRINE HCL 2.5 MG TABLET 5 MG PO ×2 (10:52→14:12)
[2021-11-11] MEDS: PARoxetine 20 MG TABLET PO (10:52)
[2021-11-11] MEDS: MULTIVITAMINS THERAPEUTIC TAB (*BKC) 1 TABLET PO (10:52)
[2021-11-11] MEDS: THIAMINE HCL 100 MG TABLET PO (10:52)
[2021-11-11] MEDS: LACTULOSE 20 GM/30 ML UDC PO (10:53)
[2021-11-11] MEDS: carvediloL 6.25 MG TABLET PO ×2 (10:53→21:59)
[2021-11-11] MEDS: EUCERIN CREAM 120 GM JAR 1 APPLIC TOPICAL (10:53)
[2021-11-11 12:13] LABS: Glucose Point of Care 110 mg/dl (65-105)
--- NOTE | 2021-11-11 14:11 | PCOTNOTE ---
Attempted OT evaluation, per RN patient just received lunch and to attempt at later time. Will follow.
[2021-11-11] MEDS: PANTOPRAZOLE SODIUM IV 40 MG VIAL IV PUSH ×2 (15:07→20:16)
--- NOTE | 2021-11-11 15:39 | PC.NURSE ---
Spoke with Dr. Samson, and advised patient had nonsustained supraventricular tachycardia, heart rate 155. Patient denied shortness breath, chest pain. Will continue to monitor closely.
[2021-11-11 16:41] LABS: Glucose Point of Care 119 mg/dl (65-105)
[2021-11-11] MEDS: ONDANSETRON INJ 4 MG/2 ML VIAL IV PUSH ×2 (16:55→21:59)
--- NOTE | 2021-11-11 17:17 | PM.IMPN ---
Progress Note: A&P Assessment and Plan (1) Open wound of right heel: Code(s): S91.301A - Unspecified open wound, right foot, initial encounter Status: Acute Assessment and Plan: Surgery consult probably associated with acute blood loss anemia hemostasis achieved associated with cellulitis continue IV antibiotics (2) Acute GI bleeding: Code(s): K92.2 - Gastrointestinal hemorrhage, unspecified Status: Acute Assessment and Plan: Positive occult blood GI consult Monitor H&H Protonix Status post EGD on 11/05/2021 showed esophageal ring moderate to severe gastritis continue PPI Avoid NSAID No antiplatelet/anticoagulation for couple weeks from time of endoscopy (3) Anemia: Qualifiers: Anemia type: other cause Other causes of anemia: chronic disease, other Qualified Code(s): D63.8 - Anemia in other chronic diseases classified elsewhere Code(s): D64.9 - Anemia, unspecified Status: Acute Assessment and Plan: Multifactorial most likely acute worsening of chronic anemia associated with acute blood loss anemia multifactorial secondary to bleeding from lower extremity ulcer and probable GI bleed secondary to moderate to severe gastritis management as above (4) CKD (chronic kidney disease) stage 3, GFR 30-59 ml/min: Code(s): N18.30 - Chronic kidney disease, stage 3 unspecified Status: Acute Assessment and Plan: Stable avoid nephrotoxic medication (5) HTN (hypertension): Qualifiers: Hypertension type: essential hypertension Qualified Code(s): I10 - Essential (primary) hypertension Code(s): I10 - Essential (primary) hypertension Status: Chronic Assessment and Plan: Blood pressure on the lower side monitor closely Blood pressure on the lower side hold IV Lasix (6) Diabetes mellitus: Qualifiers: Diabetes mellitus type: type 2 Diabetes mellitus adjunct faculty for medical terminology insulin use: with usp use Diabetes mellitus complication status: without complication Qualified Code(s): E11.9 - Type 2 diabetes mellitus without complications; Z79.4 - FCI (current) use of insulin Code(s): E11.9 - Type 2 diabetes mellitus without complications Status: Chronic Assessment and Plan: Insulin sliding scale Lantus (7) CHF (congestive heart failure): Qualifiers: Heart failure type: unspecified Heart failure chronicity: unspecified Qualified Code(s): I50.9 - Heart failure, unspecified Code(s): I50.9 - Heart failure, unspecified Status: Chronic Assessment and Plan: Most likely acute on top of chronic diastolic CHF exacerbation developed during hospitalization associated with acute on top of chronic hypoxemic respiratory failure continue oxygen Patient short of breath today Chest x-ray shows cardiomegaly DC IV fluid Hold IV Lasix pending cardiology evaluation Wean off oxygen (8) Atrial fibrillation: Qualifiers: Atrial fibrillation type: unspecified Qualified Code(s): I48.91 - Unspecified atrial fibrillation Code(s): I48.91 - Unspecified atrial fibrillation Status: Chronic Assessment and Plan: Status post pacemaker placement patient on aspirin hold aspirin due to GI bleed will resume once okay with GI probably in a.m. (9) Dehydration: Code(s): E86.0 - Dehydration Status: Acute Assessment and Plan: Resolved DC IV fluid (10) Acute hypoxemic respiratory failure: Code(s): J96.01 - Acute respiratory failure with hypoxia Status: Acute Assessment and Plan: Will get CT scan of the chest Will get V/Q scan rule out PE Probably related to CHF exacerbation (11) Encephalopathy: Code(s): G93.40 - Encephalopathy, unspecified Status: Acute Assessment and Plan: Check ammonia level Probably related to CHF exacerbation anemia and cellulitis (12) Cirrhosis: Code(s): K74.60 - Unspecified cirrhos
[2021-11-11 20:27] LABS: Glucose Point of Care 105 mg/dl (65-105)
[2021-11-11] MEDS: rOPINIRole HCL 0.5 MG TABLET PO (21:59)
[2021-11-11] MEDS: GABAPENTIN 300 MG CAPSULE PO (22:01)
[2021-11-12] VITALS (23 sets, daily range): BP systolic 79–107; BP diastolic 46–74; PULSE 68–77; RESP 16–22; TEMP 36.1–36.5; O2SAT 91–99
[2021-11-12] MEDS: DOXYCYCLINE 100 MG/NS 100 ML 100 MG/100 ML BAG IVPB ×2 (04:22→16:27)
--- NOTE | 2021-11-12 04:36 | PC.NURSE ---
Alerted by PCT that pt's blood pressure was 79/54 in the L arm laying on his R side. Pt refused to turn to back to reassess on either arm. Pt then kept attempting to grab RN's breast and buttocks during an attempt to occupational therapist aide an iv antibiotic. RN instructed pt not to do that again. Will reassess blood pressure.
[2021-11-12 05:19] LABS: Magnesium 2.3 mg/dL (1.6-2.3)
[2021-11-12 08:13] LABS: Glucose Point of Care 91 mg/dl (65-105)
[2021-11-12] MEDS: PREGABALIN (*CRX) 75 MG CAPSULE 225 MG PO ×2 (08:52→16:27)
[2021-11-12] MEDS: LACTULOSE 20 GM/30 ML UDC PO ×2 (08:52→16:27)
[2021-11-12] MEDS: MIDODRINE HCL 2.5 MG TABLET 5 MG PO ×3 (08:52→16:27)
[2021-11-12] MEDS: PARoxetine 20 MG TABLET PO (08:53)
[2021-11-12] MEDS: FINASTERIDE 5 MG TABLET PO (08:53)
[2021-11-12] MEDS: THIAMINE HCL 100 MG TABLET PO (08:53)
[2021-11-12] MEDS: FERROUS SULFATE 324 MG TABLET PO ×2 (08:53→16:27)
[2021-11-12] MEDS: allopurinoL 100 MG TABLET PO (08:53)
[2021-11-12] MEDS: MAGNESIUM 27 MG TABLET (500 MG MAG GLUCONATE) PO (08:53)
[2021-11-12] MEDS: DULoxetine HCL 30 MG CAPSULE.DR PO (08:53)
[2021-11-12] MEDS: DULoxetine HCL 20 MG CAPSULE.DR PO (08:53)
[2021-11-12] MEDS: EUCERIN CREAM 120 GM JAR 1 APPLIC TOPICAL (08:53)
[2021-11-12] MEDS: TAMSULOSIN HCL 0.4 MG CAPSULE PO (08:54)
[2021-11-12] MEDS: MULTIVITAMINS THERAPEUTIC TAB (*BKC) 1 TABLET PO (08:54)
[2021-11-12] MEDS: PANTOPRAZOLE SODIUM IV 40 MG VIAL IV PUSH ×2 (08:54→21:10)
[2021-11-12 13:14] LABS: Glucose Point of Care 119 mg/dl (65-105)
[2021-11-12 16:15] LABS: Glucose Point of Care 116 mg/dl (65-105)
--- NOTE | 2021-11-12 17:11 | P.PNIM_ITS ---
Progress Note: A&P Assessment and Plan (1) Open wound of right heel: Code(s): S91.301A - Unspecified open wound, right foot, initial encounter Status: Acute Assessment and Plan: Surgery consult probably associated with acute blood loss anemia hemostasis achieved associated with cellulitis continue IV antibiotics (2) Acute GI bleeding: Code(s): K92.2 - Gastrointestinal hemorrhage, unspecified Status: Acute Assessment and Plan: Positive occult blood GI consult Monitor H&H Protonix Status post EGD on 11/05/2021 showed esophageal ring moderate to severe gastritis continue PPI Avoid NSAID No antiplatelet/anticoagulation for couple weeks from time of endoscopy (3) Anemia: Qualifiers: Anemia type: other cause Other causes of anemia: chronic disease, other Qualified Code(s): D63.8 - Anemia in other chronic diseases classified elsewhere Code(s): D64.9 - Anemia, unspecified Status: Acute Assessment and Plan: Multifactorial most likely acute worsening of chronic anemia associated with acute blood loss anemia multifactorial secondary to bleeding from lower extremity ulcer and probable GI bleed secondary to moderate to severe gastritis management as above (4) CKD (chronic kidney disease) stage 3, GFR 30-59 ml/min: Code(s): N18.30 - Chronic kidney disease, stage 3 unspecified Status: Acute Assessment and Plan: Stable avoid nephrotoxic medication (5) HTN (hypertension): Qualifiers: Hypertension type: essential hypertension Qualified Code(s): I10 - Essential (primary) hypertension Code(s): I10 - Essential (primary) hypertension Status: Chronic Assessment and Plan: Blood pressure on the lower side monitor closely Blood pressure on the lower side hold IV Lasix (6) Diabetes mellitus: Qualifiers: Diabetes mellitus type: type 2 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 Diabetes mellitus complication status: without complication Qualified Code(s): E11.9 - Type 2 diabetes mellitus without complications; Z79.4 - longterm (current) use of insulin Code(s): E11.9 - Type 2 diabetes mellitus without complications Status: Chronic Assessment and Plan: Insulin sliding scale Lantus (7) CHF (congestive heart failure): Qualifiers: Heart failure type: unspecified Heart failure chronicity: unspecified Qualified Code(s): I50.9 - Heart failure, unspecified Code(s): I50.9 - Heart failure, unspecified Status: Chronic Assessment and Plan: Most likely acute on top of chronic diastolic CHF exacerbation developed during hospitalization associated with acute on top of chronic hypoxemic respiratory failure continue oxygen Patient short of breath today Chest x-ray shows cardiomegaly DC IV fluid Hold IV Lasix pending cardiology evaluation Wean off oxygen (8) Atrial fibrillation: Qualifiers: Atrial fibrillation type: unspecified Qualified Code(s): I48.91 - Unspecified atrial fibrillation Code(s): I48.91 - Unspecified atrial fibrillation Status: Chronic Assessment and Plan: Status post pacemaker placement patient on aspirin hold aspirin due to GI bleed will resume once okay with GI probably in a.m. (9) Dehydration: Code(s): E86.0 - Dehydration Status: Acute Assessment and Plan: Resolved DC IV fluid (10) Acute hypoxemic respiratory failure: Code(s): J96.01 - Acute respiratory failure with hypoxia Status: Acute
[2021-11-12] MEDS: ONDANSETRON INJ 4 MG/2 ML VIAL IV PUSH (19:37)
[2021-11-12 20:41] LABS: Glucose Point of Care 113 mg/dl (65-105)
[2021-11-12] MEDS: ACETAMINOPHEN 325 MG TABLET 650 MG PO (21:10)
[2021-11-12] MEDS: GABAPENTIN 300 MG CAPSULE PO (21:10)
[2021-11-12] MEDS: rOPINIRole HCL 0.5 MG TABLET PO (21:11)
[2021-11-13] VITALS (17 sets, daily range): BP systolic 90–101; BP diastolic 59–77; PULSE 70–78; RESP 18–20; TEMP 36.3–36.8; O2SAT 94–100
[2021-11-13] MEDS: DOXYCYCLINE 100 MG/NS 100 ML 100 MG/100 ML BAG IVPB ×2 (04:18→16:53)
[2021-11-13 05:53] LABS: Hematocrit 25.5 % (42.0-52.0); Hemoglobin 8.2 g/dL (14.0-18.0); Immature Platelet Fraction Pct 14.8 % (0.9-11.2); Mean Corpuscular HGB Conc 32.2 g/dl (32-36); Mean Corpuscular Hemoglobin 31.7 pg (26-34); Mean Corpuscular Volume 98.5 fl (80-100); Mean Platelet Volume 14.1 fl (7.4-10.4); Platelet Count Result 66 k/mm3 (150-375); Red Blood Count 2.59 M/mm3 (4.6-6.20); Red Cell Distribution Width 17.9 % (11.5-14.5); White Blood Count 5.3 K/mm3 (4.5-10.0)
[2021-11-13 06:06] LABS: Anion Gap 9 mmol/L (8-16); Blood Urea Nitrogen 59 mg/dL (9-20); Calcium 7.5 mg/dL (8.4-10.2); Carbon Dioxide 22 mmol/L (22-30); Chloride 102 mmol/L (98-107); Estimated CRCL calculation 34 ml/min; Estimated Glomerular Filt Rate 29; Glucose 104 mg/dL (65-110); Magnesium 2.4 mg/dL (1.6-2.3); Potassium 5.2 mmol/L (3.4-5.0); Sodium 133 mmol/L (137-145)
[2021-11-13 08:11] LABS: Glucose Point of Care 101 mg/dl (65-105)
[2021-11-13] MEDS: allopurinoL 100 MG TABLET PO (08:49)
[2021-11-13] MEDS: FERROUS SULFATE 324 MG TABLET PO ×2 (08:50→17:32)
[2021-11-13] MEDS: TAMSULOSIN HCL 0.4 MG CAPSULE PO (08:51)
[2021-11-13] MEDS: MULTIVITAMINS THERAPEUTIC TAB (*BKC) 1 TABLET PO (08:51)
[2021-11-13] MEDS: FINASTERIDE 5 MG TABLET PO (08:51)
[2021-11-13] MEDS: LACTULOSE 20 GM/30 ML UDC PO ×2 (08:52→17:32)
[2021-11-13] MEDS: DULoxetine HCL 30 MG CAPSULE.DR PO (08:52)
[2021-11-13] MEDS: PARoxetine 20 MG TABLET PO (08:52)
[2021-11-13] MEDS: THIAMINE HCL 100 MG TABLET PO (08:52)
[2021-11-13] MEDS: DULoxetine HCL 20 MG CAPSULE.DR PO (08:53)
[2021-11-13] MEDS: MAGNESIUM 27 MG TABLET (500 MG MAG GLUCONATE) PO (08:53)
[2021-11-13] MEDS: PANTOPRAZOLE SODIUM IV 40 MG VIAL IV PUSH ×2 (08:53→22:03)
[2021-11-13] MEDS: PREGABALIN (*CRX) 75 MG CAPSULE 225 MG PO ×2 (09:04→17:33)
[2021-11-13] MEDS: MIDODRINE HCL 2.5 MG TABLET 5 MG PO ×3 (09:04→17:32)
--- NOTE | 2021-11-13 09:52 | PC.NURSE ---
Asked Dr. Canales about patient's Coreg dose. In Dr. Cruz's notes it mentions cutting Coreg from 6.5 to 3.125 due to low blood pressure. Also showed Dr. Canales patient's 6-beat run of V-tach at 0902. Dr. Canales told this nurse to go ahead and cut the Coreg to 3.125.
[2021-11-13 11:46] LABS: Glucose Point of Care 123 mg/dl (65-105)
[2021-11-13] MEDS: ONDANSETRON INJ 4 MG/2 ML VIAL IV PUSH (12:06)
--- NOTE | 2021-11-13 13:46 | PM.IMPN ---
Progress Note: A&P Assessment and Plan (1) Open wound of right heel: Code(s): S91.301A - Unspecified open wound, right foot, initial encounter Status: Acute Assessment and Plan: Surgery consult probably associated with acute blood loss anemia hemostasis achieved associated with cellulitis continue IV antibiotics (2) Acute GI bleeding: Code(s): K92.2 - Gastrointestinal hemorrhage, unspecified Status: Acute Assessment and Plan: Positive occult blood GI consult Monitor H&H Protonix Status post EGD on 11/05/2021 showed esophageal ring moderate to severe gastritis continue PPI Avoid NSAID No antiplatelet/anticoagulation for couple weeks from time of endoscopy (3) Anemia: Qualifiers: Anemia type: other cause Other causes of anemia: chronic disease, other Qualified Code(s): D63.8 - Anemia in other chronic diseases classified elsewhere Code(s): D64.9 - Anemia, unspecified Status: Acute Assessment and Plan: Multifactorial most likely acute worsening of chronic anemia associated with acute blood loss anemia multifactorial secondary to bleeding from lower extremity ulcer and probable GI bleed secondary to moderate to severe gastritis management as above (4) CKD (chronic kidney disease) stage 3, GFR 30-59 ml/min: Code(s): N18.30 - Chronic kidney disease, stage 3 unspecified Status: Acute Assessment and Plan: Stable avoid nephrotoxic medication (5) HTN (hypertension): Qualifiers: Hypertension type: essential hypertension Qualified Code(s): I10 - Essential (primary) hypertension Code(s): I10 - Essential (primary) hypertension Status: Chronic Assessment and Plan: Blood pressure on the lower side monitor closely Blood pressure on the lower side hold IV Lasix (6) Diabetes mellitus: Qualifiers: Diabetes mellitus type: type 2 Diabetes mellitus exterminator insulin use: with fdc use Diabetes mellitus complication status: without complication Qualified Code(s): E11.9 - Type 2 diabetes mellitus without complications; Z79.4 - jail (current) use of insulin Code(s): E11.9 - Type 2 diabetes mellitus without complications Status: Chronic Assessment and Plan: Insulin sliding scale Lantus (7) CHF (congestive heart failure): Qualifiers: Heart failure type: unspecified Heart failure chronicity: unspecified Qualified Code(s): I50.9 - Heart failure, unspecified Code(s): I50.9 - Heart failure, unspecified Status: Chronic Assessment and Plan: Most likely acute on top of chronic diastolic CHF exacerbation developed during hospitalization associated with acute on top of chronic hypoxemic respiratory failure continue oxygen Patient short of breath today Chest x-ray shows cardiomegaly DC IV fluid Hold IV Lasix pending cardiology evaluation Wean off oxygen (8) Atrial fibrillation: Qualifiers: Atrial fibrillation type: unspecified Qualified Code(s): I48.91 - Unspecified atrial fibrillation Code(s): I48.91 - Unspecified atrial fibrillation Status: Chronic Assessment and Plan: Status post pacemaker placement patient on aspirin hold aspirin due to GI bleed will resume once okay with GI probably in a.m. (9) Dehydration: Code(s): E86.0 - Dehydration Status: Acute Assessment and Plan: Resolved DC IV fluid (10) Acute hypoxemic respiratory failure: Code(s): J96.01 - Acute respiratory failure with hypoxia Status: Acute Assessment and Plan: Will get CT scan of the chest Will get V/Q scan rule out PE Probably related to CHF exacerbation (11) Encephalopathy: Code(s): G93.40 - Encephalopathy, unspecified Status: Acute Assessment and Plan: Check ammonia level Probably related to CHF exacerbation anemia and cellulitis (12) Cirrhosis: Code(s): K74.60 - Unspecified cirrhos
[2021-11-13] MEDS: EUCERIN CREAM 120 GM JAR 1 APPLIC TOPICAL (16:53)
[2021-11-13 16:59] LABS: Glucose Point of Care 118 mg/dl (65-105)
[2021-11-13] MEDS: carvediloL 3.125 MG TABLET PO (17:32)
--- NOTE | 2021-11-13 21:50 | ADMGEN ---
This patient, Clark Montes De Oca, was admitted to [facility] S[facility] Room 311-01 from IMU at 18:50. Patient/family oriented to hospital policies and general routines including ID bracelet, bed and alarms, visiting hours, pain management, procedures, bathroom and other care routines, personal items, smoking policy, room service/diet, and visiting hours. Information on how to activate the Rapid Response Team has been discussed. Patient/Family are encouraged to report perceived risks to care and to ask questions if they do not understand what they are told or what they should do.
[2021-11-13] MEDS: rOPINIRole HCL 0.5 MG TABLET PO (22:02)
[2021-11-13] MEDS: GABAPENTIN 300 MG CAPSULE PO (22:02)
[2021-11-13 23:28] LABS: Glucose Point of Care 116 mg/dl (65-105)
[2021-11-14] VITALS (14 sets, daily range): BP systolic 97–150; BP diastolic 65–71; PULSE 40–82; RESP 14–18; TEMP 36.2–36.7; O2SAT 91–98
[2021-11-14] MEDS: DOXYCYCLINE 100 MG/NS 100 ML 100 MG/100 ML BAG IVPB ×2 (04:51→17:11)
[2021-11-14 07:55] LABS: Glucose Point of Care 98 mg/dl (65-105)
[2021-11-14 08:08] LABS: Hematocrit 25.8 % (42.0-52.0); Immature Platelet Fraction Pct 16.3 % (0.9-11.2); Mean Corpuscular Hemoglobin 31.4 pg (26-34); Mean Corpuscular Volume 101.2 fl (80-100); Mean Platelet Volume 14.1 fl (7.4-10.4); Platelet Count Result 57 k/mm3 (150-375); Red Blood Count 2.55 M/mm3 (4.6-6.20); White Blood Count 4.3 K/mm3 (4.5-10.0)
[2021-11-14 08:09] LABS: Anion Gap 5 mmol/L (8-16); Blood Urea Nitrogen 61 mg/dL (9-20); Calcium 7.4 mg/dL (8.4-10.2); Carbon Dioxide 27 mmol/L (22-30); Chloride 101 mmol/L (98-107); Estimated CRCL calculation 36 ml/min; Estimated Glomerular Filt Rate 32; Glucose 90 mg/dL (65-110); Magnesium 2.3 mg/dL (1.6-2.3); Potassium 4.9 mmol/L (3.4-5.0); Sodium 133 mmol/L (137-145)
[2021-11-14] MEDS: MIDODRINE HCL 2.5 MG TABLET 5 MG PO ×3 (08:42→17:13)
[2021-11-14] MEDS: THIAMINE HCL 100 MG TABLET PO (08:42)
[2021-11-14] MEDS: MAGNESIUM 27 MG TABLET (500 MG MAG GLUCONATE) PO (08:42)
[2021-11-14] MEDS: TAMSULOSIN HCL 0.4 MG CAPSULE PO (08:42)
[2021-11-14] MEDS: FERROUS SULFATE 324 MG TABLET PO ×2 (08:43→17:14)
[2021-11-14] MEDS: carvediloL 3.125 MG TABLET PO ×2 (08:43→17:14)
[2021-11-14] MEDS: allopurinoL 100 MG TABLET PO (08:43)
[2021-11-14] MEDS: DULoxetine HCL 30 MG CAPSULE.DR PO (08:43)
[2021-11-14] MEDS: MULTIVITAMINS THERAPEUTIC TAB (*BKC) 1 TABLET PO (08:43)
[2021-11-14] MEDS: PREGABALIN (*CRX) 75 MG CAPSULE 225 MG PO ×2 (08:44→17:15)
[2021-11-14] MEDS: FINASTERIDE 5 MG TABLET PO (08:44)
[2021-11-14] MEDS: EUCERIN CREAM 120 GM JAR 1 APPLIC TOPICAL (08:44)
[2021-11-14] MEDS: DULoxetine HCL 20 MG CAPSULE.DR PO (08:44)
[2021-11-14] MEDS: PANTOPRAZOLE SODIUM IV 40 MG VIAL IV PUSH ×2 (08:44→22:27)
[2021-11-14] MEDS: LACTULOSE 20 GM/30 ML UDC PO ×2 (08:44→17:13)
[2021-11-14] MEDS: PARoxetine 20 MG TABLET PO (08:44)
[2021-11-14 11:36] LABS: Glucose Point of Care 124 mg/dl (65-105)
[2021-11-14] MEDS: LACTIC ACID 12% LOTION 225 BTL 1 APPLIC TOPICAL (12:13)
[2021-11-14] MEDS: FUROSEMIDE 80 MG TABLET PO (12:13)
[2021-11-14] MEDS: ASPIRIN 81 MG ENTERIC TABLET PO (12:13)
--- NOTE | 2021-11-14 12:59 | PCPTNOTE ---
Patient refused treatment this session due to stating he is just to tired & it's Monday.
--- NOTE | 2021-11-14 13:03 | PM.IMPN ---
Progress Note: A&P Assessment and Plan (1) Open wound of right heel: Code(s): S91.301A - Unspecified open wound, right foot, initial encounter Status: Acute Assessment and Plan: Surgery consult probably associated with acute blood loss anemia hemostasis achieved associated with cellulitis continue IV antibiotics (2) Acute GI bleeding: Code(s): K92.2 - Gastrointestinal hemorrhage, unspecified Status: Acute Assessment and Plan: Positive occult blood GI consult Monitor H&H Protonix Status post EGD on 11/05/2021 showed esophageal ring moderate to severe gastritis continue PPI Avoid NSAID No antiplatelet/anticoagulation for couple weeks from time of endoscopy (3) Anemia: Qualifiers: Anemia type: other cause Other causes of anemia: chronic disease, other Qualified Code(s): D63.8 - Anemia in other chronic diseases classified elsewhere Code(s): D64.9 - Anemia, unspecified Status: Acute Assessment and Plan: Multifactorial most likely acute worsening of chronic anemia associated with acute blood loss anemia multifactorial secondary to bleeding from lower extremity ulcer and probable GI bleed secondary to moderate to severe gastritis management as above (4) CKD (chronic kidney disease) stage 3, GFR 30-59 ml/min: Code(s): N18.30 - Chronic kidney disease, stage 3 unspecified Status: Acute Assessment and Plan: Stable avoid nephrotoxic medication (5) HTN (hypertension): Qualifiers: Hypertension type: essential hypertension Qualified Code(s): I10 - Essential (primary) hypertension Code(s): I10 - Essential (primary) hypertension Status: Chronic Assessment and Plan: Blood pressure on the lower side monitor closely Blood pressure on the lower side hold IV Lasix (6) Diabetes mellitus: Qualifiers: Diabetes mellitus type: type 2 Diabetes mellitus ferry terminal agent insulin use: with skilled nursing use Diabetes mellitus complication status: without complication Qualified Code(s): E11.9 - Type 2 diabetes mellitus without complications; Z79.4 - longterm (current) use of insulin Code(s): E11.9 - Type 2 diabetes mellitus without complications Status: Chronic Assessment and Plan: Insulin sliding scale Lantus (7) CHF (congestive heart failure): Qualifiers: Heart failure type: unspecified Heart failure chronicity: unspecified Qualified Code(s): I50.9 - Heart failure, unspecified Code(s): I50.9 - Heart failure, unspecified Status: Chronic Assessment and Plan: Most likely acute on top of chronic diastolic CHF exacerbation developed during hospitalization associated with acute on top of chronic hypoxemic respiratory failure continue oxygen Patient short of breath today Chest x-ray shows cardiomegaly DC IV fluid Hold IV Lasix pending cardiology evaluation Wean off oxygen (8) Atrial fibrillation: Qualifiers: Atrial fibrillation type: unspecified Qualified Code(s): I48.91 - Unspecified atrial fibrillation Code(s): I48.91 - Unspecified atrial fibrillation Status: Chronic Assessment and Plan: Status post pacemaker placement patient on aspirin hold aspirin due to GI bleed will resume once okay with GI probably in a.m. (9) Dehydration: Code(s): E86.0 - Dehydration Status: Acute Assessment and Plan: Resolved DC IV fluid (10) Acute hypoxemic respiratory failure: Code(s): J96.01 - Acute respiratory failure with hypoxia Status: Acute Assessment and Plan: Will get CT scan of the chest Will get V/Q scan rule out PE Probably related to CHF exacerbation (11) Encephalopathy: Code(s): G93.40 - Encephalopathy, unspecified Status: Acute Assessment and Plan: Check ammonia level Probably related to CHF exacerbation anemia and cellulitis (12) Cirrhosis: Code(s): K74.60 - Unspecified cirrhos
[2021-11-14 16:51] LABS: Glucose Point of Care 106 mg/dl (65-105)
[2021-11-14 21:20] LABS: Glucose Point of Care 102 mg/dl (65-105)
[2021-11-14] MEDS: GABAPENTIN 300 MG CAPSULE PO (22:27)
[2021-11-14] MEDS: rOPINIRole HCL 0.5 MG TABLET PO (22:27)
[2021-11-15] VITALS (9 sets, daily range): BP systolic 96–98; BP diastolic 60–64; PULSE 75–95; RESP 16; TEMP 36.1–36.8; O2SAT 94–100
[2021-11-15] MEDS: DOXYCYCLINE 100 MG/NS 100 ML 100 MG/100 ML BAG IVPB (05:11)
[2021-11-15 06:36] LABS: Hemoglobin 8.2 g/dL (14.0-18.0); Mean Corpuscular HGB Conc 30.4 g/dl (32-36); Mean Corpuscular Hemoglobin 30.9 pg (26-34); Mean Corpuscular Volume 101.9 fl (80-100); Platelet Count Result 67 k/mm3 (150-375); Red Blood Count 2.65 M/mm3 (4.6-6.20); Red Cell Distribution Width 17.9 % (11.5-14.5)
[2021-11-15 06:44] LABS: Anion Gap 5 mmol/L (8-16); Blood Urea Nitrogen 59 mg/dL (9-20); Calcium 7.2 mg/dL (8.4-10.2); Carbon Dioxide 27 mmol/L (22-30); Chloride 101 mmol/L (98-107); Estimated CRCL calculation 36 ml/min; Estimated Glomerular Filt Rate 32; Glucose 97 mg/dL (65-110); Magnesium 2.4 mg/dL (1.6-2.3); Potassium 4.5 mmol/L (3.4-5.0); Sodium 133 mmol/L (137-145)
[2021-11-15 07:34] LABS: Glucose Point of Care 109 mg/dl (65-105)
[2021-11-15] MEDS: LACTULOSE 20 GM/30 ML UDC PO ×2 (08:57→17:07)
[2021-11-15] MEDS: PANTOPRAZOLE SODIUM IV 40 MG VIAL IV PUSH (08:57)
[2021-11-15] MEDS: MIDODRINE HCL 2.5 MG TABLET 5 MG PO ×2 (09:00→17:07)
[2021-11-15] MEDS: FERROUS SULFATE 324 MG TABLET PO ×2 (09:00→17:07)
[2021-11-15] MEDS: allopurinoL 100 MG TABLET PO (09:00)
[2021-11-15] MEDS: THIAMINE HCL 100 MG TABLET PO (09:00)
[2021-11-15] MEDS: DULoxetine HCL 20 MG CAPSULE.DR PO (09:00)
[2021-11-15] MEDS: carvediloL 3.125 MG TABLET PO ×2 (09:01→17:07)
[2021-11-15] MEDS: FINASTERIDE 5 MG TABLET PO (09:01)
[2021-11-15] MEDS: MULTIVITAMINS THERAPEUTIC TAB (*BKC) 1 TABLET PO (09:01)
[2021-11-15] MEDS: ASPIRIN 81 MG ENTERIC TABLET PO (09:01)
[2021-11-15] MEDS: PARoxetine 20 MG TABLET PO (09:01)
[2021-11-15] MEDS: TAMSULOSIN HCL 0.4 MG CAPSULE PO (09:01)
[2021-11-15] MEDS: PREGABALIN (*CRX) 75 MG CAPSULE 225 MG PO ×2 (09:02→17:07)
[2021-11-15] MEDS: FUROSEMIDE 80 MG TABLET PO (09:02)
[2021-11-15] MEDS: MAGNESIUM 27 MG TABLET (500 MG MAG GLUCONATE) PO (09:02)
[2021-11-15] MEDS: DULoxetine HCL 30 MG CAPSULE.DR PO (09:02)
[2021-11-15] MEDS: EUCERIN CREAM 120 GM JAR 1 APPLIC TOPICAL (09:03)
[2021-11-15] MEDS: LACTIC ACID 12% LOTION 225 BTL 1 APPLIC TOPICAL (09:03)
[2021-11-15 09:26] LABS: INR 1.8; Partial Thromboplastin Time 40.2 SECONDS (22.3-36.8); Prothrombin Time 20.4 Seconds (11.1-14.7)
--- NOTE | 2021-11-15 11:29 | PCPTNOTE ---
Patient refused treatment this session stating he will have a procedure today and then discharge home.
[2021-11-15 11:51] LABS: Glucose Point of Care 100 mg/dl (65-105)
--- NOTE | 2021-11-15 13:14 | PCOTNOTE ---
Attempted to see patient this pm, however patient off floor at this time for testing/procedure.
[2021-11-15 13:55] LABS: EDCOVIDSCREEN Negative (Negative)
--- NOTE | 2021-11-15 15:54 | PM.DS ---
DS: Admitting Diagnosis Discharge Date 11/15/2021 Admitting Diagnosis lower extremity wound DS: Discharge Diagnosis Discharge Diagnosis (1) Open wound of right heel: Code(s): S91.301A - Unspecified open wound, right foot, initial encounter Status: Acute Assessment and Plan: Surgery consult probably associated with acute blood loss anemia hemostasis achieved associated with cellulitis continue IV antibiotics (2) Acute GI bleeding: Code(s): K92.2 - Gastrointestinal hemorrhage, unspecified Status: Acute Assessment and Plan: Positive occult blood GI consult Monitor H&H Protonix Status post EGD on 11/05/2021 showed esophageal ring moderate to severe gastritis continue PPI Avoid NSAID No antiplatelet/anticoagulation for couple weeks from time of endoscopy (3) Anemia: Qualifiers: Anemia type: other cause Other causes of anemia: chronic disease, other Qualified Code(s): D63.8 - Anemia in other chronic diseases classified elsewhere Code(s): D64.9 - Anemia, unspecified Status: Acute Assessment and Plan: Multifactorial most likely acute worsening of chronic anemia associated with acute blood loss anemia multifactorial secondary to bleeding from lower extremity ulcer and probable GI bleed secondary to moderate to severe gastritis management as above (4) CKD (chronic kidney disease) stage 3, GFR 30-59 ml/min: Code(s): N18.30 - Chronic kidney disease, stage 3 unspecified Status: Acute Assessment and Plan: Stable avoid nephrotoxic medication (5) HTN (hypertension): Qualifiers: Hypertension type: essential hypertension Qualified Code(s): I10 - Essential (primary) hypertension Code(s): I10 - Essential (primary) hypertension Status: Chronic Assessment and Plan: Blood pressure on the lower side monitor closely Blood pressure on the lower side hold IV Lasix (6) Diabetes mellitus: Qualifiers: Diabetes mellitus complication status: without complication Diabetes mellitus half-way insulin use: with half-way use Diabetes mellitus type: type 2 Qualified Code(s): E11.9 - Type 2 diabetes mellitus without complications; Z79.4 - buttermaker continuous churn (current) use of insulin Code(s): E11.9 - Type 2 diabetes mellitus without complications Status: Chronic Assessment and Plan: Insulin sliding scale Lantus (7) CHF (congestive heart failure): Qualifiers: Heart failure chronicity: unspecified Heart failure type: unspecified Qualified Code(s): I50.9 - Heart failure, unspecified Code(s): I50.9 - Heart failure, unspecified Status: Chronic Assessment and Plan: Most likely acute on top of chronic diastolic CHF exacerbation developed during hospitalization associated with acute on top of chronic hypoxemic respiratory failure continue oxygen Patient short of breath today Chest x-ray shows cardiomegaly DC IV fluid Hold IV Lasix pending cardiology evaluation Wean off oxygen (8) Atrial fibrillation: Qualifiers: Atrial fibrillation type: unspecified Qualified Code(s): I48.91 - Unspecified atrial fibrillation Code(s): I48.91 - Unspecified atrial fibrillation Status: Chronic Assessment and Plan: Status post pacemaker placement patient on aspirin hold aspirin due to GI bleed will resume once okay with GI probably in a.m. (9) Dehydration: Code(s): E86.0 - Dehydration Status: Acute Assessment and Plan: Resolved DC IV fluid (10) Acute hypoxemic respiratory failure: Code(s): J96.01 - Acute respiratory failure with hypoxia Status: Acute Assessment and Plan: Will get CT scan of the chest Will get V/Q scan rule out PE Probably related to CHF exacerbation (11) Encephalopathy: Code(s): G93.40 - Encephalopathy, unspecified Status: Acute Assessment and Plan: Check ammonia level Probably related
[2021-11-15 16:57] LABS: Glucose Point of Care 149 mg/dl (65-105)
== END 2021-11-15 19:30 | DRG 364 ==
LOC: ANHED 04:08 → ANHICU 07:13 → ANHIMU 11-05 10:10 → ANH3MEDSUR 11-15 15:50 → ANHIMU 11-16 10:24
PROVIDERS: Internal Medicine; Internal Medicine Gastroenterology; Internal Medicine Hematology & Oncology; Radiology Diagnostic Radiology; Admitting Provider Internal Medicine; Emergency Provider Emergency Medicine; PCP Internal Medicine; Visit Provider Family Medicine
PROC: 0DJ08ZZ Inspection of Upper Intestinal Tract, Via Natural or Artificial Opening Endoscopic (ICD-10-PCS; CPT 43235; principal; 2021-11-05 17:15)
DX: S81.811A Laceration without foreign body, right lower leg, initial encounter (principal); I50.33 Acute on chronic diastolic (congestive) heart failure; J96.21 Acute and chronic respiratory failure with hypoxia; E11.22 Type 2 diabetes mellitus with diabetic chronic kidney disease; N18.30 Chronic kidney disease, stage 3 unspecified; I12.9 Hypertensive chronic kidney disease with stage 1 through stage 4 chronic kidney disease, or unspecified chronic kidney disease; Y92.9 Unspecified place or not applicable; D69.3 Immune thrombocytopenic purpura; E11.42 Type 2 diabetes mellitus with diabetic polyneuropathy; E11.649 Type 2 diabetes mellitus with hypoglycemia without coma; K74.60 Unspecified cirrhosis of liver; Z20.822 Contact with and (suspected) exposure to COVID-19; X58.XXXA Exposure to other specified factors, initial encounter; Y93.9 Activity, unspecified; Y99.9 Unspecified external cause status; Z79.4 Long term (current) use of insulin; Z79.82 Long term (current) use of aspirin; Z95.0 Presence of cardiac pacemaker; I48.91 Unspecified atrial fibrillation; D62 Acute posthemorrhagic anemia; L03.119 Cellulitis of unspecified part of limb; E86.0 Dehydration; J18.9 Pneumonia, unspecified organism; G93.40 Encephalopathy, unspecified; I47.2 Ventricular tachycardia; K29.71 Gastritis, unspecified, with bleeding; I95.9 Hypotension, unspecified; K44.9 Diaphragmatic hernia without obstruction or gangrene; K22.2 Esophageal obstruction
CPT/HCPCS: 12001; 36415; 36430; 36600; 49083; 71045; 71250; 74018; 76705; 78580; 80048; 80053; 82104; 82140; 82375; 82390; 82607; 82728; 82746; 82805; 82948; 83036; 83050; 83520; 83540; 83550; 83605; 83735; 85014; 85018; 85025; 85027; 85055; 85610; 85730; 86038; 86850; 86900; 86901; 86920; 87040; 87426; 87502; 92610; 93005; 93306; 96361; 96365; 96366; 96368; 96372; 96375; 97110; 97161; 97165; 97530; 99285; A9270; A9540; C9113; C9803; G0378; G0379; J0692; J0696; J1815; J1940; J2370; J2405; J2704; J3430; J7030; J7050; J7060; J7120; P9016; Q5105; U0003; U0005

== ENCOUNTER 2021-11-21 05:58 | Emergency (ER) | payer OTHER, SELFPAY ==
[2021-11-21 05:59] VITALS: BP 96/71; PULSE 84; RESP 23; TEMP 36.8; O2SAT 100
[2021-11-21 06:50] LABS: INR 1.9; Prothrombin Time 20.8 Seconds (11.1-14.7)
[2021-11-21 06:51] LABS: Partial Thromboplastin Time 48.2 SECONDS (22.3-36.8)
[2021-11-21 06:52] LABS: Alanine Aminotransferase 14 U/L (6-50); Albumin Level 2.2 g/dL (3.5-5.1); Alkaline Phosphatase 191 U/L (38-126); Anion Gap 8 mmol/L (8-16); Aspartate Amino Transferase 34 U/L (17-59); Blood Urea Nitrogen 65 mg/dL (9-20); Calcium 6.8 mg/dL (8.4-10.2); Carbon Dioxide 28 mmol/L (22-30); Chloride 103 mmol/L (98-107); Estimated CRCL calculation 33 ml/min; Estimated Glomerular Filt Rate 33; Glucose 98 mg/dL (65-110); Potassium 4.4 mmol/L (3.4-5.0); Sodium 139 mmol/L (137-145)
[2021-11-21 07:03] LABS: Basophils Absolute Auto 0.1 K/mm3 (0.0-0.1); Basophils Percent Auto 1.3 % (0.2-1.2); Eosinophils Absolute Auto 0.2 K/mm3 (0-0.3); Eosinophils Percent Auto 4.5 % (0-4.4); Hematocrit 23.6 % (42.0-52.0); Hemoglobin 7.4 g/dL (14.0-18.0); Immature Granulocyte Absolute 0.02 K/mm3 (0.00-0.031); Immature Granulocyte Percent A 0.4 % (0-0.5); Lymphocytes Absolute Auto 0.68 K/mm3 (0.9-3.2); Lymphocytes Percent Auto 14.7 % (18.3-44.2); Mean Corpuscular HGB Conc 31.4 g/dl (32-36); Mean Corpuscular Hemoglobin 31.6 pg (26-34); Mean Corpuscular Volume 100.9 fl (80-100); Mean Platelet Volume 13.4 fl (7.4-10.4); Monocytes Absolute Auto 0.5 K/mm3 (0.1-0.6); Monocytes Percent Auto 10.6 % (2.6-8.5); Neutrophils Absolute Auto 3.2 K/mm3 (1.3-6.7); Neutrophils Percent Auto 68.5 % (45.5-73.1); Platelet Count Result 72 k/mm3 (150-375); Red Blood Count 2.34 M/mm3 (4.6-6.20); White Blood Count 4.6 K/mm3 (4.5-10.0)
--- NOTE | 2021-11-21 07:20 | ED.LOWEXIN ---
HPI - Extremity Injury (Lower) General Chief Complaint: Extremity Injury, Lower Stated Complaint: WOUND RT HEEL Time Seen by Provider: 11/21/21 06:20 Source: patient, EMS, RN notes reviewed and old records reviewed History of Present Illness HPI Narrative: Patient presents with wound to his right foot. Nursing facility found patient with a bleeding foot wound. Reported with significant wound bleeding they bandaged up and called EMS. Bleeding appeared to controlled by EMS. Patient is unsure how he injured his leg denies any pain fevers lightheadedness or dizziness. Related Data Home Medications Medication Instructions Recorded Confirmed aspirin 81 mg PO DAILY 11/07/20 11/04/21 multivitamin 1 tablet PO DAILY 11/07/20 11/04/21 thiamine HCl (vitamin B1) 100 mg PO DAILY 11/07/20 11/04/21 Lantus U-100 Insulin 5 unit SUBCUT HS 10/25/21 11/04/21 allopurinol 100 mg PO DAILY 10/25/21 11/04/21 ammonium lactate See Rx Instructions .ROUTE .COMPLEX 10/25/21 11/04/21 carvedilol 3.125 mg PO BID 10/25/21 11/04/21 duloxetine 50 mg PO DAILY 10/25/21 11/04/21 finasteride 5 mg PO DAILY 10/25/21 11/04/21 furosemide 80 mg PO DAILY 10/25/21 11/04/21 gabapentin 300 mg PO HS 10/25/21 11/04/21 isosorbide dinitrate 5 mg PO BID 10/25/21 11/04/21 lactulose [Enulose] 20 g PO BID 10/25/21 11/04/21 metolazone See Rx Instructions .ROUTE .COMPLEX 10/25/21 11/04/21 paroxetine HCl 20 mg PO DAILY 10/25/21 11/04/21 potassium chloride 20 meq PO DAILY 10/25/21 11/04/21 pregabalin 225 mg PO BID 10/25/21 11/04/21 ropinirole 0.5 mg PO HS 10/25/21 11/04/21 tamsulosin 0.4 mg PO DAILY 10/25/21 11/04/21 ferrous sulfate [Iron (ferrous 325 mg PO BID 11/04/21 11/04/21 sulfate)] magnesium gluconate 500 mg PO DAILY 11/04/21 11/04/21 Allergies Allergy/AdvReac Type Severity Reaction Status Date / Time No Known Allergies Allergy Verified 11/05/21 14:23 Review of Systems Review of Systems: CONSTITUTIONAL: Denies fever, chills, or sweats. EYES: Denies visual changes, redness, or discharge. ENT: Denies rhinorrhea, congestion, sore throat, or otalgia. CARDIOVASCULAR: Denies chest pain, palpitations, or edema. RESPIRATORY: Denies cough or dyspnea. GASTROINTESTINAL: Denies abdominal pain, nausea, vomiting, or diarrhea. GENITOURINARY: Denies dysuria or hematuria. SKIN: Denies rash or itching. MUSCULOSKELETAL: Denies back pain, joint pain, or myalgia. NEUROLOGIC: Denies headache, numbness, dizziness, or weakness. PSYCHIATRIC: Denies anxiety or depression. All systems reviewed & are unremarkable except as noted in HPI and below PMFSH Past Medical History Medical History Acute on chronic anemia Acute on chronic renal failure Atrial fibrillation Biventricular ICD (implantable cardioverter-defibrillator) in place Cardiomyopathy CHF (congestive heart failure) Chronic ITP (idiopathic thrombocytopenia) Cirrhosis CKD (chronic kidney disease) stage 3, GFR 30-59 ml/min Colon cancer screening Diabetes mellitus Erosive gastritis Heart failure with reduced ejection fraction History of abdominal paracentesis HTN (hypertension) Nonsustained ventricular tachycardia Occult blood in stools Pacemaker Surgical History Surgical History Surgical history unknown Family History Family History Mother Heart failure Social History Social History Social History: Patient resides at [facility] and rehab. The patient is listed as a full code. Smoking status: Never smoker Alcohol intake: never Substance use: never Gender identity (if verbalized by the patient): Male Sexual Orientation (if Verbalized by the Patient): Straight or Heterosexual Spiritual care concerns: No Exam Narrative: GENERAL: Well-appearing, well-nourished, and in no acute
[2021-11-21 07:29] VITALS: BP 101/69; PULSE 88; RESP 26; O2SAT 100
--- NOTE | 2021-11-21 08:13 | PC.NURSE ---
called [facility] twice for report and no answer.
[2021-11-21 09:04] VITALS: BP 105/68; PULSE 90; RESP 18; O2SAT 100
--- NOTE | 2021-11-21 09:45 | PC.NURSE ---
CHUCK Oliveira called for report on pt, updated on visit. Questions answered.
== END 2021-11-21 09:09 ==
PROVIDERS: Emergency Provider Emergency Medicine; PCP Internal Medicine
DX: T81.30XA Disruption of wound, unspecified, initial encounter (principal); I13.0 Hypertensive heart and chronic kidney disease with heart failure and stage 1 through stage 4 chronic kidney disease, or unspecified chronic kidney disease; E11.22 Type 2 diabetes mellitus with diabetic chronic kidney disease; N18.30 Chronic kidney disease, stage 3 unspecified; I48.91 Unspecified atrial fibrillation; Z79.82 Long term (current) use of aspirin
CPT/HCPCS: 36415; 80053; 85025; 85055; 85610; 85730; 99283

== ENCOUNTER 2021-12-21 23:47 | Emergency (ER) | payer OTHER, SELFPAY ==
--- NOTE | ~2021-12-21 | XR_ITS ---
EXAMINATION: XR chest 2V DATE: 12/22/2021 00:37 INDICATION: Chest pain. TECHNIQUE: Frontal and lateral views of the chest were obtained. COMPARISON: Chest single view 11/06/2021, chest CT 11/08/2021 FINDINGS: There are mild airspace opacities in the perihilar regions. No pleural effusion or pneumoth orax. Cardiomegaly is noted. There is a left chest pacer/defibrillator with leads in right atrium, ri ght ventricle, and coronary sinus. IMPRESSION: 1. Airspace opacities in the perihilar regions, consistent with mild pulmonary edema versus mild atel ectasis. 2. Cardiomegaly. Reviewed, dictated and finalized at location A. IMPRESSION: 1. Airspace opacities in the perihilar regions, consistent with mild pulmonary edema versus mild atelectasis. 2. Cardiomegaly.
[2021-12-21 23:45] VITALS: BP 87/50; PULSE 96; RESP 18; TEMP 36.5; O2SAT 98
--- NOTE | 2021-12-21 23:51 | ECG_ITS ---
Measurements Intervals [place] Rate: 108 P: 240 NH: 217 QRS: -33 QRSD: 176 T: 83 QT: 439 QTc: 589 Interpretive Statements ELECTRONIC VENTRICULAR PACEMAKER WITH PREMATURE VENTRICULAR CONTRACTIONS AND VENTRICULAR COUPLETS NO FURTHER INTERPRETATION POSSIBLE COMPARED TO ECG 11/07/2021 11:54:40 NO SIGNIFICANT CHANGES Electronically Signed On 12-22-2021 14:42:22 CDT by Bart Brunner M.D.
[2021-12-22] VITALS (15 sets, daily range): BP systolic 82–114; BP diastolic 54–99; PULSE 87–96; RESP 12–27; O2SAT 94–100
--- NOTE | 2021-12-22 00:11 | ED.RECABL ---
HPI - Recheck/Abnormal Lab/Rx General Chief Complaint: Recheck/Abnormal Lab/Rx <Ivory Zavala III, DO - Last Filed: 12/22/21 01:23> Stated Complaint: LLL Infilltrate, Abn Labs <Ivory Zavala III, DO - Last Filed: 12/22/21 01:23> Time Seen by Provider: 12/22/21 00:03 <Ivory Zavala III, DO - Last Filed: 12/22/21 01:23> History of Present Illness HPI narrative: Pt sent in for LLL infiltrate on his cxr outpatient and abnormal BUN and creatinine (Pt CRF patient). Pt denies SOB. Pt has liver failure and ascites, says abdomen swelling has been worse, tapped in October. Pt says he gets CP when he lays on left side. <Ivory Zavala III, DO - Last Filed: 12/22/21 01:23> Related Data Home Medications: Home Medications Medication Instructions Recorded Confirmed aspirin 81 mg tablet 81 mg PO DAILY 11/07/20 11/04/21 multivitamin 1 tablet PO DAILY 11/07/20 11/04/21 thiamine HCl (vitamin B1) 100 mg 100 mg PO DAILY 11/07/20 11/04/21 tablet allopurinol 100 mg tablet 100 mg PO DAILY 10/25/21 11/04/21 ammonium lactate 12 % lotion See Rx Instructions .Route .COMPLEX 10/25/21 11/04/21 carvedilol 3.125 mg tablet 3.125 mg PO BID 10/25/21 11/04/21 duloxetine 20 mg capsule,delayed 50 mg PO DAILY 10/25/21 11/04/21 release finasteride 5 mg tablet 5 mg PO DAILY 10/25/21 11/04/21 furosemide 80 mg tablet 80 mg PO DAILY 10/25/21 11/04/21 gabapentin 300 mg capsule 300 mg PO HS 10/25/21 11/04/21 insulin glargine 100 unit/mL 5 unit subcut HS 10/25/21 11/04/21 subcutaneous solution (Lantus U-100 Insulin) isosorbide dinitrate 5 mg tablet 5 mg PO BID 10/25/21 11/04/21 lactulose 10 gram/15 mL oral 20 g PO BID 10/25/21 11/04/21 solution (Enulose) metolazone 2.5 mg tablet See Rx Instructions .Route .COMPLEX 10/25/21 11/04/21 paroxetine HCl 20 mg tablet 20 mg PO DAILY 10/25/21 11/04/21 potassium chloride 20 mEq 20 meq PO DAILY 10/25/21 11/04/21 tablet,extended release(part/cryst) pregabalin 225 mg capsule 225 mg PO BID 10/25/21 11/04/21 ropinirole 0.5 mg tablet 0.5 mg PO HS 10/25/21 11/04/21 tamsulosin 0.4 mg capsule 0.4 mg PO DAILY 10/25/21 11/04/21 ferrous sulfate 325 mg (65 mg 325 mg PO BID 11/04/21 11/04/21 iron) tablet (Iron (ferrous sulfate)) magnesium gluconate 500 mg tablet 500 mg PO DAILY 11/04/21 11/04/21 <Ivory Zavala III, DO - Last Filed: 12/22/21 01:23> Allergies/Adverse Reactions: Allergies Allergy/AdvReac Type Severity Reaction Status Date / Time No Known Allergies Allergy Verified 11/05/21 14:23 <Ivory Zavala III, DO - Last Filed: 12/22/21 01:23> [facility] Past Medical History Medical History: Medical History Acute on chronic anemia Acute on chronic renal failure Atrial fibrillation Biventricular ICD (implantable cardioverter-defibrillator) in place Cardiomyopathy CHF (congestive heart failure) Chronic ITP (idiopathic thrombocytopenia) Cirrhosis CKD (chronic kidney disease) stage 3, GFR 30-59 ml/min Colon cancer screening Diabetes mellitus Erosive gastritis Heart failure with reduced ejection fraction History of abdominal paracentesis HTN (hypertension) Nonsustained ventricular tachycardia Occult blood in stools Pacemaker <Ivory Zavala III, DO - Last Filed: 12/22/21 01:23> Surgical History Surgical History: Surgical History Surgical history unknown <Ivory Zavala III, DO - Last Filed: 12/22/21 01:23> Family History Family History: Family History Mother Heart failure <Ivory Zavala III, DO - Last Filed: 12/22/21 01:23> Social History Social History: Social History Social History: Patient resides at [facility] and rehab. The patient is listed as a full code. Smoking status: Never smo
[2021-12-22 00:19] LABS: Basophils Percent Auto 0.5 % (0.2-1.2); Eosinophils Absolute Auto 0.2 K/mm3 (0-0.3); Eosinophils Percent Auto 3.7 % (0-4.4); Hematocrit 24.8 % (42.0-52.0); Hemoglobin 7.6 g/dL (14.0-18.0); Immature Granulocyte Absolute 0.01 K/mm3 (0.00-0.031); Immature Granulocyte Percent A 0.2 % (0-0.5); Immature Platelet Fraction Pct 15.1 % (0.9-11.2); Lymphocytes Absolute Auto 0.72 K/mm3 (0.9-3.2); Lymphocytes Percent Auto 17.9 % (18.3-44.2); Mean Corpuscular HGB Conc 30.6 g/dl (32-36); Mean Corpuscular Hemoglobin 31.5 pg (26-34); Mean Corpuscular Volume 102.9 fl (80-100); Mean Platelet Volume 13.6 fl (7.4-10.4); Monocytes Absolute Auto 0.4 K/mm3 (0.1-0.6); Monocytes Percent Auto 9.5 % (2.6-8.5); Neutrophils Absolute Auto 2.7 K/mm3 (1.3-6.7); Neutrophils Percent Auto 68.2 % (45.5-73.1); Nucleated Red Blood Cells Perc 0.5 % (0.0-0.2); Platelet Count Result 70 k/mm3 (150-375); Red Blood Count 2.41 M/mm3 (4.6-6.20); Red Cell Distribution Width 21.1 % (11.5-14.5)
[2021-12-22 00:21] LABS: Alanine Aminotransferase 19 U/L (6-50); Albumin Level 2.5 g/dL (3.5-5.1); Alkaline Phosphatase 190 U/L (38-126); Anion Gap 8 mmol/L (8-16); Aspartate Amino Transferase 31 U/L (17-59); Bilirubin,Total 0.9 mg/dL (0.2-1.3); Blood Urea Nitrogen 72 mg/dL (9-20); Calcium 6.9 mg/dL (8.4-10.2); Carbon Dioxide 26 mmol/L (22-30); Chloride 102 mmol/L (98-107); Estimated CRCL calculation 31 ml/min; Estimated Glomerular Filt Rate 32; Glucose 92 mg/dL (65-110); Potassium 4.1 mmol/L (3.4-5.0); Sodium 136 mmol/L (137-145)
[2021-12-22 00:42] LABS: INR 1.6; Prothrombin Time 18.3 Seconds (11.1-14.7)
[2021-12-22 00:43] LABS: Partial Thromboplastin Time 40.5 SECONDS (22.3-36.8)
[2021-12-22] MEDS: ONDANSETRON INJ 4 MG/2 ML VIAL IV PUSH (00:54)
[2021-12-22 01:13] LABS: Troponin I 0.048 ng/mL (0.000-0.034)
[2021-12-22 04:26] LABS: Troponin I 0.053 ng/mL (0.000-0.034)
--- NOTE | 2021-12-22 05:15 | PC.NURSE ---
This nurse gave report to a nurse at [facility] for pt. EMS to arrive to transport pt at approx [phone]
== END 2021-12-22 05:44 ==
PROVIDERS: Emergency Medicine; Emergency Provider Emergency Medicine; PCP Internal Medicine
DX: I13.0 Hypertensive heart and chronic kidney disease with heart failure and stage 1 through stage 4 chronic kidney disease, or unspecified chronic kidney disease (principal); N18.30 Chronic kidney disease, stage 3 unspecified; K72.90 Hepatic failure, unspecified without coma; E11.22 Type 2 diabetes mellitus with diabetic chronic kidney disease; I50.9 Heart failure, unspecified; D64.9 Anemia, unspecified; K74.60 Unspecified cirrhosis of liver; D69.3 Immune thrombocytopenic purpura; Z95.0 Presence of cardiac pacemaker; Z79.4 Long term (current) use of insulin; Z79.82 Long term (current) use of aspirin
CPT/HCPCS: 36415; 71046; 80053; 84484; 85025; 85055; 85610; 85730; 93005; 96374; 99284; J2405

== ENCOUNTER 2021-12-29 14:25 | Emergency (ER) | payer OTHER, SELFPAY ==
[2021-12-29] VITALS (18 sets, daily range): BP systolic 74–113; BP diastolic 44–91; PULSE 75–83; RESP 10–26; TEMP 36.1; O2SAT 97–100
--- NOTE | 2021-12-29 14:41 | ECG_ITS ---
Measurements Intervals [place] Rate: 85 P: 94 [place]: 88 QRS: -74 QRSD: 118 T: 104 QT: 418 QTc: 499 Interpretive Statements ELECTRONIC ATRIAL PACEMAKER LOW QRS VOLTAGE [QRS DEFLECTION < 0.5/1.0 mV IN LIMB/CHEST LEADS] COMPARED TO ECG 12/21/2021 23:54:05 NO SIGNIFICANT CHANGE Electronically Signed On 12-29-2021 22:48:44 CDT by Yamilka Javier M.D.
[2021-12-29] MEDS: DEXTROSE 50% 25 GM/50 ML SYRINGE IV PUSH (14:45)
[2021-12-29 15:15] LABS: Basophils Percent Auto 0.2 % (0.2-1.2); Eosinophils Percent Auto 0.4 % (0-4.4); Hematocrit 27.4 % (42.0-52.0); Hemoglobin 8.2 g/dL (14.0-18.0); Immature Granulocyte Absolute 0.03 K/mm3 (0.00-0.031); Immature Granulocyte Percent A 0.5 % (0-0.5); Immature Platelet Fraction Pct 16.4 % (0.9-11.2); Lymphocytes Absolute Auto 0.64 K/mm3 (0.9-3.2); Lymphocytes Percent Auto 11.4 % (18.3-44.2); Mean Corpuscular HGB Conc 29.9 g/dl (32-36); Mean Corpuscular Hemoglobin 30.9 pg (26-34); Mean Corpuscular Volume 103.4 fl (80-100); Mean Platelet Volume 14.1 fl (7.4-10.4); Monocytes Absolute Auto 0.5 K/mm3 (0.1-0.6); Monocytes Percent Auto 8.4 % (2.6-8.5); Neutrophils Absolute Auto 4.4 K/mm3 (1.3-6.7); Neutrophils Percent Auto 79.1 % (45.5-73.1); Nucleated Red Blood Cells Absolute Auto 0.1 K/mm3 (0.0-0.012); Nucleated Red Blood Cells Perc 1.6 % (0.0-0.2); Platelet Count Result 73 k/mm3 (150-375); Red Blood Count 2.65 M/mm3 (4.6-6.20); Red Cell Distribution Width 20.1 % (11.5-14.5); White Blood Count 5.6 K/mm3 (4.5-10.0)
[2021-12-29 15:16] LABS: Glucose Point of Care 30 mg/dl (65-105)
[2021-12-29 15:16] LABS: Glucose Point of Care 103 mg/dl (65-105)
[2021-12-29 15:23] LABS: Alanine Aminotransferase 20 U/L (6-50); Albumin Level 2.4 g/dL (3.5-5.1); Alkaline Phosphatase 186 U/L (38-126); Anion Gap 10 mmol/L (8-16); Aspartate Amino Transferase 39 U/L (17-59); Bilirubin,Total 1.4 mg/dL (0.2-1.3); Blood Urea Nitrogen 75 mg/dL (9-20); Calcium 6.7 mg/dL (8.4-10.2); Carbon Dioxide 24 mmol/L (22-30); Chloride 100 mmol/L (98-107); Estimated Glomerular Filt Rate 26; Glucose 135 mg/dL (65-110); Potassium 4.8 mmol/L (3.4-5.0); Sodium 134 mmol/L (137-145)
[2021-12-29 15:26] LABS: INR 1.9; Prothrombin Time 21.4 Seconds (11.1-14.7)
[2021-12-29 15:27] LABS: Partial Thromboplastin Time 32.6 SECONDS (22.3-36.8)
[2021-12-29 15:37] LABS: Appearance Urine Clear (Clear); Bilirubin Urine 1+ (Negative); Blood Urine Negative (Negative); Color Urine Yellow (Yellow); Glucose Urine UA Negative (Negative); Ketones Urine Trace mg/dL (Negative); Leukocyte Esterase Ur Trace LEU/UL (Negative); Nitrate Urine Negative (Negative); Protein Urine Negative (Negative); pH Urine 5.5 (5.0-9.0)
[2021-12-29 15:46] LABS: Hypochromasia 1+ (NORMAL); Platelet Estimate Decreased (Adequate)
[2021-12-29 15:47] LABS: Anisocytosis 2+ (NORMAL)
[2021-12-29 15:48] LABS: Mucus Urine Rare /lpf; RBC Urine 0-2 /hpf (0-2); Squamous Epithelial Cell Urine Rare /hpf (Few); WBC Urine 0-3 /hpf
[2021-12-29 15:49] LABS: Add Urine Microscopic? YES
[2021-12-29 15:51] LABS: Glucose Point of Care 129 mg/dl (65-105)
[2021-12-29] MEDS: SODIUM CHLORIDE 0.9% IV 500 ML 999 ML IV CONT ×2 (16:03→19:11)
--- NOTE | 2021-12-29 17:53 | ED.AMS ---
HPI - Altered Mental Status General Chief Complaint: Altered Mental Status Stated Complaint: altered mental status Time Seen by Provider: 12/29/21 15:37 Source: patient, EMS and other History of Present Illness HPI narrative: Patient presents with concern for altered mental status. Patient was more somnolent and difficult to arouse EMS was called he was noted to have a blood sugar of 20 they gave an amp of D50 blood sugar was 30 and patient began opening his eyes and he was brought to the ER for further evaluation. At time my evaluation patient reports he is feeling well he ports he had mild decrease in appetite recently denies any focal areas of pain denies any recent cough, congestion, nausea, vomiting, diarrhea. Related Data Home Medications Medication Instructions Recorded Confirmed aspirin 81 mg tablet 81 mg PO DAILY 11/07/20 12/23/21 multivitamin 1 tablet PO DAILY 11/07/20 12/23/21 thiamine HCl (vitamin B1) 100 mg 100 mg PO DAILY 11/07/20 12/23/21 tablet allopurinol 100 mg tablet 100 mg PO DAILY 10/25/21 12/23/21 ammonium lactate 12 % lotion See Rx Instructions .Route .COMPLEX 10/25/21 12/23/21 carvedilol 3.125 mg tablet 3.125 mg PO BID 10/25/21 12/23/21 duloxetine 20 mg capsule,delayed 50 mg PO DAILY 10/25/21 12/23/21 release finasteride 5 mg tablet 5 mg PO DAILY 10/25/21 12/23/21 furosemide 80 mg tablet 80 mg PO DAILY 10/25/21 12/23/21 gabapentin 300 mg capsule 300 mg PO HS 10/25/21 12/23/21 insulin glargine 100 unit/mL 5 unit subcut HS 10/25/21 12/23/21 subcutaneous solution (Lantus U-100 Insulin) isosorbide dinitrate 5 mg tablet 5 mg PO BID 10/25/21 12/23/21 lactulose 10 gram/15 mL oral 20 g PO BID 10/25/21 12/23/21 solution (Enulose) metolazone 2.5 mg tablet See Rx Instructions .Route .COMPLEX 10/25/21 12/23/21 paroxetine HCl 20 mg tablet 20 mg PO DAILY 10/25/21 12/23/21 potassium chloride 20 mEq 20 meq PO DAILY 10/25/21 12/23/21 tablet,extended release(part/cryst) pregabalin 225 mg capsule 225 mg PO BID 10/25/21 12/23/21 ropinirole 0.5 mg tablet 0.5 mg PO HS 10/25/21 12/23/21 tamsulosin 0.4 mg capsule 0.4 mg PO DAILY 10/25/21 12/23/21 ferrous sulfate 325 mg (65 mg 325 mg PO BID 11/04/21 12/23/21 iron) tablet (Iron (ferrous sulfate)) magnesium gluconate 500 mg tablet 500 mg PO DAILY 11/04/21 12/23/21 Allergies Allergy/AdvReac Type Severity Reaction Status Date / Time No Known Allergies Allergy Verified 12/23/21 14:03 Review of Systems Review of Systems: CONSTITUTIONAL: Denies fever, chills, or sweats. EYES: Denies visual changes, redness, or discharge. ENT: Denies rhinorrhea, congestion, sore throat, or otalgia. CARDIOVASCULAR: Denies chest pain, palpitations, or edema. RESPIRATORY: Denies cough or dyspnea. GASTROINTESTINAL: Denies abdominal pain, nausea, vomiting, or diarrhea. GENITOURINARY: Denies dysuria or hematuria. SKIN: Denies rash or itching. MUSCULOSKELETAL: Denies back pain, joint pain, or myalgia. NEUROLOGIC: Denies headache, numbness, dizziness, or weakness. PSYCHIATRIC: Denies anxiety or depression. All systems reviewed & are unremarkable except as noted in HPI and below PMFSH Past Medical History Medical History Acute on chronic anemia Acute on chronic renal failure Ascites Atrial fibrillation Biventricular ICD (implantable cardioverter-defibrillator) in place Cardiomyopathy CHF (congestive heart failure) Chronic ITP (idiopathic thrombocytopenia) Cirrhosis CKD (chronic kidney disease) stage 3, GFR 30-59 ml/min Colon cancer screening Diabetes mellitus Erosive gastritis Heart failure with reduced ejection fraction History of abdominal paracentesis HTN (hypertension) Nonsustained ventricular tachycardia Occult blood in stools Pacemaker Surgical History Surgical History Surgical history unknown Family History Family History (Reviewed 12/29/21 @ 17:57 by Clemente
== END 2021-12-29 21:00 ==
PROVIDERS: Emergency Provider Emergency Medicine; PCP Internal Medicine
DX: E11.649 Type 2 diabetes mellitus with hypoglycemia without coma (principal); E86.0 Dehydration; R41.82 Altered mental status, unspecified; E11.22 Type 2 diabetes mellitus with diabetic chronic kidney disease; I13.0 Hypertensive heart and chronic kidney disease with heart failure and stage 1 through stage 4 chronic kidney disease, or unspecified chronic kidney disease; N18.30 Chronic kidney disease, stage 3 unspecified; I50.9 Heart failure, unspecified; D64.9 Anemia, unspecified; I48.91 Unspecified atrial fibrillation; I42.9 Cardiomyopathy, unspecified; Z79.82 Long term (current) use of aspirin; Z79.4 Long term (current) use of insulin; Z95.810 Presence of automatic (implantable) cardiac defibrillator
CPT/HCPCS: 36415; 51701; 80053; 81001; 82948; 85025; 85055; 85610; 85730; 93005; 96361; 96374; 99284; J7040

== ENCOUNTER 2022-01-02 00:59 | Inpatient (IN) | payer OTHER, SELFPAY ==
[2022-01-02] VITALS (64 sets, daily range): BP systolic 64–111; BP diastolic 38–73; PULSE 71–82; RESP 8–24; TEMP 35.1–36.9; O2SAT 92–100; BMI 25.3
--- NOTE | ~2022-01-02 | US_ITS ---
US venous doppler UE LT DATE: 01/02/2022 12:11 INDICATION: Left arm swelling TECHNIQUE: Real-time and color flow imaging and Doppler analysis of the veins of the left upper extre mity COMPARISON: None FINDINGS: The left internal jugular, subclavian, axillary, brachial, basilic, cephalic and radial and ulnar veins are patent, without evidence of intraluminal thrombus. Some left forearm edema is noted. IMPRESSION: No evidence of deep venous fibrosis of left upper extremity Reviewed, dictated and finalized at [facility]. Reviewed, dictated and finalized at [facility].
--- NOTE | ~2022-01-02 | US_ITS ---
EXAMINATION: US renal BI DATE: 01/04/2022 10:16 INDICATION: Acute kidney injury TECHNIQUE: Multiple grayscale and Doppler ultrasound images of the kidneys were obtained. COMPARISON: CT from yesterday FINDINGS: The right kidney measures 10.0 x 4.5 x 4.6 cm. The left kidney measures 9.0 x 5.0 x 5.1 cm. The kidneys demonstrate normal parenchymal echogenicity. There is a large volume of ascites. There i s no hydronephrosis. The bladder is decompressed by Romero catheter. IMPRESSION: 1. Normal kidneys without hydronephrosis. 2. Large volume of ascites. Reviewed, dictated and finalized at location B.
--- NOTE | ~2022-01-02 | XR_ITS ---
XR chest 1V portable DATE: 01/02/2022 08:42 INDICATION: Shortness of breath TECHNIQUE: Portable AP chest on 01/19/2022 at 0829 hours COMPARISON: 12/22/2021 AP and lateral chest 11/07/2020 portable AP chest FINDINGS: Triple lead left-sided pacemaker device with leads overlying right atrium, right ventricle and coronary sinus. There is globular enlargement of the cardiac silhouette, chronic since 11/07/2020, likely due to cardio megaly/cardiomyopathy. Prominent bilateral patchy consolidating pulmonary infiltrates are noted, more prominent centrally an d in the lower lung zones, increased since 12/22/2021, suggesting pulmonary edema. Pneumonia is not ex cluded. There is mild prominence of the minor fissure suggesting subpleural edema. No pleural effusion or pneumothorax is detected. Osteopenia. IMPRESSION: Prominent bilateral pulmonary infiltrates suggesting pulmonary edema. Pneumonia is not ex cluded. Reviewed, dictated and finalized at location A. IMPRESSION: Prominent bilateral pulmonary infiltrates suggesting pulmonary arminda a. Pneumonia is not excluded.
--- NOTE | ~2022-01-02 | XR_ITS ---
EXAMINATION: XR chest 1V portable DATE: 01/05/2022 06:28 INDICATION: Septic shock TECHNIQUE: frontal view of the chest was obtained. COMPARISON: Chest radiograph dated 01/03/2022 FINDINGS: Minimal change attending for differences in technique in scattered patchy airspace opacities througho ut both lungs probably sparing the subpleural lung. No pleural effusion or pneumothorax. Cardiomegaly . Three lead pacemaker/AICD seen with leads projecting over the expected locations of the right atria l appendage, apex of the right ventricle and overlying the left ventricle likely having traversed the coronary sinus. IMPRESSION: 1. No significant change in patchy bilateral airspace opacities which could represent pulmonary edema , pneumonia or combination thereof. 2. Cardiomegaly. Reviewed, dictated and finalized at location A. IMPRESSION: 1. No significant change in patchy bilateral airspace opacities which could rep resent pulmonary edema, pneumonia or combination thereof. 2. Cardiomegaly.
--- NOTE | ~2022-01-02 | XR_ITS ---
XR chest 1V portable DATE: 01/03/2022 05:49 INDICATION: Shortness of breath TECHNIQUE: Portable AP chest on 12/2021 at 0457 hours COMPARISON: 01/29/2022 portable AP chest at 0829 hours FINDINGS: Persistent diffuse prominent bilateral pulmonary infiltrates, relatively stable since 2021. Cardiomegaly, aortic calcification. Left-sided triple lead pacemaker device with leads in expected position. No pleural effusion or pneum othorax is detected. IMPRESSION: No significant change of extensive severe bilateral pulmonary infiltrates since 01/02/2022 Reviewed, dictated and finalized at location A. IMPRESSION: No significant change of extensive severe bilateral pulmonary infil trates since 01/02/2022
--- NOTE | ~2022-01-02 | CT_ITS ---
EXAMINATION: CT abdomen pelvis wo con DATE: 01/03/2022 15:25 INDICATION: abdominal pain and distension , ascites TECHNIQUE: Computed tomography (CT) of the abdomen and pelvis was performed without intravenous contr ast. Automated exposure control and iterative reconstruction technique were employed. The dose-length product was 1383.73 mGy-cm. COMPARISON: 11/07/2020. FINDINGS: Lower thorax: Marked cardiomegaly. Incompletely visualized pacer wires. Bilateral groundglass opaciti es, most pronounced in the right middle lobe, also present in the lingula and bilateral lower lobes. Bibasilar atelectasis. Small bilateral effusions. Small hiatal hernia. Liver: Small liver, nodular border. Biliary/Gallbladder: Gallbladder is normal. No bile duct dilation. Pancreas: No mass or duct dilation. Atrophy. Spleen: Cyst or hemangioma. Otherwise normal. Adrenals:No mass. Kidneys: Bilateral atrophy. GI tract: No small or large bowel dilation. Normal appendix. Mesentery/Peritoneum: Large volume ascites. Retroperitoneum: No mass. Atherosclerotic abdominal aortic and/or arterial calcifications. Pelvis: The bladder is decompressed by Romero. Right femoral venous catheter. Soft Tissues: Body wall edema. Right inguinal lymphadenopathy. Bones: No acute osseous finding. IMPRESSION: Pulmonary opacities may reflect pulmonary edema or infection. Small bilateral pleural effusions. Larg e volume ascites. Right inguinal lymphadenopathy. Cirrhosis. Body wall edema. Reviewed, dictated and finalized at location K. IMPRESSION: Pulmonary opacities may reflect pulmonary edema or infection. Small bilateral p leural effusions. Large volume ascites. Right inguinal lymphadenopathy. Cirrhos is. Body wall edema.
--- NOTE | 2022-01-02 01:30 | ED.GENADULT ---
HPI - General Adult General Chief complaint: Weakness Stated complaint: noncompliant meds, weakness Time Seen by Provider: 01/02/22 01:24 History of Present Illness HPI narrative: 61-year-old male presenting the emergency department for evaluation of generalized weakness. Patient states he has not been eating and drinking well for the last few days. Patient was evaluated emergency department a few days ago and was found to have some hypoglycemia and worsening CHRISTIANE on CKD. Patient was treated for his hypoglycemia and treated with IV fluids. Patient did feel improved at that time. Patient was transported back to the emergency department because he states he still has generalized weakness. Patient does have a history of EF of 20 to 25%. Related Data Home Medications Medication Instructions Recorded Confirmed aspirin 81 mg tablet 81 mg PO DAILY 11/07/20 12/23/21 multivitamin 1 tablet PO DAILY 11/07/20 12/23/21 thiamine HCl (vitamin B1) 100 mg 100 mg PO DAILY 11/07/20 12/23/21 tablet allopurinol 100 mg tablet 100 mg PO DAILY 10/25/21 12/23/21 ammonium lactate 12 % lotion See Rx Instructions .Route .COMPLEX 10/25/21 12/23/21 carvedilol 3.125 mg tablet 3.125 mg PO BID 10/25/21 12/23/21 duloxetine 20 mg capsule,delayed 50 mg PO DAILY 10/25/21 12/23/21 release finasteride 5 mg tablet 5 mg PO DAILY 10/25/21 12/23/21 furosemide 80 mg tablet 80 mg PO DAILY 10/25/21 12/23/21 gabapentin 300 mg capsule 300 mg PO HS 10/25/21 12/23/21 insulin glargine 100 unit/mL 5 unit subcut HS 10/25/21 12/23/21 subcutaneous solution (Lantus U-100 Insulin) isosorbide dinitrate 5 mg tablet 5 mg PO BID 10/25/21 12/23/21 lactulose 10 gram/15 mL oral 20 g PO BID 10/25/21 12/23/21 solution (Enulose) metolazone 2.5 mg tablet See Rx Instructions .Route .COMPLEX 10/25/21 12/23/21 paroxetine HCl 20 mg tablet 20 mg PO DAILY 10/25/21 12/23/21 potassium chloride 20 mEq 20 meq PO DAILY 10/25/21 12/23/21 tablet,extended release(part/cryst) pregabalin 225 mg capsule 225 mg PO BID 10/25/21 12/23/21 ropinirole 0.5 mg tablet 0.5 mg PO HS 10/25/21 12/23/21 tamsulosin 0.4 mg capsule 0.4 mg PO DAILY 10/25/21 12/23/21 ferrous sulfate 325 mg (65 mg 325 mg PO BID 11/04/21 12/23/21 iron) tablet (Iron (ferrous sulfate)) magnesium gluconate 500 mg tablet 500 mg PO DAILY 11/04/21 12/23/21 Allergies Allergy/AdvReac Type Severity Reaction Status Date / Time No Known Allergies Allergy Verified 12/23/21 14:03 Review of Systems Review of Systems: CONSTITUTIONAL: Increased generalized weakness and decreased p.o. intake. EYES: Denies visual changes, redness, or discharge. ENT: Denies rhinorrhea, congestion, sore throat, or otalgia. CARDIOVASCULAR: Denies chest pain, palpitations, or edema. RESPIRATORY: Denies cough or dyspnea. GASTROINTESTINAL: Denies abdominal pain, nausea, vomiting, or diarrhea. GENITOURINARY: Denies dysuria or hematuria. SKIN: Denies rash or itching. MUSCULOSKELETAL: Denies back pain, joint pain, or myalgia. NEUROLOGIC: Denies headache, numbness, or weakness. [facility] Past Medical History Medical History Acute on chronic anemia Acute on chronic renal failure Ascites Atrial fibrillation Biventricular ICD (implantable cardioverter-defibrillator) in place Cardiomyopathy CHF (congestive heart failure) Chronic ITP (idiopathic thrombocytopenia) Cirrhosis CKD (chronic kidney disease) stage 3, GFR 30-59 ml/min Colon cancer screening Diabetes mellitus Erosive gastritis Heart failure with reduced ejection fraction History of abdominal paracentesis HTN (hypertension) Nonsustained ventricular tachycardia Occult blood in stools Pacemaker Surgical History Surgical History Surgical history unknown Family History Family History Mother Heart failure Social History Social History
[2022-01-02 02:16] LABS: SARS-CoV-2 RNA PCR Negative
[2022-01-02 02:52] LABS: Alanine Aminotransferase 24 U/L (6-50); Albumin Level 2.2 g/dL (3.5-5.1); Alkaline Phosphatase 163 U/L (38-126); Anion Gap 5 mmol/L (8-16); Aspartate Amino Transferase 58 U/L (17-59); Bilirubin,Total 1.4 mg/dL (0.2-1.3); Blood Urea Nitrogen 87 mg/dL (9-20); Calcium 6.7 mg/dL (8.4-10.2); Carbon Dioxide 28 mmol/L (22-30); Chloride 103 mmol/L (98-107); Estimated CRCL calculation 30 ml/min; Estimated Glomerular Filt Rate 25; Glucose 63 mg/dL (65-110); Potassium 4.9 mmol/L (3.4-5.0); Sodium 136 mmol/L (137-145)
[2022-01-02 02:53] LABS: Lactic Acid Reflex 3.1 mmol/L (0.7-2.0)
[2022-01-02 03:29] LABS: Basophils Percent Auto 0.2 % (0.2-1.2); Eosinophils Absolute Auto 0.1 K/mm3 (0-0.3); Eosinophils Percent Auto 1.4 % (0-4.4); Hematocrit 27.2 % (42.0-52.0); Hemoglobin 8.5 g/dL (14.0-18.0); Immature Granulocyte Absolute 0.04 K/mm3 (0.00-0.031); Immature Granulocyte Percent A 0.7 % (0-0.5); Immature Platelet Fraction Pct 14.8 % (0.9-11.2); Lymphocytes Absolute Auto 0.74 K/mm3 (0.9-3.2); Lymphocytes Percent Auto 12.5 % (18.3-44.2); Mean Corpuscular HGB Conc 31.3 g/dl (32-36); Mean Corpuscular Hemoglobin 30.9 pg (26-34); Mean Corpuscular Volume 98.9 fl (80-100); Mean Platelet Volume 14.2 fl (7.4-10.4); Monocytes Absolute Auto 0.5 K/mm3 (0.1-0.6); Monocytes Percent Auto 8.3 % (2.6-8.5); Neutrophils Absolute Auto 4.6 K/mm3 (1.3-6.7); Neutrophils Percent Auto 76.9 % (45.5-73.1); Nucleated Red Blood Cells Perc 0.7 % (0.0-0.2); Platelet Count Result 52 k/mm3 (150-375); Red Blood Count 2.75 M/mm3 (4.6-6.20); Red Cell Distribution Width 19.8 % (11.5-14.5); White Blood Count 5.9 K/mm3 (4.5-10.0)
[2022-01-02 03:32] LABS: Appearance Urine Clear (Clear); Bilirubin Urine Negative (Negative); Blood Urine Negative (Negative); Color Urine Yellow (Yellow); Glucose Urine UA Negative (Negative); Ketones Urine Negative (Negative); Leukocyte Esterase Ur Trace LEU/UL (Negative); Nitrate Urine Negative (Negative); Protein Urine Negative (Negative); Specific Grav Ur 1.015 (1.001-1.035)
[2022-01-02 03:40] LABS: Mucus Urine Rare /lpf; RBC Urine 0-2 /hpf (0-2); Squamous Epithelial Cell Urine Rare /hpf (Few); WBC Urine 0-3 /hpf
[2022-01-02 03:43] LABS: Add Urine Microscopic? YES
[2022-01-02 03:57] LABS: Platelet Estimate Decreased (Adequate); Poikilocytosis 1+ (NORMAL); Target Cells 1+ (NORMAL)
[2022-01-02] MEDS: MIDODRINE HCL 10 MG TABLET PO ×4 (04:59→17:01)
[2022-01-02] MEDS: MIDODRINE HCL 2.5 MG TABLET 5 MG PO (04:59)
[2022-01-02 05:22] LABS: Reflex Lactic Acid Yes or No Add Lactic
--- NOTE | 2022-01-02 06:14 | PC.NURSE ---
This patient, Clark Montes De Oca, was admitted to Intensive Care Unit-3. Patient/family oriented to hospital policies and general routines including ID bracelet, bed and alarms, visiting hours, pain management, procedures, bathroom and other care routines, personal items, smoking policy, room service/diet, and visiting hours. Information on how to activate the Rapid Response Team has been discussed. Patient/Family are encouraged to report perceived risks to care and to ask questions if they do not understand what they are told or what they should do.
[2022-01-02 06:52] LABS: Glucose Point of Care 112 mg/dl (65-105)
[2022-01-02 06:58] LABS: Lactic Acid 3.5 mmol/L (0.7-2.0)
--- NOTE | 2022-01-02 08:34 | ECG_ITS ---
Measurements Intervals [place] Rate: 75 P: RI: 0 QRS: -70 QRSD: 205 T: 114 QT: 489 QTc: 546 Interpretive Statements ELECTRONIC VENTRICULAR PACEMAKER BASELINE ARTIFACT- I, II, AVR, V1, V6 NO FURTHER INTERPRETATION IS POSSIBLE ATYPICAL ECG Electronically Signed On 01-02-2022 17:13:24 CDT by Marc Rushing D.O.
[2022-01-02] MEDS: SODIUM CHLORIDE 0.9% IV 500 ML IV CONT (08:41)
--- NOTE | 2022-01-02 08:55 | PM.IMHP ---
H&P: HPI History of Present Illness Date/Time: 01/02/22 08:55 Chief Complaint: generaslied weakness Narrative: this is a 61-year-old male with resident [facility] in [place] [facility] presents to the ED via EMS for evaluation of generalized weakness and poor p.o. intake. Is reported to be rib using his medications and not eating or drinking for the past few days. He was seen for similar symptoms on December 29, 2021 wherein he was noted to have hypoglycemia and some worsening CHRISTIANE on CKD. He was given some IV fluids with some improvement. He was then sent back to long-term. Patient has been increasingly weaker more confused And hence brought to the ED for evaluation. He is normally alert and oriented x3. Per EMS he was slightly confused to place. He denied any nausea vomiting shortness of breath cough or chest pain. He also denies any abdominal pain or diarrhea. He has underlying history of congestive heart failure insulin-dependent diabetes mellitus cardiomyopathy hypothyroidism atrial fibrillation. EMS report noted blood pressure of 77/48 with pulse of 74 and saturation of 95%. EKG rhythm showed paced rhythm on the monitor. Blood pressure was noted to be as low as 43/23 at 1 time but mostly in 70s to 80s systolic. he received some IV fluid via EMS as per the report he. While in the ER he was given 15 mg of midodrine. He was noted to have hypoglycemia of 62 creatinine of 3.1 with lactic acidosis of 3. He is admitted to IMU status further Review of Systems Review of Systems: - CONSTITUTIONAL: Denies weight loss, fever and chills. - HEENT: Denies changes in vision and hearing - RESPIRATORY: Denies SOB and cough. - CV: Denies palpitations and CP. - GI: Denies abdominal pain, nausea, vomiting and diarrhea. - : Denies dysuria and urinary frequency. - MSK: Denies myalgia and joint pain. - SKIN: Denies rash and pruritus. - NEUROLOGICAL: Denies headache and syncope. Reports generalized weakness - PSYCHIATRIC: Denies recent changes in mood. Denies anxiety and depression. [facility] Past Medical History Medical History Acute on chronic anemia Acute on chronic renal failure Ascites Atrial fibrillation Biventricular ICD (implantable cardioverter-defibrillator) in place Cardiomyopathy CHF (congestive heart failure) Chronic ITP (idiopathic thrombocytopenia) Cirrhosis CKD (chronic kidney disease) stage 3, GFR 30-59 ml/min Colon cancer screening Diabetes mellitus Erosive gastritis Heart failure with reduced ejection fraction History of abdominal paracentesis HTN (hypertension) Nonsustained ventricular tachycardia Occult blood in stools Pacemaker Surgical History Surgical History Surgical history unknown Family History Family History Mother Heart failure Social History Social History Social History: Patient resides at [facility]. The patient is listed as a full code. Smoking status: Never smoker Second hand tobacco smoke exposure: Yes Alcohol intake: never Substance use: never Gender identity (if verbalized by the patient): Male Sexual Orientation (if Verbalized by the Patient): Straight or Heterosexual Spiritual care concerns: No Meds Home Medications and Allergies Home Medications Medication Instructions Recorded Confirmed Type multivitamin 1 tablet PO DAILY 11/07/20 01/02/22 History thiamine HCl (vitamin B1) 100 mg 100 mg PO DAILY 11/07/20 01/02/22 History tablet allopurinol 100 mg tablet 100 mg PO DAILY 10/25/21 01/02/22 History ammonium lactate 12 % lotion 1 applic topical DAILY 10/25/21 01/02/22 History carvedilol 3.125 mg tablet 3.125 mg PO BID 10/25/21 01/02/22 History duloxetine 20 mg capsule,delayed 50 mg P
[2022-01-02 09:17] LABS: Ammonia < 9 umol/L (9-30)
--- NOTE | 2022-01-02 09:31 | WPDCNINT ---
Assessment and Plan Assessment and plan (1) Sepsis: Code(s): A41.9 - Sepsis, unspecified organism Status: Acute Assessment and Plan: Patient presented with generalized weakness, hypotension, hypoglycemia, decreased body temperature, elevated lactic acid, acute on chronic kidney disease -source is unclear but could be related to lungs of bloodstream infection -UA was not reflective of UTI -SARS-CoV-2 PCR was negative -patient was given some fluids in the ambulance and 500 mL of IV fluids in the intermediate Unit -will give additional IV fluids in the form of Hespan and will start albumin IV q.6 hours x4 doses -patient with acute on chronic kidney disease, he is making adequate urine -lactic acid is 4.0, will recheck after giving the IV fluids -patient has been started on cefepime and vancomycin on 01/02 -blood and urine cultures have been ordered and pending (2) Hypotension: Qualifiers: Hypotension type: hypotension due to drug Qualified Code(s): I95.2 - Hypotension due to drugs Code(s): I95.9 - Hypotension, unspecified Status: Acute Assessment and Plan: Hypotension could be related to sepsis, medications as he is on carvedilol, finasteride, furosemide, isosorbide dinitrate, [facility] -will hold all antihypertensive medications -reviewing his chart patient has megan systolic blood pressures have been between upper 80s to low 100s. (3) Generalized weakness: Code(s): R53.1 - Weakness Status: Acute Assessment and Plan: Patient with generalized weakness could be related to hypotension, hypoglycemia, sepsis/infection -continue monitor and treat underlying cause (4) Thrombocytopenia: Code(s): D69.6 - Thrombocytopenia, unspecified Status: Acute Assessment and Plan: Patient has a history of ITP and chronic thrombocytopenia -no obvious bleeding noted -continue to monitor for bleeding and platelet counts (5) Heart failure with reduced ejection fraction: Code(s): I50.20 - Unspecified systolic (congestive) heart failure Status: Acute Assessment and Plan: 11/08/2021 echocardiogram: Shows LV dimension is severely enlarged, LA dimension is severely enlarged, LV systolic function severely reduced estimated EF is 20-25%. Grade 2 diastolic dysfunction RV chamber dimension is severely enlarged, RV systolic function is severely reduced. There is moderate to severe tricuspid valve regurgitation. Severe pulmonary hypertension with RVSP of 63 mmHg Patient with known cardiomyopathy, has been on Coreg, Lasix, isosorbide dinitrate, [facility]one [facility] (6) Acute on chronic renal failure: Qualifiers: Acute renal failure type: unspecified Chronic kidney disease stage: stage 3 (moderate) Code(s): N17.9 - Acute kidney failure, unspecified; N18.9 - Chronic kidney disease, unspecified Status: Acute Assessment and Plan: Patient presented with acute on chronic kidney disease likely related to sepsis, hypotension, infection, medication related -fluids cautiously given EF of only 20-25% with severe pulmonary hypertension, left and right heart failure -lactic acid is elevated, will trend -patient with history of acute on chronic kidney disease, creatinine up to 3.1 this admission, will hold all antihypertensives -continue to monitor urine output for which a Romero catheter was placed -continue monitor renal function and electrolytes (7) Anemia: Qualifiers: Anemia type: other cause Other causes of anemia: chronic disease, other Qualified Code(s): D63.8 - Anemia in other chronic diseases classified elsewhere Code(s): D64.9 - Anemia, unspecified Status: Acute Assessment and Plan: Hemoglobin stable at 8.5 -patient is known to anemia (8) Diabetes mellitus: Qualifiers: Diabetes mellitus type: type 2 Diabetes mellitus care 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
[2022-01-02] MEDS: hetaSTARCH 6%/NACL 500 ML 250 ML IV CONT ×2 (09:39→20:13)
[2022-01-02 09:41] LABS: Procalcitonin 1.5 ng/mL
[2022-01-02] MEDS: THIAMINE HCL 100 MG TABLET PO (09:49)
[2022-01-02] MEDS: LEVOTHYROXINE SODIUM 50 MCG TABLET PO (09:49)
[2022-01-02 11:42] LABS: Glucose Point of Care 143 mg/dl (65-105)
[2022-01-02] MEDS: CALCIUM GLUC 2,000 MG/NS 100ML 2,000 MG/100 ML BAG 100 MG IVPB (11:53)
--- NOTE | 2022-01-02 12:09 | PM.CNNEP ---
Assessment and Plan Assessment and plan (1) CHRISTIANE (acute kidney injury): Code(s): N17.9 - Acute kidney failure, unspecified Status: Acute Assessment and Plan: suspect acute insult is multifactorial: sepsis hypotension/hemodynamics instability infection medication-related (BP medications/diuretics/flomax in the setting of reduced BP) has an element of baseline cardiorenal syndrome that may have exacerbated by the above issues leading to worsening renal function as well check renal ultrasoound check urine electrolytes and urine eosinophils check CPK follow trend of repeat labs and UOP (2) Stage 3b chronic kidney disease: Code(s): N18.32 - Chronic kidney disease, stage 3b Status: Chronic Assessment and Plan: in 2020, creatinine was running 1.7 - 2.3mg/dl more recently (2021), creatinine has been running 2.3 - 2.7mg/dl (due to disease progression?) likely due to relative hypotension (due to cardiomyopathy), depressed EF/cardiorenal syndrome, BPH, and diabetes (3) Sepsis: Code(s): A41.9 - Sepsis, unspecified organism Status: Acute Assessment and Plan: as noted on admission with generalized weakness, low BP, hypoglycemia, hypothermia, lactic acidosis, and CHRISTIANE source unclear UA not c/w with UTI COVID PCR negative blood/urine culture pending possible due to lung infection of bacteremia(?) gentle IVF resuscitation (given known cardiomyopathy) along with IV albumin given lactic acidosis empiric antibiotics follow culture datea (4) Hypotension: Qualifiers: Hypotension type: hypotension due to drug Qualified Code(s): I95.2 - Hypotension due to drugs Code(s): I95.9 - Hypotension, unspecified Status: Acute Assessment and Plan: chronic issues at baseline (presumably due to cardiomyopathy) -- usually 90 - 100s systolic at best however, sepsis and medications could be playing a role BP medications/diuretics on hold follow trend of hemodynamics (5) Cardiomyopathy: Qualifiers: Cardiomyopathy type: dilated Qualified Code(s): I42.0 - Dilated cardiomyopathy Code(s): I42.9 - Cardiomyopathy, unspecified Status: Chronic Assessment and Plan: as noted by recent echo (11/08/21): LV dimension is severely enlarged, LA dimension is severely enlarged, LV systolic function severely reduced estimated EF is 20-25%. Grade 2 diastolic dysfunction RV chamber dimension is severely enlarged, RV systolic function is severely reduced. There is moderate to severe tricuspid valve regurgitation. Severe pulmonary hypertension with RVSP of 63 mmHg (6) Anemia: Qualifiers: Anemia type: other cause Other causes of anemia: chronic disease, other Qualified Code(s): D63.8 - Anemia in other chronic diseases classified elsewhere Code(s): D64.9 - Anemia, unspecified Status: Acute Assessment and Plan: likely due to acute illness, CHRISTIANE, CKD, and chronic disease follow trend of H/H consider use of ALANA during hospital stay (7) Generalized weakness: Code(s): R53.1 - Weakness Status: Acute Assessment and Plan: suspect multifactorial: acute on chronic hypotension hypoglycemia possible infection sepsis continue therapy as outlined (8) Diabetes mellitus: Qualifiers: Diabetes mellitus complication status: without complication Diabetes mellitus termite exterminator helper insulin use: with intermediate use Diabetes mellitus type: type 2 Qualified Code(s): E11.9 - Type 2 diabetes mellitus without complications; Z79.4 - intermediate accountant (current) use of insulin Code(s): E11.9 - Type 2 diabetes mellitus without complications Status: Chronic Assessment and Plan: known history however, well controlled with last A1c 5.0 follow accuchecks on SSI Will continue to follow. History of Present Illness Reason for Consult Consult date: 01/02/22
--- NOTE | 2022-01-02 12:09 | P.CONNP_ITS ---
Assessment and Plan Assessment and plan (1) CHRISTIANE (acute kidney injury): Code(s): N17.9 - Acute kidney failure, unspecified Status: Acute Assessment and Plan: * suspect acute insult is multifactorial: * sepsis * hypotension/hemodynamics instability * infection * medication-related (BP medications/diuretics/flomax in the setting of reduced BP) * has an element of baseline cardiorenal syndrome that may have exacerbated by the above issues leading to worsening renal function as well * check renal ultrasoound * check urine electrolytes and urine eosinophils * check CPK * follow trend of repeat labs and UOP (2) Stage 3b chronic kidney disease: Code(s): N18.32 - Chronic kidney disease, stage 3b Status: Chronic Assessment and Plan: * in 2020, creatinine was running 1.7 - 2.3mg/dl * more recently (2021), creatinine has been running 2.3 - 2.7mg/dl (due to disease progression?) * likely due to relative hypotension (due to cardiomyopathy), depressed EF/cardiorenal syndrome, BPH, and diabetes (3) Sepsis: Code(s): A41.9 - Sepsis, unspecified organism Status: Acute Assessment and Plan: * as noted on admission with generalized weakness, low BP, hypoglycemia, hypothermia, lactic acidosis, and CHRISTIANE * source unclear * UA not c/w with UTI * COVID PCR negative * blood/urine culture pending * possible due to lung infection of bacteremia(?) * gentle IVF resuscitation (given known cardiomyopathy) along with IV albumin given lactic acidosis * empiric antibiotics * follow culture datea (4) Hypotension: Qualifiers: Hypotension type: hypotension due to drug Qualified Code(s): I95.2 - Hypotension due to drugs Code(s): I95.9 - Hypotension, unspecified Status: Acute Assessment and Plan: * chronic issues at baseline (presumably due to cardiomyopathy) -- usually 90 - 100s systolic at best * however, sepsis and medications could be playing a role * BP medications/diuretics on hold * follow trend of hemodynamics (5) Cardiomyopathy: Qualifiers: Cardiomyopathy type: dilated Qualified Code(s): I42.0 - Dilated cardiomyopathy Code(s): I42.9 - Cardiomyopathy, unspecified Status: Chronic Assessment and Plan: * as noted by recent echo (11/08/21): * LV dimension is severely enlarged, LA dimension is severely enlarged, LV systolic function severely reduced estimated EF is 20-25%. Grade 2 diastolic dysfunction RV chamber dimension is severely enlarged, RV systolic function is severely reduced. There is moderate to severe tricuspid valve regurgitation. Severe pulmonary hypertension with RVSP of 63 mmHg (6) Anemia: Qualifiers: Anemia type: other cause Other causes of anemia: chronic disease, other Qualified Code(s): D63.8 - Anemia in other chronic diseases classified elsewhere Code(s): D64.9 - Anemia, unspecified Status: Acute Assessment and Plan: * likely due to acute illness, CHRISTIANE, CKD, and chronic disease * follow trend of H/H * consider use of ALANA during hospital stay (7) Generalized weakness: Code(s): R53.1 - Weakness Status: Acute Assessment and Plan: * suspect multifactorial: * acute on chronic hypotension * hypoglycemia * possible infection * sepsis * continue therapy as outlined (8) Diabetes mellitus: Qualifiers: Diabetes mellitus complication status: without complication Diab
[2022-01-02] MEDS: ALBUMIN HUMAN 25% 25 GM/100 ML 100 ML IVPB ×3 (12:43→23:39)
[2022-01-02 13:27] LABS: Glucose Point of Care 158 mg/dl (65-105)
[2022-01-02 15:12] LABS: Total Protein Urine Random 18 mg/dL; Ur Ttl Prot Creatinine Ratio 0.31 mg/mg (0-0.20)
[2022-01-02 15:16] LABS: Sodium Urine Random 39 meq/L
[2022-01-02 15:39] LABS: Eosinophil Urine None Seen % (None Seen)
[2022-01-02 17:12] LABS: Glucose Point of Care 106 mg/dl (65-105)
[2022-01-02 18:28] LABS: Reflex Lactic Acid Yes or No Add Lactic
[2022-01-02 19:34] LABS: Lactic Acid 3.8 mmol/L (0.7-2.0)
[2022-01-02] MEDS: PANTOPRAZOLE 40 MG TABLET PO (20:12)
[2022-01-02] MEDS: ACETAMINOPHEN 325 MG TABLET 650 MG PO (20:12)
[2022-01-02] MEDS: DOBUTamine 250 MG/D5W 250 ML 250 MG/250 ML BAG 13.07 MG IV CONT (22:39)
[2022-01-03] VITALS (24 sets, daily range): BP systolic 67–146; BP diastolic 58–84; PULSE 19–89; RESP 13–76; TEMP 35.9–36.9; O2SAT 91–100
[2022-01-03 04:31] LABS: Basophils Percent Auto 0.2 % (0.2-1.2); Eosinophils Absolute Auto 0.1 K/mm3 (0-0.3); Eosinophils Percent Auto 1.8 % (0-4.4); Hematocrit 22.8 % (42.0-52.0); Hemoglobin 7.2 g/dL (14.0-18.0); Immature Granulocyte Absolute 0.04 K/mm3 (0.00-0.031); Immature Granulocyte Percent A 0.9 % (0-0.5); Immature Platelet Fraction Pct 15.8 % (0.9-11.2); Lymphocytes Absolute Auto 0.63 K/mm3 (0.9-3.2); Lymphocytes Percent Auto 14.2 % (18.3-44.2); Mean Corpuscular HGB Conc 31.6 g/dl (32-36); Mean Corpuscular Volume 98.3 fl (80-100); Mean Platelet Volume 13.9 fl (7.4-10.4); Monocytes Absolute Auto 0.4 K/mm3 (0.1-0.6); Monocytes Percent Auto 9.7 % (2.6-8.5); Neutrophils Absolute Auto 3.2 K/mm3 (1.3-6.7); Neutrophils Percent Auto 73.2 % (45.5-73.1); Nucleated Red Blood Cells Perc 0.5 % (0.0-0.2); Platelet Count Result 36 k/mm3 (150-375); Red Blood Count 2.32 M/mm3 (4.6-6.20); Red Cell Distribution Width 19.6 % (11.5-14.5); White Blood Count 4.4 K/mm3 (4.5-10.0)
[2022-01-03 04:38] LABS: Alanine Aminotransferase 19 U/L (6-50); Albumin Level 2.3 g/dL (3.5-5.1); Alkaline Phosphatase 114 U/L (38-126); Anion Gap 6 mmol/L (8-16); Aspartate Amino Transferase 34 U/L (17-59); Bilirubin,Total 2.2 mg/dL (0.2-1.3); Blood Urea Nitrogen 82 mg/dL (9-20); Calcium 6.7 mg/dL (8.4-10.2); Carbon Dioxide 26 mmol/L (22-30); Chloride 102 mmol/L (98-107); Creatine Kinase 131 U/L (55-170); Estimated CRCL calculation 25 ml/min; Estimated Glomerular Filt Rate 24; Glucose 76 mg/dL (65-110); Lipase 75 U/L (23-300); Magnesium 2.6 mg/dL (1.6-2.3); Phosphorus 4.2 mg/dL (2.5-4.5); Potassium 4.2 mmol/L (3.4-5.0); Sodium 134 mmol/L (137-145)
[2022-01-03 04:39] LABS: Lactic Acid Reflex 3.3 mmol/L (0.7-2.0)
[2022-01-03 04:42] LABS: INR 2.3; Prothrombin Time 24.8 Seconds (11.1-14.7)
[2022-01-03 04:43] LABS: Partial Thromboplastin Time 49.9 SECONDS (22.3-36.8)
[2022-01-03 05:04] LABS: Ovalocytes 1+ (NORMAL); Platelet Estimate Decreased (Adequate); Poikilocytosis 1+ (NORMAL)
[2022-01-03] MEDS: ALBUMIN HUMAN 25% 25 GM/100 ML 100 ML IVPB ×3 (05:10→18:00)
[2022-01-03 07:27] LABS: Reflex Lactic Acid Yes or No Add Lactic
[2022-01-03 07:52] LABS: Glucose Point of Care 78 mg/dl (65-105)
--- NOTE | 2022-01-03 08:00 | WPDINTPN ---
Progress Note: A&P Assessment and Plan (1) Sepsis: Code(s): A41.9 - Sepsis, unspecified organism Status: Acute Assessment and Plan: Patient presented with generalized weakness, hypotension, hypoglycemia, decreased body temperature, elevated lactic acid, acute on chronic kidney disease -source is unclear but could be related to lungs of bloodstream infection -UA was not reflective of UTI -SARS-CoV-2 PCR was negative -patient was adequately fluid-resuscitated given his severe cardiomyopathy with an EF of 20-25% and grade 2 diastolic dysfunction -patient with acute on chronic kidney disease, he is making adequate urine -lactic acid was 4.0 on admission, this morning it is 3.0 -continue cefepime and vancomycin (01/02) -01/02/2022: Blood cultures: Preliminary results are negative x2 -01/02/2022 urine cultures: Pending -will place central line and start patient on Levophed, maintain systolic blood pressures of 90-100 at all times -patient has been started on dobutamine overnight on 01/02/2022 -will trend lactic acid levels, if they remain elevated patient may require unit of packed RBCs (2) Hypotension: Qualifiers: Hypotension type: hypotension due to drug Qualified Code(s): I95.2 - Hypotension due to drugs Code(s): I95.9 - Hypotension, unspecified Status: Acute Assessment and Plan: Hypotension could be related to sepsis, medications as he is on carvedilol, finasteride, furosemide, isosorbide dinitrate, metolazone at the [facility] -will hold all antihypertensive medications -reviewing his chart patient has normal systolic blood pressures have been between upper 80s to low 100s. (3) Generalized weakness: Code(s): R53.1 - Weakness Status: Acute Assessment and Plan: Patient with generalized weakness could be related to hypotension, hypoglycemia, sepsis/infection -continue monitor and treat underlying cause (4) Thrombocytopenia: Code(s): D69.6 - Thrombocytopenia, unspecified Status: Acute Assessment and Plan: Patient has a history of ITP and chronic thrombocytopenia -no obvious bleeding noted -continue to monitor for bleeding and platelet counts (5) Heart failure with reduced ejection fraction: Code(s): I50.20 - Unspecified systolic (congestive) heart failure Status: Acute Assessment and Plan: 11/08/2021 echocardiogram: Shows LV dimension is severely enlarged, LA dimension is severely enlarged, LV systolic function severely reduced estimated EF is 20-25%. Grade 2 diastolic dysfunction, RV chamber dimension is severely enlarged, RV systolic function is severely reduced. There is moderate to severe tricuspid valve regurgitation. Severe pulmonary hypertension with RVSP of 63 mmHg Patient with known cardiomyopathy, has been on Coreg, Lasix, isosorbide dinitrate, metolazone at [facility] (6) Acute on chronic renal failure: Qualifiers: Acute renal failure type: unspecified Chronic kidney disease stage: stage 3 (moderate) Code(s): N17.9 - Acute kidney failure, unspecified; N18.9 - Chronic kidney disease, unspecified Status: Acute Assessment and Plan: Patient presented with acute on chronic kidney disease likely related to sepsis, hypotension, infection, medication related -fluids cautiously given EF of only 20-25% with severe pulmonary hypertension, left and right heart failure -lactic acid is elevated, will trend -patient with history of acute on chronic kidney disease, creatinine up to 3.1 this admission, will hold all antihypertensives -continue to monitor urine output for which a Romero catheter was placed -continue monitor renal function and electrolytes (7) Anemia: Qualifiers: Anemia type: other cause Other causes of anemia: chronic disease, other Qualified Code(s): D63.8 - Anemia in other chronic diseases classified elsewhere Code(s): D64.9 - Anemia, unspecified Status: A
[2022-01-03] MEDS: LEVOTHYROXINE SODIUM 50 MCG TABLET PO (08:28)
[2022-01-03] MEDS: DULoxetine HCL 20 MG CAPSULE.DR PO (08:28)
[2022-01-03] MEDS: MIDODRINE HCL 10 MG TABLET PO (08:28)
[2022-01-03] MEDS: DULoxetine HCL 30 MG CAPSULE.DR PO (08:28)
[2022-01-03] MEDS: NOREPINEPHRINE 8 MG/D5W 250 ML 8 MG/250 ML BAG 9.38 MG IV CONT (09:01)
--- NOTE | 2022-01-03 09:02 | P.PCNBED_ITS ---
Procedures Central Line Placement Right Femoral: Central Line Date: 01/03/22 Central Line Time: 08:44 Consent: I have discussed with the patient and/or surrogate, the non-emergent placement of a central venous catheter, including its clinical necessity/indication and associated potential risks and complications. The patient and/or surrogate understand(s) and acknowledge(s) the need to proceed with central venous catheter insertion as an important element of the patient's clinical management. Time Out Performed: Yes Patient Position: supine Patient placed on monitor/pulse ox: Yes Provider Prep: mask, sterile gown, sterile gloves, Max. sterile barrier precautions, cap and hand hygiene with conventional soap/water or alcohol based hand rub Central line prep: 2% Chlorhexidine scrub Local anesthesia used: lidocaine 1% Amount of anesthesia used (ml): 3 Sterile US Technique with sterile gel/sterile probe covers: Yes Central line lumen inserted: triple Malagasy: 12 Length (cm): 16 Depth of Insertion (cm): 16 Post Procedure: sutured in place, good blood return, all ports aspirated, flushed, capped, transparent dressing, hemostatic product, antimicrobial product, securement product and aseptic technique maintained throughout procedure Post procedure x-ray: other (Not applicable) Patient tolerated procedure: well Complications: none Additional comments: Right femoral central line was inserted as patient is platelet counts were 36, and INR of 2.3
--- NOTE | 2022-01-03 09:09 | P.PNNP_ITS ---
Progress Note: A&P Assessment and Plan (1) CHRISTIANE (acute kidney injury): Code(s): N17.9 - Acute kidney failure, unspecified Status: Acute Assessment and Plan: * acute kidney injury * renal ultrasound is pending * urinalysis is bland * urine electrolytes are non pre renal * CK is normal * suspect acute insult is multifactorial: * sepsis : blood cultures are pending. He is on cefepime and vancomycin. * hypotension/hemodynamics instability He is starting norepinephrine. * has an element of baseline cardiorenal syndrome . He has an EF of only 25%, severe pulmonary hypertension, moderate to severe tricuspid regurgitation. So even at his compensated state, he is chronically pre renal. * blood pressure is still very low. Is transitioning to norepinephrine now that he has a central line. (2) Stage 3b chronic kidney disease: Code(s): N18.32 - Chronic kidney disease, stage 3b Status: Chronic Assessment and Plan: * in 2020, creatinine was running 1.7 - 2.3mg/dl * more recently (2021), creatinine has been running 2.3 - 2.7mg/dl (due to disease progression?) * likely due to relative hypotension (due to cardiomyopathy), depressed EF/cardiorenal syndrome, BPH, and diabetes (3) Sepsis: Code(s): A41.9 - Sepsis, unspecified organism Status: Acute Assessment and Plan: * as noted on admission with generalized weakness, low BP, hypoglycemia, hypothermia, lactic acidosis, and CHRISTIANE * source unclear * UA not c/w with UTI * COVID PCR negative * blood/urine culture pending * possible due to lung infection of bacteremia(?) * gentle IVF resuscitation (given known cardiomyopathy) along with IV albumin given lactic acidosis * empiric antibiotics * follow culture datea (4) Hypotension: Qualifiers: Hypotension type: hypotension due to drug Qualified Code(s): I95.2 - Hypotension due to drugs Code(s): I95.9 - Hypotension, unspecified Status: Acute Assessment and Plan: * chronic issues at baseline (presumably due to cardiomyopathy) -- usually 90 - 100s systolic at best * however, sepsis and medications could be playing a role * BP medications/diuretics on hold * follow trend of hemodynamics (5) Cardiomyopathy: Qualifiers: Cardiomyopathy type: dilated Qualified Code(s): I42.0 - Dilated cardiomyopathy Code(s): I42.9 - Cardiomyopathy, unspecified Status: Chronic Assessment and Plan: * as noted by recent echo (11/08/21): * LV dimension is severely enlarged, LA dimension is severely enlarged, LV systolic function severely reduced estimated EF is 20-25%. Grade 2 diastolic dysfunction RV chamber dimension is severely enlarged, RV systolic function is severely reduced. There is moderate to severe tricuspid valve regurgitation. Severe pulmonary hypertension with RVSP of 63 mmHg (6) Anemia: Qualifiers: Anemia type: other cause Other causes of anemia: chronic disease, other Qualified Code(s): D63.8 - Anemia in other chronic diseases classified elsewhere Code(s): D64.9 - Anemia, unspecified Status: Acute Assessment and Plan: * likely due to acute illness, CHRISTIANE, CKD, and chronic disease * follow trend of H/H * consider use of ALANA during hospital stay (7) Generalized weakness: Code(s): R53.1 - Weakness Status: Acute Assessment and Plan: * suspect multifactorial: * acute on chronic hypotension * hypoglycemia * possib
--- NOTE | 2022-01-03 09:09 | PM.PNNEP ---
Progress Note: A&P Assessment and Plan (1) CHRISTIANE (acute kidney injury): Code(s): N17.9 - Acute kidney failure, unspecified Status: Acute Assessment and Plan: acute kidney injury renal ultrasound is pending urinalysis is bland urine electrolytes are non pre renal CK is normal suspect acute insult is multifactorial: sepsis : blood cultures are pending. He is on cefepime and vancomycin. hypotension/hemodynamics instability He is starting norepinephrine. has an element of baseline cardiorenal syndrome . He has an EF of only 25%, severe pulmonary hypertension, moderate to severe tricuspid regurgitation. So even at his compensated state, he is chronically pre renal. blood pressure is still very low. Is transitioning to norepinephrine now that he has a central line. (2) Stage 3b chronic kidney disease: Code(s): N18.32 - Chronic kidney disease, stage 3b Status: Chronic Assessment and Plan: in 2020, creatinine was running 1.7 - 2.3mg/dl more recently (2021), creatinine has been running 2.3 - 2.7mg/dl (due to disease progression?) likely due to relative hypotension (due to cardiomyopathy), depressed EF/cardiorenal syndrome, BPH, and diabetes (3) Sepsis: Code(s): A41.9 - Sepsis, unspecified organism Status: Acute Assessment and Plan: as noted on admission with generalized weakness, low BP, hypoglycemia, hypothermia, lactic acidosis, and CHRISTIANE source unclear UA not c/w with UTI COVID PCR negative blood/urine culture pending possible due to lung infection of bacteremia(?) gentle IVF resuscitation (given known cardiomyopathy) along with IV albumin given lactic acidosis empiric antibiotics follow culture datea (4) Hypotension: Qualifiers: Hypotension type: hypotension due to drug Qualified Code(s): I95.2 - Hypotension due to drugs Code(s): I95.9 - Hypotension, unspecified Status: Acute Assessment and Plan: chronic issues at baseline (presumably due to cardiomyopathy) -- usually 90 - 100s systolic at best however, sepsis and medications could be playing a role BP medications/diuretics on hold follow trend of hemodynamics (5) Cardiomyopathy: Qualifiers: Cardiomyopathy type: dilated Qualified Code(s): I42.0 - Dilated cardiomyopathy Code(s): I42.9 - Cardiomyopathy, unspecified Status: Chronic Assessment and Plan: as noted by recent echo (11/08/21): LV dimension is severely enlarged, LA dimension is severely enlarged, LV systolic function severely reduced estimated EF is 20-25%. Grade 2 diastolic dysfunction RV chamber dimension is severely enlarged, RV systolic function is severely reduced. There is moderate to severe tricuspid valve regurgitation. Severe pulmonary hypertension with RVSP of 63 mmHg (6) Anemia: Qualifiers: Anemia type: other cause Other causes of anemia: chronic disease, other Qualified Code(s): D63.8 - Anemia in other chronic diseases classified elsewhere Code(s): D64.9 - Anemia, unspecified Status: Acute Assessment and Plan: likely due to acute illness, CHRISTIANE, CKD, and chronic disease follow trend of H/H consider use of ALANA during hospital stay (7) Generalized weakness: Code(s): R53.1 - Weakness Status: Acute Assessment and Plan: suspect multifactorial: acute on chronic hypotension hypoglycemia possible infection sepsis continue therapy as outlined (8) Diabetes mellitus: Qualifiers: Diabetes mellitus complication status: without complication Diabetes mellitus terminal press operator insulin use: with terminal press operator use Diabetes mellitus type: type 2 Qualified Code(s): E11.9 - Type 2 diabetes mellitus without complications; Z79.4 - correction (current) use of insulin Code(s): E11.9 - Type 2 diabetes mellitus without complications Status: Chronic Assessment and Plan: k
[2022-01-03] MEDS: PHYTONADIONE ADULT INJ 10 MG in DEXTROSE 5% IN WATER 50 ML 100 MG IVPB (09:54)
[2022-01-03] MEDS: PANTOPRAZOLE SODIUM IV 40 MG VIAL IV PUSH ×2 (09:54→21:56)
[2022-01-03 10:34] LABS: Glucose Point of Care 102 mg/dl (65-105)
--- NOTE | 2022-01-03 10:46 | PM.IMPN ---
Progress Note: A&P Assessment and Plan (1) Thrombocytopenia: Code(s): D69.6 - Thrombocytopenia, unspecified Status: Acute (2) CHRISTIANE (acute kidney injury): Code(s): N17.9 - Acute kidney failure, unspecified Status: Acute (3) Ascites: Code(s): R18.8 - Other ascites Status: Acute (4) Hypotension: Qualifiers: Hypotension type: hypotension due to drug Qualified Code(s): I95.2 - Hypotension due to drugs Code(s): I95.9 - Hypotension, unspecified Status: Acute (5) Biventricular ICD (implantable cardioverter-defibrillator) in place: Code(s): Z95.810 - Presence of automatic (implantable) cardiac defibrillator Status: Acute (6) Cardiomyopathy: Qualifiers: Cardiomyopathy type: dilated Qualified Code(s): I42.0 - Dilated cardiomyopathy Code(s): I42.9 - Cardiomyopathy, unspecified Status: Chronic (7) Heart failure with reduced ejection fraction: Code(s): I50.20 - Unspecified systolic (congestive) heart failure Status: Acute (8) Erosive gastritis: Code(s): K29.60 - Other gastritis without bleeding Status: Acute (9) Chronic ITP (idiopathic thrombocytopenia): Code(s): D69.3 - Immune thrombocytopenic purpura Status: Acute (10) Cirrhosis: Code(s): K74.60 - Unspecified cirrhosis of liver Status: Acute (11) HTN (hypertension): Qualifiers: Hypertension type: essential hypertension Qualified Code(s): I10 - Essential (primary) hypertension Code(s): I10 - Essential (primary) hypertension Status: Chronic (12) Generalized weakness: Code(s): R53.1 - Weakness Status: Acute (13) Altered mental status: Code(s): R41.82 - Altered mental status, unspecified Status: Acute Plan # generalized weakness and altered mental status. More alert oriented now . No focal deficit. Ammonia level normal. Has underlying hypoglycemia along with possible sepsis. # Hypotension clinically dry. With underlying congestive heart failure and cardiomyopathy will give 500 cc bolus. Discussed with data entry analyst . Blood pressure remains low with lactic acidosis. Started on IV vasopressors. Blood cultures no growth to date. Chest x-ray with bilateral opacities pulmonary edema versus pneumonia. On broad-spectrum antibiotics of vancomycin and cefepime as ordered by ICU. # Lactic acidosis recheck and monitor. Cover with broad-spectrum antibiotics. Still has mild lactic acidosis # Acute on chronic renal failure baseline creatinine in mid 2s. Currently 3.1. Renal has been consulted from the ER appreciated their recommendations # Chronic systolic congestive Heart failure fairly well compensated currently. Watch for any fluid overload. Need to monitor intake and output closely. Cardiology has been consulted from the ER. started on dobutamine infusion for possible acute on chronic systolic congestive Heart failure # Status post biventricular ICD placement # Atrial fibrillation not on anticoagulation # cirrhosis of liver with ascites Needing paracentesis # Chronic thrombocytopenia # Acute on chronic anemia # CKD stage 3 baseline creatinine mid 2s # Diabetes mellitus type 2 on insulin hold insulin due to hypoglycemia and placed on SSI # History of Hypertension # History of GI bleed H&H remained stable no evidence of ongoing GI bleed # Erosive gastritis place on PPI # DVT prophylaxis SCDs due to thrombocytopenia # Code status full code # [facility] resident # Nonambulatory status Subjective Date/time seen: 01/03/22 10:46 Interval history: HPI:this is a 61-year-old male with resident [facility] [place] presents to the ED via EMS for evaluation of generalized weakness and poor p.o. intake.? Is reported to be rib using his medications and not eating or drinking for the past few days.? He was seen for similar
[2022-01-03 15:19] LABS: Lactic Acid Reflex 7.1 mmol/L (0.7-2.0)
--- NOTE | 2022-01-03 17:06 | PM.CNCAR ---
Assessment and Plan Assessment and plan (1) Cardiogenic shock: Code(s): R57.0 - Cardiogenic shock Status: Acute Plan Cardiogenic shock with CHRISTIANE and lactic acidosis Plan Grim prognosis Start milrinone 0.125 Cont Dobutamine Discuss gaols of care History of Present Illness History of Present Illness Consult date/time: 01/03/22 17:06 Reason For Visit: Hypotension, Dehydration Narrative: Patient is poor historian and doesn't respond to most of questions. He presented from residential to ER with generalized weakness and poor PO intake. She was noted to have hypoglycemia, hypotensive with elevated serum creatinine and lactic acid. HE is known to have advanced heart failure and CKD. He was started on dobutamine. Review of Systems Review of Systems: ROS unobtainable: Yes unobtainable due to mental status PMFSH Past Medical History Medical History Acute on chronic anemia Acute on chronic renal failure Ascites Atrial fibrillation Biventricular ICD (implantable cardioverter-defibrillator) in place Cardiomyopathy CHF (congestive heart failure) Chronic ITP (idiopathic thrombocytopenia) Cirrhosis CKD (chronic kidney disease) stage 3, GFR 30-59 ml/min Colon cancer screening Diabetes mellitus Erosive gastritis Heart failure with reduced ejection fraction History of abdominal paracentesis HTN (hypertension) Nonsustained ventricular tachycardia Occult blood in stools Pacemaker Surgical History Surgical History Surgical history unknown Family History Family History Mother Heart failure Social History Social History Social History: Patient resides at [facility]. The patient is listed as a full code. Smoking status: Never smoker Second hand tobacco smoke exposure: Yes Alcohol intake: never Substance use: never Gender identity (if verbalized by the patient): Male Sexual Orientation (if Verbalized by the Patient): Straight or Heterosexual Spiritual care concerns: No Meds Home Medications and Allergies Home Medications Medication Instructions Recorded Confirmed Type multivitamin 1 tablet PO DAILY 11/07/20 01/02/22 History thiamine HCl (vitamin B1) 100 mg 100 mg PO DAILY 11/07/20 01/02/22 History tablet allopurinol 100 mg tablet 100 mg PO DAILY 10/25/21 01/02/22 History ammonium lactate 12 % lotion 1 applic topical DAILY 10/25/21 01/02/22 History carvedilol 3.125 mg tablet 3.125 mg PO BID 10/25/21 01/02/22 History duloxetine 20 mg capsule,delayed 20 mg PO DAILY 10/25/21 01/02/22 History release finasteride 5 mg tablet 5 mg PO DAILY 10/25/21 01/02/22 History furosemide 80 mg tablet 80 mg PO DAILY 10/25/21 01/02/22 History gabapentin 300 mg capsule 300 mg PO HS 10/25/21 01/02/22 History insulin glargine 100 unit/mL 5 unit subcut QPM 10/25/21 01/02/22 History subcutaneous solution (Lantus U-100 Insulin) isosorbide dinitrate 5 mg tablet 5 mg PO BID 10/25/21 01/02/22 History lactulose 10 gram/15 mL oral 20 g PO BID 10/25/21 01/02/22 History solution (Enulose) metolazone 2.5 mg tablet 2.5 mg PO QMWF 10/25/21 01/02/22 History paroxetine HCl 20 mg tablet 20 mg PO DAILY 10/25/21 01/02/22 History pregabalin 225 mg capsule 225 mg PO BID 10/25/21 01/02/22 History ropinirole 0.5 mg tablet 0.5 mg PO HS 10/25/21 01/02/22 History tamsulosin 0.4 mg capsule 0.4 mg PO DAILY 10/25/21 01/02/22 History ferrous sulfate 325 mg (65 mg 325 mg PO BID 11/04/21 01/02/22 History iron) tablet (Iron (ferrous sulfate)) magnesium gluconate 500 mg tablet 500 mg PO DAILY 11/04/21 01/02/22 History bisacodyl 5 mg tablet,delayed 5 mg PO DAILY PRN Constipation #30 11/15/21 01/02/22 Rx release (Laxative (bisacodyl)) tabs lanolin alcohols-mineral 1 ap
[2022-01-03 17:29] LABS: Glucose Point of Care 37 mg/dl (65-105)
[2022-01-03] MEDS: DOBUTamine 250 MG/D5W 250 ML 250 MG/250 ML BAG 13.07 MG IV CONT (17:29)
[2022-01-03] MEDS: DEXTROSE 50% 25 GM/50 ML SYRINGE IV PUSH (17:30)
[2022-01-03 18:24] LABS: Glucose Point of Care 108 mg/dl (65-105)
[2022-01-03] MEDS: SODIUM CHLORIDE 0.9% IV 250 ML 30 ML IV CONT (18:58)
[2022-01-03 21:05] LABS: Glucose Point of Care 65 mg/dl (65-105)
[2022-01-03 22:50] LABS: Glucose Point of Care 122 mg/dl (65-105)
[2022-01-03] MEDS: DEXTROSE 10% 1,000 ML 30 ML IV CONT (23:05)
[2022-01-03 23:19] LABS: Lactic Acid Reflex 6.1 mmol/L (0.7-2.0)
[2022-01-04] VITALS (20 sets, daily range): BP systolic 76–108; BP diastolic 52–95; PULSE 74–120; RESP 14–30; TEMP 35.8–36.6; O2SAT 0–99; BMI 27.3
[2022-01-04] MEDS: ALBUMIN HUMAN 25% 25 GM/100 ML 100 ML IVPB ×2 (00:19→06:17)
[2022-01-04 01:16] LABS: Glucose Point of Care 106 mg/dl (65-105)
[2022-01-04 01:56] LABS: Reflex Lactic Acid Yes or No Add Lactic
[2022-01-04] MEDS: NOREPINEPHRINE 8 MG/D5W 250 ML 8 MG/250 ML BAG 37.5 MG IV CONT (04:10)
[2022-01-04 05:43] LABS: Basophils Percent Auto 0.2 % (0.2-1.2); Eosinophils Absolute Auto 0.1 K/mm3 (0-0.3); Eosinophils Percent Auto 0.9 % (0-4.4); Hemoglobin 8.7 g/dL (14.0-18.0); Immature Granulocyte Absolute 0.09 K/mm3 (0.00-0.031); Immature Platelet Fraction Pct 16.8 % (0.9-11.2); Lymphocytes Percent Auto 11.7 % (18.3-44.2); Mean Corpuscular HGB Conc 31.1 g/dl (32-36); Mean Corpuscular Hemoglobin 29.7 pg (26-34); Mean Corpuscular Volume 95.6 fl (80-100); Mean Platelet Volume 14.3 fl (7.4-10.4); Monocytes Absolute Auto 0.6 K/mm3 (0.1-0.6); Monocytes Percent Auto 6.5 % (2.6-8.5); Neutrophils Absolute Auto 6.8 K/mm3 (1.3-6.7); Neutrophils Percent Auto 79.7 % (45.5-73.1); Nucleated Red Blood Cells Absolute Auto 0.1 K/mm3 (0.0-0.012); Nucleated Red Blood Cells Perc 0.6 % (0.0-0.2); Platelet Count Result 65 k/mm3 (150-375); Red Blood Count 2.93 M/mm3 (4.6-6.20); Red Cell Distribution Width 21.9 % (11.5-14.5); White Blood Count 8.6 K/mm3 (4.5-10.0)
[2022-01-04 05:51] LABS: Albumin Level 2.9 g/dL (3.5-5.1); Anion Gap 20 mmol/L (8-16); Blood Urea Nitrogen 76 mg/dL (9-20); Carbon Dioxide 15 mmol/L (22-30); Chloride 100 mmol/L (98-107); Estimated CRCL calculation 23 ml/min; Estimated Glomerular Filt Rate 22; Glucose 82 mg/dL (65-110); Phosphorus 4.9 mg/dL (2.5-4.5); Potassium 4.4 mmol/L (3.4-5.0); Sodium 135 mmol/L (137-145)
[2022-01-04 05:54] LABS: Lactic Acid 11.6 mmol/L (0.7-2.0)
[2022-01-04 06:19] LABS: Platelet Estimate Decreased (Adequate)
[2022-01-04 06:20] LABS: Crenated RBC 1+ (NORMAL); Ovalocytes 1+ (NORMAL)
[2022-01-04] MEDS: SODIUM BICARBONATE 8.4% 50 MEQ/50 ML SYRINGE 100 MEQ IV PUSH (06:55)
[2022-01-04 07:16] LABS: Magnesium 2.8 mg/dL (1.6-2.3)
[2022-01-04 08:07] LABS: Base Excess ABG -10.4 mEq/l (+/-2.0); Fractional Inspired Oxygen 32 %; HCO3 ABG 13.5 mEq/l (22.0-26.0); Oxygen Content ABG 10.1 %vol (16.0-22.0); PCO2 ABG 24.2 mmHg (35.0-45.0); PO2 FiO2 Ratio Arterial Blood 1.43 %; Total Hemoglobin 9.7 g/dL (12.0-18.0); pH ABG 7.364 (7.350-7.450)
[2022-01-04 08:11] LABS: Device NASAL CANNULA; Modified Allen's Test Pass; Oxygen Saturation ABG 81.5 % (95.0-100.0); PO2 ABG 45.8 mmHg (80.0-100.0); Site Drawn RIGHT BRACHIAL
--- NOTE | 2022-01-04 08:43 | P.PNNP_ITS ---
Progress Note: A&P Assessment and Plan (1) CHRISTIANE (acute kidney injury): Code(s): N17.9 - Acute kidney failure, unspecified Status: Acute Assessment and Plan: * acute kidney injury * renal ultrasound is pending * urinalysis is bland * urine electrolytes are non pre renal * CK is normal * suspect acute insult is multifactorial: * sepsis : blood cultures are negative so far. He is on cefepime and vancomycin. His lactic acid is rising. Possibly has some GI process going on. Surgery has been consulted. * hypotension/hemodynamics instability He is starting norepinephrine. * has an element of baseline cardiorenal syndrome . He has an EF of only 25%, severe pulmonary hypertension, moderate to severe tricuspid regurgitation. So even at his compensated state, he is chronically pre renal. * blood pressure is still very low. he is on 25 of norepinephrine. * His creatinine is rising. His electrolytes are okay. His oxygenation is okay so far. He is too unstable for dialysis. Nothing more to do from the kidney standpoint. (2) Stage 3b chronic kidney disease: Code(s): N18.32 - Chronic kidney disease, stage 3b Status: Chronic Assessment and Plan: * in 2020, creatinine was running 1.7 - 2.3mg/dl * more recently (2021), creatinine has been running 2.3 - 2.7mg/dl (due to disease progression?) * likely due to relative hypotension (due to cardiomyopathy), depressed EF/cardiorenal syndrome, BPH, and diabetes (3) Sepsis: Code(s): A41.9 - Sepsis, unspecified organism Status: Acute Assessment and Plan: * as noted on admission with generalized weakness, low BP, hypoglycemia, hypothermia, lactic acidosis, and CHRISTIANE * source unclear * UA not c/w with UTI * COVID PCR negative * blood NGTD and urine culture negative * possible due to lung infection of bacteremia(?) * GI source? with rising lactate, ischemic bowel is possible. Surgery seeing. * gentle IVF resuscitation (given known cardiomyopathy) along with IV albumin given lactic acidosis * empiric antibiotics * follow culture datea (4) Hypotension: Qualifiers: Hypotension type: hypotension due to drug Qualified Code(s): I95.2 - Hypotension due to drugs Code(s): I95.9 - Hypotension, unspecified Status: Acute Assessment and Plan: * chronic issues at baseline (presumably due to cardiomyopathy) -- usually 90 - 100s systolic at best * however, sepsis and medications could be playing a role * BP medications/diuretics on hold * follow trend of hemodynamics (5) Cardiomyopathy: Qualifiers: Cardiomyopathy type: dilated Qualified Code(s): I42.0 - Dilated cardiomyopathy Code(s): I42.9 - Cardiomyopathy, unspecified Status: Chronic Assessment and Plan: * cardiology saw * as noted by recent echo (11/08/21): * LV dimension is severely enlarged, LA dimension is severely enlarged, LV systolic function severely reduced estimated EF is 20-25%. Grade 2 diastolic dysfunction RV chamber dimension is severely enlarged, RV systolic function is severely reduced. There is moderate to severe tricuspid valve regurgitation. Severe pulmonary hypertension with RVSP of 63 mmHg (6) Anemia: Qualifiers: Anemia type: other cause Other causes of anemia: chronic disease, other Qualified Code(s): D63.8 - Anemia in other chronic diseases classified elsewhere Code(s): D64.9 - Anemia, unspecified Status: Acute Assessmen
--- NOTE | 2022-01-04 08:43 | PM.PNNEP ---
Progress Note: A&P Assessment and Plan (1) CHRISTIANE (acute kidney injury): Code(s): N17.9 - Acute kidney failure, unspecified Status: Acute Assessment and Plan: acute kidney injury renal ultrasound is pending urinalysis is bland urine electrolytes are non pre renal CK is normal suspect acute insult is multifactorial: sepsis : blood cultures are negative so far. He is on cefepime and vancomycin. His lactic acid is rising. Possibly has some GI process going on. Surgery has been consulted. hypotension/hemodynamics instability He is starting norepinephrine. has an element of baseline cardiorenal syndrome . He has an EF of only 25%, severe pulmonary hypertension, moderate to severe tricuspid regurgitation. So even at his compensated state, he is chronically pre renal. blood pressure is still very low. he is on 25 of norepinephrine. His creatinine is rising. His electrolytes are okay. His oxygenation is okay so far. He is too unstable for dialysis. Nothing more to do from the kidney standpoint. (2) Stage 3b chronic kidney disease: Code(s): N18.32 - Chronic kidney disease, stage 3b Status: Chronic Assessment and Plan: in 2020, creatinine was running 1.7 - 2.3mg/dl more recently (2021), creatinine has been running 2.3 - 2.7mg/dl (due to disease progression?) likely due to relative hypotension (due to cardiomyopathy), depressed EF/cardiorenal syndrome, BPH, and diabetes (3) Sepsis: Code(s): A41.9 - Sepsis, unspecified organism Status: Acute Assessment and Plan: as noted on admission with generalized weakness, low BP, hypoglycemia, hypothermia, lactic acidosis, and CHRISTIANE source unclear UA not c/w with UTI COVID PCR negative blood NGTD and urine culture negative possible due to lung infection of bacteremia(?) GI source? with rising lactate, ischemic bowel is possible. Surgery seeing. gentle IVF resuscitation (given known cardiomyopathy) along with IV albumin given lactic acidosis empiric antibiotics follow culture datea (4) Hypotension: Qualifiers: Hypotension type: hypotension due to drug Qualified Code(s): I95.2 - Hypotension due to drugs Code(s): I95.9 - Hypotension, unspecified Status: Acute Assessment and Plan: chronic issues at baseline (presumably due to cardiomyopathy) -- usually 90 - 100s systolic at best however, sepsis and medications could be playing a role BP medications/diuretics on hold follow trend of hemodynamics (5) Cardiomyopathy: Qualifiers: Cardiomyopathy type: dilated Qualified Code(s): I42.0 - Dilated cardiomyopathy Code(s): I42.9 - Cardiomyopathy, unspecified Status: Chronic Assessment and Plan: cardiology saw as noted by recent echo (11/08/21): LV dimension is severely enlarged, LA dimension is severely enlarged, LV systolic function severely reduced estimated EF is 20-25%. Grade 2 diastolic dysfunction RV chamber dimension is severely enlarged, RV systolic function is severely reduced. There is moderate to severe tricuspid valve regurgitation. Severe pulmonary hypertension with RVSP of 63 mmHg (6) Anemia: Qualifiers: Anemia type: other cause Other causes of anemia: chronic disease, other Qualified Code(s): D63.8 - Anemia in other chronic diseases classified elsewhere Code(s): D64.9 - Anemia, unspecified Status: Acute Assessment and Plan: likely due to acute illness, CHRISTIANE, CKD, and chronic disease hb up some after prbc administration (7) Generalized weakness: Code(s): R53.1 - Weakness Status: Acute Assessment and Plan: suspect multifactorial: acute on chronic hypotension hypoglycemia possible infection sepsis continue therapy as outlined (8) Diabetes mellitus: Qualifiers: Diabetes mellitus type: type 2 Diabetes mellitus jail insulin use: óscar
[2022-01-04] MEDS: PANTOPRAZOLE SODIUM IV 40 MG VIAL IV PUSH ×2 (09:13→20:14)
[2022-01-04 09:25] LABS: Glucose Point of Care 81 mg/dl (65-105)
[2022-01-04] MEDS: NOREPINEPHRINE 8 MG/D5W 250 ML 8 MG/250 ML BAG 33.75 MG IV CONT (09:46)
[2022-01-04] MEDS: EUCERIN CREAM 120 GM JAR 1 APPLIC TOPICAL (11:14)
[2022-01-04] MEDS: SILVERGEL (ELTA) 45 ML 1 APPLIC TOPICAL (11:15)
--- NOTE | 2022-01-04 11:33 | PM.PNCARD ---
Progress Note: A&P Assessment and Plan (1) Cardiogenic shock: Code(s): R57.0 - Cardiogenic shock Status: Acute (2) Cardiomyopathy: Qualifiers: Cardiomyopathy type: dilated Qualified Code(s): I42.0 - Dilated cardiomyopathy Code(s): I42.9 - Cardiomyopathy, unspecified Status: Chronic Plan This is a 61-year-old patient that apparently has a longstanding nonischemic cardiomyopathy is in the hospital now with septic shock on top of all that. Despite aggressive pressor/inotropic support he is doing poorly. The patient appears to be preterminal from what I can see regarding his clinical status with worsening lactic acidosis. Aggressive support is going to be continued as long as that is what is desired by the family/POA. Patient's prognosis appears to be grave in my opinion I would support the decision for DNR orders as do not think the patient will survive this hospitalization and resuscitating him is unlikely to be in his best interest John Palma MD [facility] Subjective Date/time seen: Date of service: 01/04/22 11:33 Interval history: 61-year-old man with: Severe nonischemic cardiomyopathy presenting with what appears to be combination of septic and cardiogenic shock. Despite aggressive support in the ICU he has lactic acidosis seems to be worsening. The patient is arousable but incoherent. Exam Const: Other: Very ill-appearing black male arousable but incoherent HENMT: Mouth: Yes dry mucous membranes Eyes: Sclera: sclerae normal Neck: Neck: supple Resp: Other: Central rhonchi noted bilaterally Cardio: Rate: regular rate Rhythm: regular rhythm Other: Paced rhythm/soft systolic murmur at the left sternal border without radiation. GI: GI Palp: Yes Soft to palpation Auscultation: normal bowel sounds Skin: General skin exam: normal color Neuro: Other: Responsive but incoherent Extrem: Other: Extremities are cool/ poor perfusion Objective Data Vital Signs Vital Signs: Vital Signs - 24 hr 01/03/22 12:00 01/03/22 12:00 01/03/22 12:00 Temperature 36.6 C Pulse Rate 77 89 89 Respiratory Rate 18 Blood Pressure 99/79 L Pulse Oximetry 98 99 Oxygen Delivery Nasal Cannula Oxygen Flow Rate 1 Fraction of Inspired Oxygen 01/03/22 14:00 01/03/22 14:00 01/03/22 16:00 Temperature 36.7 C 36.7 C Pulse Rate 83 77 81 Respiratory Rate 18 17 Blood Pressure 97/59 L 101/62 Pulse Oximetry 93 91 Oxygen Delivery Oxygen Flow Rate Fraction of Inspired Oxygen 01/03/22 16:00 01/03/22 16:00 01/03/22 17:50 Temperature 36.9 C Pulse Rate 77 80 81 Respiratory Rate 13 Blood Pressure 104/79 Pulse Oximetry 95 100 Oxygen Delivery Room Air Oxygen Flow Rate Fraction of Inspired Oxygen 01/03/22 17:46 01/03/22 18:00 01/03/22 18:00 Temperature 36.9 C Pulse Rate 81 87 Respiratory Rate 18 Blood Pressure 104/79 115/84 Pulse Oximetry 99 Oxygen Delivery Oxygen Flow Rate Fraction of Inspired Oxygen 01/03/22 18:10 01/03/22 20:03 01/03/22 20:09 Temperature 36.9 C Pulse Rate 84 84 84 Respiratory Rate 18 18 Blood Pressure 118/83 Pulse Oximetry 95 99 Oxygen Delivery Nasal Cannula Oxygen Flow Rate 2 Fraction of Inspired Oxygen 01/03/22 20:09 01/03/22 22:00 01/03/22 22:00 Temperature 36.9 C 36.8 C Pulse Rate 76 82 78 Respiratory Rate 18 18 Blood Pressure 146/75 H 97/76 L Pulse Oximetry 95 96 Oxygen Delivery Oxygen Flow Rate Fraction of Inspired Oxygen 01/03/22 23:30 01/03/22 23:54 01/04/22 00:00 Temperature Pulse Rate 82 92 Respiratory Rate Blood Pressure 67/58 L 76/60 L Pulse Oximetry Oxygen Delivery Oxygen Flow Rate Fraction of Inspired Oxygen 01/04/22 00:00 01/04/22 00:00 01/04/22 00:30 Temperature 36.6 C Pulse Rate 84 84 75 Respiratory Rate 18 18 20 Blood Pressure 76/60 L 108/88 Pulse Oximetry 96 95 98 Oxygen Delivery Nasal C
--- NOTE | 2022-01-04 12:01 | PM.CNGS ---
Assessment and Plan Assessment and plan (1) Lactic acidosis: Code(s): E87.2 - Acidosis Status: Acute Assessment and Plan: This is the reason for our consultation. Patient presented with what appears to be a combination of cardiogenic shock and sepsis. He is currently on two vasopressors in the ICU and despite aggressive medical management, he is not showing much improvement. His lactic acid continues to climb with a peak of 11.6 this morning and there is a question of possible ischemic bowel. This is a possibility considering his elevated lactic acid, although he is not complaining of abdominal pain and his abdominal exam is largely benign. Regardless, the patient has multiple co-morbidities and is too unstable at this time to survive surgery. Proceeding with exploratory surgery at this point would likely be futile. We have discussed this with the Cooler Supervisor who plans on speaking with the patient's POA again to discuss code status, but if they are wanting to continue with aggressive treatment, then we would recommend to continue with medical management and ICU care. No plans for surgical intervention at this time. It seems that overall prognosis is poor. Thank you for allowing us to see the patient in consultation and we will continue to follow along with you. (2) Sepsis: Code(s): A41.9 - Sepsis, unspecified organism Status: Acute (3) Cardiogenic shock: Code(s): R57.0 - Cardiogenic shock Status: Acute (4) Cardiomyopathy: Qualifiers: Cardiomyopathy type: dilated Qualified Code(s): I42.0 - Dilated cardiomyopathy Code(s): I42.9 - Cardiomyopathy, unspecified Status: Chronic (5) Heart failure with reduced ejection fraction: Code(s): I50.20 - Unspecified systolic (congestive) heart failure Status: Acute (6) Biventricular ICD (implantable cardioverter-defibrillator) in place: Code(s): Z95.810 - Presence of automatic (implantable) cardiac defibrillator Status: Acute (7) CHRISTIANE (acute kidney injury): Code(s): N17.9 - Acute kidney failure, unspecified Status: Acute (8) Cirrhosis: Code(s): K74.60 - Unspecified cirrhosis of liver Status: Acute (9) Acute on chronic renal failure: Qualifiers: Acute renal failure type: unspecified Chronic kidney disease stage: stage 3 (moderate) Code(s): N17.9 - Acute kidney failure, unspecified; N18.9 - Chronic kidney disease, unspecified Status: Acute (10) Anemia: Qualifiers: Anemia type: other cause Other causes of anemia: chronic disease, other Qualified Code(s): D63.8 - Anemia in other chronic diseases classified elsewhere Code(s): D64.9 - Anemia, unspecified Status: Acute (11) Chronic ITP (idiopathic thrombocytopenia): Code(s): D69.3 - Immune thrombocytopenic purpura Status: Acute (12) Diabetes mellitus: Qualifiers: Diabetes mellitus complication status: without complication Diabetes mellitus middle or intermediate school principal insulin use: with middle or intermediate school principal use Diabetes mellitus type: type 2 Qualified Code(s): E11.9 - Type 2 diabetes mellitus without complications; Z79.4 - termite treater helper (current) use of insulin Code(s): E11.9 - Type 2 diabetes mellitus without complications Status: Chronic (13) Atrial fibrillation: Qualifiers: Atrial fibrillation type: unspecified Qualified Code(s): I48.91 - Unspecified atrial fibrillation Code(s): I48.91 - Unspecified atrial fibrillation Status: Chronic Plan I have discussed the patient's case and plan of care with Dr. Guy. History of Present Illness Consult details Consult date: 01/04/22 Reason for consult: other (Lactic acidosis, possible ischemic bowel) Requesting physician: Clay Fernando MD Narrative: This is a 61-year-old male with history of anemia, hypertension, hypoglycemia, atrial fibrillation not on oral anticoagulation, chronic ITP, conge
--- NOTE | 2022-01-04 13:12 | WPDINTPN ---
Progress Note: A&P Assessment and Plan (1) Septic shock: Code(s): A41.9 - Sepsis, unspecified organism; R65.21 - Severe sepsis with septic shock Status: Acute Assessment and Plan: Patient presented with generalized weakness, hypotension, hypoglycemia, decreased body temperature, elevated lactic acid, acute on chronic kidney disease -source is unclear but could be related to lungs of bloodstream infection -UA was not reflective of UTI -SARS-CoV-2 PCR was negative -patient was adequately fluid-resuscitated given his severe cardiomyopathy with an EF of 20-25% and grade 2 diastolic dysfunction -patient with acute on chronic kidney disease, minimal urine output -lactic acid was 4.0 on admission, this morning it is 11.6 -patient also received 1 unit of packed RBCs given his lactic acid was elevated, patient in septic shock, anemic, PRBCs were transfused to improve end organ perfusion -surgery was consulted, possible ischemic bowel, discussed with surgeon patient too unstable to be taken for surgery, continue medical management -continue cefepime and vancomycin (01/02) -01/02/2022: Blood cultures: Preliminary results are negative x2 -01/02/2022 urine cultures: Negative -01/03: Right femoral central line was placed -patient remains on Levophed at 20 mcg/minute, SBP > 100 mmHg -patient also on dobutamine possible cardiogenic shock (2) Cardiogenic shock: Code(s): R57.0 - Cardiogenic shock Status: Acute Assessment and Plan: EF of 20-25% with grade 2 diastolic dysfunction, possible cardiogenic shock on dobutamine at this time -cardiology evaluated the patient, states he has got poor prognosis, nothing to offer at this time (3) Hypotension: Qualifiers: Hypotension type: hypotension due to drug Qualified Code(s): I95.2 - Hypotension due to drugs Code(s): I95.9 - Hypotension, unspecified Status: Acute Assessment and Plan: Hypotension could be related to sepsis, medications as he is on carvedilol, finasteride, furosemide, isosorbide dinitrate, metolazone at the [facility] -will hold all antihypertensive medications -reviewing his chart patient has normal systolic blood pressures have been between upper 80s to low 100s. (4) Generalized weakness: Code(s): R53.1 - Weakness Status: Acute Assessment and Plan: Patient with generalized weakness could be related to hypotension, hypoglycemia, sepsis/infection -continue monitor and treat underlying cause (5) Thrombocytopenia: Code(s): D69.6 - Thrombocytopenia, unspecified Status: Acute Assessment and Plan: Patient has a history of ITP and chronic thrombocytopenia -no obvious bleeding noted -continue to monitor for bleeding and platelet counts (6) Heart failure with reduced ejection fraction: Code(s): I50.20 - Unspecified systolic (congestive) heart failure Status: Acute Assessment and Plan: 11/08/2021 echocardiogram: Shows LV dimension is severely enlarged, LA dimension is severely enlarged, LV systolic function severely reduced estimated EF is 20-25%. Grade 2 diastolic dysfunction, RV chamber dimension is severely enlarged, RV systolic function is severely reduced. There is moderate to severe tricuspid valve regurgitation. Severe pulmonary hypertension with RVSP of 63 mmHg Patient with known cardiomyopathy, has been on Coreg, Lasix, isosorbide dinitrate, metolazone at [facility]. Currently on hold Cardiology following the patient (7) Acute on chronic renal failure: Qualifiers: Acute renal failure type: unspecified Chronic kidney disease stage: stage 3 (moderate) Code(s): N17.9 - Acute kidney failure, unspecified; N18.9 - Chronic kidney disease, unspecified Status: Acute Assessment and Plan: Patient presented with acute on chronic kidney disease likely related to sepsis, hypotension, infection, medication related -fluids cautiously given EF of
[2022-01-04 13:26] LABS: Glucose Point of Care 85 mg/dl (65-105)
[2022-01-04 13:26] LABS: Glucose Point of Care 47 mg/dl (65-105)
[2022-01-04] MEDS: DEXTROSE 50% 25 GM/50 ML SYRINGE IV PUSH (20:02)
--- NOTE | 2022-01-04 21:46 | PC.NURSE ---
Spoke with Misty, pt's POA. She states that she would like for pt to receive pain medication. States that she is aware that it could drop his already low blood pressure, but that she would prefer that he be more comfortable. Discussed hospice/comfort care with Misty, who states she is not ready to remove pressers. Also states that if pain medication were to drop his bp anymore, she would want more pressers added in attempt to keep bp elevated. Attempted to facetime with Misty, but pt was too drowsy to participate in a conversation.
[2022-01-04] MEDS: NOREPINEPHRINE 8 MG/D5W 250 ML 8 MG/250 ML BAG 41.25 MG IV CONT (22:14)
[2022-01-04] MEDS: fentaNYL CITRATE INJ (*CRX) 100 MCG/2 ML VIAL 12.5 MCG IV PUSH (23:16)
[2022-01-05] VITALS (34 sets, daily range): BP systolic 70–107; BP diastolic 23–84; PULSE 60–90; RESP 17–26; TEMP 35.5–37.4; O2SAT 0–99
[2022-01-05] MEDS: BISACODYL 10 MG SUPPOSITORY RECTAL (00:06)
[2022-01-05] MEDS: fentaNYL CITRATE INJ (*CRX) 100 MCG/2 ML VIAL 12.5 MCG IV PUSH (02:57)
[2022-01-05] MEDS: IPRATROPIUM BR 0.02% INH SOLN 0.5 MG/2.5 ML VIAL INHALATION (03:19)
[2022-01-05] MEDS: ALBUTEROL SULFATE NEB 2.5 MG/3 ML INH 5 MG INHALATION (03:19)
[2022-01-05] MEDS: NOREPINEPHRINE 8 MG/D5W 250 ML 8 MG/250 ML BAG 56.25 MG IV CONT ×3 (04:13→12:42)
[2022-01-05] MEDS: VASOPRESSIN INJ 100 UNITS in DEXTROSE 5% 95 ML IV CONT (04:13)
[2022-01-05 05:44] LABS: Basophils Percent Auto 0.2 % (0.2-1.2); Eosinophils Absolute Auto 0.1 K/mm3 (0-0.3); Eosinophils Percent Auto 0.4 % (0-4.4); Hematocrit 28.2 % (42.0-52.0); Hemoglobin 8.9 g/dL (14.0-18.0); Immature Granulocyte Absolute 0.04 K/mm3 (0.00-0.031); Immature Granulocyte Percent A 0.3 % (0-0.5); Immature Platelet Fraction Pct 16.3 % (0.9-11.2); Lymphocytes Absolute Auto 0.64 K/mm3 (0.9-3.2); Mean Corpuscular HGB Conc 31.6 g/dl (32-36); Mean Corpuscular Hemoglobin 30.6 pg (26-34); Mean Corpuscular Volume 96.9 fl (80-100); Mean Platelet Volume 12.8 fl (7.4-10.4); Monocytes Absolute Auto 0.6 K/mm3 (0.1-0.6); Monocytes Percent Auto 4.8 % (2.6-8.5); Neutrophils Absolute Auto 11.5 K/mm3 (1.3-6.7); Neutrophils Percent Auto 89.3 % (45.5-73.1); Nucleated Red Blood Cells Absolute Auto 0.1 K/mm3 (0.0-0.012); Nucleated Red Blood Cells Perc 0.9 % (0.0-0.2); Platelet Count Result 62 k/mm3 (150-375); Red Blood Count 2.91 M/mm3 (4.6-6.20); Red Cell Distribution Width 21.9 % (11.5-14.5); White Blood Count 12.8 K/mm3 (4.5-10.0)
[2022-01-05 05:51] LABS: Albumin Level 2.8 g/dL (3.5-5.1); Alkaline Phosphatase 106 U/L (38-126); Anion Gap 24 mmol/L (8-16); Aspartate Amino Transferase 218 U/L (17-59); Bilirubin,Total 5.8 mg/dL (0.2-1.3); Blood Urea Nitrogen 77 mg/dL (9-20); Calcium 6.9 mg/dL (8.4-10.2); Carbon Dioxide 13 mmol/L (22-30); Chloride 99 mmol/L (98-107); Estimated CRCL calculation 22 ml/min; Estimated Glomerular Filt Rate 21; Glucose 78 mg/dL (65-110); Lipase 53 U/L (23-300); Magnesium 2.6 mg/dL (1.6-2.3); Phosphorus 6.6 mg/dL (2.5-4.5); Potassium 4.9 mmol/L (3.4-5.0); Sodium 136 mmol/L (137-145)
[2022-01-05 05:58] LABS: INR 4.3; Prothrombin Time 40.2 Seconds (11.1-14.7)
[2022-01-05 05:59] LABS: Partial Thromboplastin Time 54.4 SECONDS (22.3-36.8)
[2022-01-05 06:07] LABS: Alanine Aminotransferase 79 U/L (6-50)
[2022-01-05 06:34] LABS: Lactic Acid Reflex 15.4 mmol/L (0.7-2.0)
[2022-01-05] MEDS: DEXTROSE 10% 1,000 ML 30 ML IV CONT (06:44)
[2022-01-05] MEDS: DOBUTamine 250 MG/D5W 250 ML 250 MG/250 ML BAG 13.07 MG IV CONT (06:45)
--- NOTE | 2022-01-05 07:27 | PM.PNCARD ---
Progress Note: A&P Assessment and Plan (1) Septic shock: Code(s): A41.9 - Sepsis, unspecified organism; R65.21 - Severe sepsis with septic shock Status: Acute (2) Cardiogenic shock: Code(s): R57.0 - Cardiogenic shock Status: Acute Plan 61-year-old man with severe dilated nonischemic cardiomyopathy and cardiogenic and septic shock. His lactic acidosis is climbing he is on essentially maximal pressor support. Fortunately the family has made him a DNR patient. At this point I would recommend therefore contacting his pacemaker/ ICD advertising representative and have them turn off the VT therapies so that he is not receiving shocks should he developed sustained ventricular tachycardia. John Palma MD [facility] Subjective Date/time seen: date of service:01/05/22 07:27 Interval history: Follow-up visit in this 61-year-old man with: Severe dilated nonischemic cardiomyopathy with care delivered elsewhere. Now admitted with both septic and cardiogenic shock. Patient is being managed with antibiotics and aggressive pressor support in the ICU. He remains arousable but incoherent. Despite grave prognosis family continues to desire aggressive supportive care. Exam Const: Other: Incoherent black male HENMT: Mouth: Yes dry mucous membranes Eyes: Sclera: sclerae normal Neck: Neck: supple and no JVD Resp: Effort & Inspection: normal respiratory effort Auscultation: clear to auscultation bilaterally Cardio: Rate: regular rate Rhythm: regular rhythm Other: paced rhythm GI: GI Palp: Yes Soft to palpation Auscultation: normal bowel sounds Urinary Catheter: Urinary Catheter: patent and draining Skin: General skin exam: normal color Neuro: Other: arousable but incoherent Extrem: Other: no edema extremities cool and hypoperfused Objective Data Vital Signs Vital Signs: Vital Signs - 24 hr 01/04/22 08:00 01/04/22 08:00 01/04/22 08:00 Temperature 36.2 C L Pulse Rate 80 80 80 Respiratory Rate 14 14 Blood Pressure 95/72 L Pulse Oximetry 91 91 Oxygen Delivery Nasal Cannula Oxygen Flow Rate 3 01/04/22 09:46 01/04/22 09:46 01/04/22 10:00 Temperature Pulse Rate 78 78 79 Respiratory Rate Blood Pressure 102/82 102/82 Pulse Oximetry Oxygen Delivery Oxygen Flow Rate 01/04/22 10:00 01/04/22 12:00 01/04/22 12:00 Temperature 36.2 C L Pulse Rate 79 78 78 Respiratory Rate 16 15 Blood Pressure 96/70 L Pulse Oximetry 93 93 Oxygen Delivery Nasal Cannula Oxygen Flow Rate 3 01/04/22 12:00 01/04/22 14:00 01/04/22 14:00 Temperature 36.2 C L 36.1 C L Pulse Rate 78 75 75 Respiratory Rate 15 16 Blood Pressure 92/65 L 107/95 H Pulse Oximetry 93 Oxygen Delivery Oxygen Flow Rate 01/04/22 16:00 01/04/22 16:00 01/04/22 16:00 Temperature 35.8 C L Pulse Rate 75 75 75 Respiratory Rate 16 18 Blood Pressure 96/74 L Pulse Oximetry 90 97 Oxygen Delivery Nasal Cannula Oxygen Flow Rate 3 01/04/22 18:00 01/04/22 18:00 01/04/22 14:05 Temperature 35.8 C L Pulse Rate 75 75 77 Respiratory Rate 18 Blood Pressure 96/74 L Pulse Oximetry 97 Oxygen Delivery Oxygen Flow Rate 01/04/22 20:11 01/04/22 20:00 01/04/22 20:00 Temperature 36.0 C L Pulse Rate 89 88 Respiratory Rate 21 H Blood Pressure 102/78 101/76 Pulse Oximetry 0 L Oxygen Delivery Nasal Cannula Oxygen Flow Rate 4 01/04/22 20:00 01/04/22 22:00 01/04/22 22:00 Temperature 36.0 C L Pulse Rate 75 94 88 Respiratory Rate 19 Blood Pressure 94/70 L Pulse Oximetry 93 Oxygen Delivery Oxygen Flow Rate 01/04/22 22:14 01/04/22 20:00 01/05/22 00:00 Temperature Pulse Rate 89 77 90 Respiratory Rate Blood Pressure 94/70 L Pulse Oximetry 99 Oxygen Delivery Nasal Cannula Oxygen Flow Rate 4 01/05/22 00:00 01/05/22 00:00 01/05/22 02:00 Temperature 35.9 C L Pulse Rate 83 80 Respiratory Rate 1
[2022-01-05] MEDS: PANTOPRAZOLE SODIUM IV 40 MG VIAL IV PUSH (08:02)
[2022-01-05] MEDS: EUCERIN CREAM 120 GM JAR 1 APPLIC TOPICAL (08:20)
[2022-01-05] MEDS: SILVERGEL (ELTA) 45 ML 1 APPLIC TOPICAL (08:21)
[2022-01-05 08:24] LABS: Glucose Point of Care 112 mg/dl (65-105)
[2022-01-05 08:35] LABS: Reflex Lactic Acid Yes or No Add Lactic
[2022-01-05 08:58] LABS: Fibrinogen 229 mg/dl (215-510)
[2022-01-05] MEDS: SODIUM BICARBONATE 8.4% 50 MEQ/50 ML SYRINGE 100 MEQ IV PUSH (09:20)
[2022-01-05 09:23] LABS: Lactic Acid 14.8 mmol/L (0.7-2.0)
[2022-01-05] MEDS: CALCIUM CHLOR 1,000MG/100ML NS 1,000 MG/100 ML BAG 100 MG IVPB (09:36)
[2022-01-05 09:46] LABS: Vancomycin Trough 12.7 ug/mL (10.0-20.0)
--- NOTE | 2022-01-05 10:17 | PCFNICU ---
ICU Rounding Note: Pt current nutrition is NPO. Nutrition recommendation: No recommendations at this time Last recorded weight is 100.1 kg -up from 94kg on admit. Bowel Motility: +BM / Labs Reviewed: Hb.9, HCT:28.2, NA:136, BUN:77, Cr:3.6, Glu:112 Meds Noted: novolog, MVI, protonix Skin: macerated area to buttocks Additional Notes: Pt remains NPO, no nutrition support as pt is now DNR/DNI. Following daily in ICU rounds. Will monitor for any changes in diet orders/alternative nutrition support, wt, labs. Follow up in 3 days. .
--- NOTE | 2022-01-05 10:43 | WPDINTPN ---
Progress Note: A&P Assessment and Plan (1) Septic shock: Code(s): A41.9 - Sepsis, unspecified organism; R65.21 - Severe sepsis with septic shock Status: Acute Assessment and Plan: Patient presented with generalized weakness, hypotension, hypoglycemia, decreased body temperature, elevated lactic acid, acute on chronic kidney disease -source is unclear but could be related to lungs or bloodstream infection -UA was not reflective of UTI -SARS-CoV-2 PCR was negative -patient was adequately fluid-resuscitated and further fluids were held given his severe cardiomyopathy with an EF of 20-25% and grade 2 diastolic dysfunction -patient with acute on chronic kidney disease, minimal urine output -lactic acid was 4.0 on admission, this morning has increased to 15 -patient also received 1 unit of packed RBCs given his lactic acid was elevated, patient in septic shock, anemic, PRBCs were transfused to improve end organ perfusion -surgery was consulted, possible ischemic bowel, discussed with surgeon deemed patient patient too unstable to be taken for surgery and recommended continuing medical management -continue cefepime and vancomycin (01/02) -01/02/2022: Blood cultures: Preliminary results are negative x2 -01/02/2022 urine cultures: Negative till now -01/03: Right femoral central line was placed -patient remains on Levophed at 20 mcg/minute, vasopressin and Brian-Synephrine -patient also on dobutamine possible cardiogenic shock -IV bicarb ordered (2) Cardiogenic shock: Code(s): R57.0 - Cardiogenic shock Status: Acute Assessment and Plan: EF of 20-25% with grade 2 diastolic dysfunction, possible cardiogenic shock on dobutamine at this time -cardiology evaluated the patient, states he has got poor prognosis, nothing additional to offer at this time (3) Generalized weakness: Code(s): R53.1 - Weakness Status: Acute Assessment and Plan: Patient with generalized weakness could be related to hypotension, hypoglycemia, sepsis/infection -continue monitor and treat underlying cause (4) Thrombocytopenia: Code(s): D69.6 - Thrombocytopenia, unspecified Status: Acute Assessment and Plan: Patient has a history of ITP and chronic thrombocytopenia -no obvious bleeding noted -continue to monitor for bleeding and platelet counts (5) Heart failure with reduced ejection fraction: Code(s): I50.20 - Unspecified systolic (congestive) heart failure Status: Acute Assessment and Plan: 11/08/2021 echocardiogram: Shows LV dimension is severely enlarged, LA dimension is severely enlarged, LV systolic function severely reduced estimated EF is 20-25%. Grade 2 diastolic dysfunction, RV chamber dimension is severely enlarged, RV systolic function is severely reduced. There is moderate to severe tricuspid valve regurgitation. Severe pulmonary hypertension with RVSP of 63 mmHg Patient with known cardiomyopathy, has been on Coreg, Lasix, isosorbide dinitrate, metolazone at long term. Currently on hold Cardiology following the patient (6) Acute on chronic renal failure: Qualifiers: Acute renal failure type: unspecified Chronic kidney disease stage: stage 3 (moderate) Code(s): N17.9 - Acute kidney failure, unspecified; N18.9 - Chronic kidney disease, unspecified Status: Acute Assessment and Plan: Patient presented with acute on chronic kidney disease likely related to sepsis, hypotension, infection, medication related -fluids cautiously given EF of only 20-25% with severe pulmonary hypertension, left and right heart failure -lactic acid continues to be elevated -patient with history of acute on chronic kidney disease, creatinine up to 3.1 this admission, will hold all antihypertensives -continue to monitor urine output for which a Romero catheter was placed -continue monitor renal function and electrolytes -01/04/2022: Renal ultrasound shows normal kidneys wit
--- NOTE | 2022-01-05 11:10 | PC.NURSE ---
1050-Spoke with Bossmansunday Ortiz patient's POA via telephone and facetime call , she has okayed the turning off the therapy session portion of Clark's AICD. [employer] called at awaiting on rep to return call.
[2022-01-05] MEDS: MORPHINE SULFATE (*CRX) 2 MG/ML INJ IV PUSH ×2 (11:32→14:21)
[2022-01-05] MEDS: LORazepam INJ (*CRX) 2 MG/ML VIAL 1 MG IV PUSH (12:42)
[2022-01-05 12:48] LABS: Glucose Point of Care 74 mg/dl (65-105)
[2022-01-05] MEDS: SODIUM BICARBONATE 8.4% 50 MEQ/50 ML SYRINGE IV PUSH (12:49)
--- NOTE | 2022-01-05 14:00 | P.PNNP_ITS ---
Progress Note: A&P Assessment and Plan (1) CHRISTIANE (acute kidney injury): Code(s): N17.9 - Acute kidney failure, unspecified Status: Acute Assessment and Plan: * acute kidney injury * renal ultrasound is pending * urinalysis is bland * urine electrolytes are non pre renal * CK is normal * suspect acute insult is multifactorial: * sepsis : blood cultures are negative so far. He is on cefepime and vancomycin. His lactic acid is rising. Possibly has some GI process going on. Surgery has been consulted. * hypotension/hemodynamics instability He is starting norepinephrine. * has an element of baseline cardiorenal syndrome . He has an EF of only 25%, severe pulmonary hypertension, moderate to severe tricuspid regurgitation. So even at his compensated state, he is chronically pre renal. * blood pressure is still very low. he is on 25 of norepinephrine , vasopressin, dobutamine, and is about to start phenylephrine.. * His creatinine is up a little bit more today. It is now 3.6. Urine output is still very low. He is still hypotensive as above. Overall prognosis is grim. I do not think he would tolerate dialysis. (2) Stage 3b chronic kidney disease: Code(s): N18.32 - Chronic kidney disease, stage 3b Status: Chronic Assessment and Plan: * in 2020, creatinine was running 1.7 - 2.3mg/dl * more recently (2021), creatinine has been running 2.3 - 2.7mg/dl (due to disease progression?) * likely due to relative hypotension (due to cardiomyopathy), depressed EF/cardiorenal syndrome, BPH, and diabetes (3) Sepsis: Code(s): A41.9 - Sepsis, unspecified organism Status: Acute Assessment and Plan: * as noted on admission with generalized weakness, low BP, hypoglycemia, hypothermia, lactic acidosis, and CHRISTIANE * source unclear * UA not c/w with UTI * COVID PCR negative * blood NGTD and urine culture negative * possible due to lung infection of bacteremia(?) * Lactic acid still high. * gentle IVF resuscitation (given known cardiomyopathy) along with IV albumin given lactic acidosis * empiric antibiotics, cefepime and vancomycin. * follow culture datea (4) Hypotension: Qualifiers: Hypotension type: hypotension due to drug Qualified Code(s): I95.2 - Hypotension due to drugs Code(s): I95.9 - Hypotension, unspecified Status: Acute Assessment and Plan: * chronic issues at baseline (presumably due to cardiomyopathy) -- usually 90 - 100s systolic at best * however, sepsis and medications could be playing a role (5) Cardiomyopathy: Qualifiers: Cardiomyopathy type: dilated Qualified Code(s): I42.0 - Dilated cardiomyopathy Code(s): I42.9 - Cardiomyopathy, unspecified Status: Chronic Assessment and Plan: * cardiology saw * as noted by recent echo (11/08/21): * LV dimension is severely enlarged, LA dimension is severely enlarged, LV systolic function severely reduced estimated EF is 20-25%. Grade 2 diastolic dysfunction RV chamber dimension is severely enlarged, RV systolic function is severely reduced. There is moderate to severe tricuspid valve regurgitation. Severe pulmonary hypertension with RVSP of 63 mmHg (6) Anemia: Qualifiers: Anemia type: other cause Other causes of anemia: chronic disease, other Qualified Code(s): D63.8 - Anemia in other chronic diseases classified elsewhere Code(s): D64.9 - Anemia, unspecified Status: Acute Assessment
--- NOTE | 2022-01-05 14:00 | PM.PNNEP ---
Progress Note: A&P Assessment and Plan (1) CHRISTIANE (acute kidney injury): Code(s): N17.9 - Acute kidney failure, unspecified Status: Acute Assessment and Plan: acute kidney injury renal ultrasound is pending urinalysis is bland urine electrolytes are non pre renal CK is normal suspect acute insult is multifactorial: sepsis : blood cultures are negative so far. He is on cefepime and vancomycin. His lactic acid is rising. Possibly has some GI process going on. Surgery has been consulted. hypotension/hemodynamics instability He is starting norepinephrine. has an element of baseline cardiorenal syndrome . He has an EF of only 25%, severe pulmonary hypertension, moderate to severe tricuspid regurgitation. So even at his compensated state, he is chronically pre renal. blood pressure is still very low. he is on 25 of norepinephrine , vasopressin, dobutamine, and is about to start phenylephrine.. His creatinine is up a little bit more today. It is now 3.6. Urine output is still very low. He is still hypotensive as above. Overall prognosis is grim. I do not think he would tolerate dialysis. (2) Stage 3b chronic kidney disease: Code(s): N18.32 - Chronic kidney disease, stage 3b Status: Chronic Assessment and Plan: in 2020, creatinine was running 1.7 - 2.3mg/dl more recently (2021), creatinine has been running 2.3 - 2.7mg/dl (due to disease progression?) likely due to relative hypotension (due to cardiomyopathy), depressed EF/cardiorenal syndrome, BPH, and diabetes (3) Sepsis: Code(s): A41.9 - Sepsis, unspecified organism Status: Acute Assessment and Plan: as noted on admission with generalized weakness, low BP, hypoglycemia, hypothermia, lactic acidosis, and CHRISTIANE source unclear UA not c/w with UTI COVID PCR negative blood NGTD and urine culture negative possible due to lung infection of bacteremia(?) Lactic acid still high. gentle IVF resuscitation (given known cardiomyopathy) along with IV albumin given lactic acidosis empiric antibiotics, cefepime and vancomycin. follow culture datea (4) Hypotension: Qualifiers: Hypotension type: hypotension due to drug Qualified Code(s): I95.2 - Hypotension due to drugs Code(s): I95.9 - Hypotension, unspecified Status: Acute Assessment and Plan: chronic issues at baseline (presumably due to cardiomyopathy) -- usually 90 - 100s systolic at best however, sepsis and medications could be playing a role (5) Cardiomyopathy: Qualifiers: Cardiomyopathy type: dilated Qualified Code(s): I42.0 - Dilated cardiomyopathy Code(s): I42.9 - Cardiomyopathy, unspecified Status: Chronic Assessment and Plan: cardiology saw as noted by recent echo (11/08/21): LV dimension is severely enlarged, LA dimension is severely enlarged, LV systolic function severely reduced estimated EF is 20-25%. Grade 2 diastolic dysfunction RV chamber dimension is severely enlarged, RV systolic function is severely reduced. There is moderate to severe tricuspid valve regurgitation. Severe pulmonary hypertension with RVSP of 63 mmHg (6) Anemia: Qualifiers: Anemia type: other cause Other causes of anemia: chronic disease, other Qualified Code(s): D63.8 - Anemia in other chronic diseases classified elsewhere Code(s): D64.9 - Anemia, unspecified Status: Acute Assessment and Plan: likely due to acute illness, CHRISTIANE, CKD, and chronic disease hb 8.9. (7) Generalized weakness: Code(s): R53.1 - Weakness Status: Acute Assessment and Plan: suspect multifactorial: acute on chronic hypotension hypoglycemia possible infection sepsis continue therapy as outlined (8) Diabetes mellitus: Qualifiers: Diabetes mellitus type: type 2 Diabetes mellitus group home insulin use: with intermission coordinator use D
--- NOTE | 2022-01-05 19:11 | PC.NURSE ---
[facility] at 1800, NICOLE Merritt notified, friend Pete at bedside.
--- NOTE | 2022-01-05 19:59 | PC.NURSE ---
Pt taken to [facility] at 1949.
--- NOTE | 2022-01-08 14:30 | PM.DDS ---
Discharge Summary Date and Time Date of : 01/05/22 Time of : 18:00 Provider Pronounced By: ANKITA Mcneal RN Probable Cause of Probable Cause of : Septic and cardiogenic shock, heart failure, acute renal failure, anemia Summary Hospital Course: 61-year-old male who was a resident [facility] was brought to ED via EMS for evaluation of generalized weakness and poor p.o. intake on 01/02. He was found to be dehydrated and hypotensive. He was diagnosed with sepsis and was started on IV antibiotics. Patient also was in acute kidney injury over her is chronic kidney disease and also has congestive heart failure with cardiomyopathy. Patient deteriorated and was transferred to ICU next day. Patient was given IV fluid bolus, started on IV antibiotics IV vasopressors. He had EF of 20-25% on his most recent echocardiogram and severe pulmonary hypertension along with severely enlarged RV with RV failure. And also had moderate to severe TR pulmonary hypertension and grade 2 diastolic dysfunction. His cardiac meds were held because of his hypotension. He was treated with cautious amount IV fluids due to his congestive heart failure. Cardiology and Nephrology were consulted and evaluated patient. Patient was requiring multiple vasopressors at high dose he had persistently elevated lactic acid level. General surgery was consulted but patient was deemed too unstable for any sort of surgical intervention. Dr. Fernando spoke to patient's healthcare power consumer attorney Misty Ortiz who is also patient's friend and inside barrel lathe operator. They did discussed the patient's condition including fact that patient was in multiorgan failure. She requested the patient be made DNR and DNI as she did not feel the patient wanted any aggressive resuscitation or mechanical ventilation. At that time patient was continued on vasopressors. Despite antibiotics vasopressors ionotropic support IV bicarb IV fluid patient continued to deteriorate requiring high doses of multiple vasopressors. On dextrose infusion due to hypoglycemia. FFP was ordered for DIC. On 01/05 I again spoke to patient's POA Misty Ortiz by phone in presence of patient's nurse Ankita. Misty is a friend, patient's inside barrel lathe operator and healthcare power of consumer attorney.? She told me the patient is not in contact with any of his family.? She had discussed the day before with Dr. Fernando and was aware of patient's critical condition including him on multiple vasopressor support.?She was aware of patient's heart failure kidney failure and evaluation by general surgery.? We discussed in detail regarding goals of care.? She told me the patient had told her that he did not want any aggressive therapy.? She states that she wants patient to be comfortable and pain-free and wants us to give him morphine for pain if needed.? I explained her the side effect of opioids which may include inhibition of respiratory status and drop in his blood pressure since patient is on multiple vasopressors.? She states that she understands the implication but still want his pain and distress to be treated.? She states that she does not feel comfortable stopping the treatment that he is already on but is comfortable if blood pressure drops in order to treat his discomfort and pain and even if it means that he will .? She states that she does not want anything further added or escalated in his care including additional medication, invasive procedures or hemodialysis.? She did not want to discontinue what he was already on and wants his pain and distress to be treated.? I explained to her that if we treat his pain liberally that his blood pressure will drop despite being on vasopressors and that mainly to his She verbalized understanding and wanted to go ahead with this plan of continued current support, treatment of his pain and distress, no further escalation of dosing or adding additional vasopressor medications, no additi
[2022-01-25 09:02] LABS: Glucose Point of Care 30 mg/dl (65-105)
[2022-01-25 09:02] LABS: Glucose Point of Care 86 mg/dl (65-105)
[2022-01-25 09:02] LABS: Glucose Point of Care 134 mg/dl (65-105)
[2022-01-25 09:02] LABS: Glucose Point of Care 85 mg/dl (65-105)
[2022-01-25 09:02] LABS: Glucose Point of Care 93 mg/dl (65-105)
[2022-01-25 09:02] LABS: Glucose Point of Care 47 mg/dl (65-105)
== END 2022-01-05 18:00 | disposition expired | DRG 720 ==
LOC: ANHED 04:58 → ANHICU 05:12
PROVIDERS: Internal Medicine; Internal Medicine Nephrology; Admitting Provider Internal Medicine; Emergency Provider Emergency Medicine; PCP Internal Medicine; Visit Provider Internal Medicine
DX: A41.9 Sepsis, unspecified organism (principal); I13.0 Hypertensive heart and chronic kidney disease with heart failure and stage 1 through stage 4 chronic kidney disease, or unspecified chronic kidney disease; E11.22 Type 2 diabetes mellitus with diabetic chronic kidney disease; I50.23 Acute on chronic systolic (congestive) heart failure; N17.9 Acute kidney failure, unspecified; R57.0 Cardiogenic shock; R65.21 Severe sepsis with septic shock; I46.9 Cardiac arrest, cause unspecified; N18.32 Chronic kidney disease, stage 3b; D65 Disseminated intravascular coagulation [defibrination syndrome]; E11.649 Type 2 diabetes mellitus with hypoglycemia without coma; Z20.822 Contact with and (suspected) exposure to COVID-19; K74.60 Unspecified cirrhosis of liver; I95.2 Hypotension due to drugs; D69.3 Immune thrombocytopenic purpura; I48.91 Unspecified atrial fibrillation; N40.0 Benign prostatic hyperplasia without lower urinary tract symptoms; E86.0 Dehydration; E03.9 Hypothyroidism, unspecified; I42.8 Other cardiomyopathies; D63.1 Anemia in chronic kidney disease; D63.8 Anemia in other chronic diseases classified elsewhere; E87.2 Acidosis; K29.60 Other gastritis without bleeding; Z79.82 Long term (current) use of aspirin; Z79.4 Long term (current) use of insulin; Z95.810 Presence of automatic (implantable) cardiac defibrillator
CPT/HCPCS: 36415; 36430; 36600; 71045; 74176; 76775; 80053; 80069; 80202; 81001; 81050; 82140; 82436; 82550; 82570; 82805; 82948; 83036; 83605; 83690; 83735; 84100; 84145; 84156; 84300; 85025; 85055; 85384; 85610; 85730; 85999; 86850; 86900; 86901; 86920; 87040; 87086; 87088; 93005; 93971; 94640; 96365; 96366; 96367; 96368; 99285; A9270; C1751; C9113; C9803; G0378; G0379; J0610; J0692; J1250; J2060; J2270; J2370; J3010; J3370; J3430; J7040; J7050; J7060; P9016; P9047; U0003; U0005